=== PATIENT | male | born 1955 | race Caucasian/White ===

== ENCOUNTER 2016-12-26 17:56 | Emergency (ER) | payer OTHER ==
[2016-12-26 18:00] VITALS: BP 172/71; PULSE 61; RESP 18; TEMP 97.8
--- NOTE | 2016-12-26 18:50 | ED ---
General Adult HPI - General Chief complaint: Wound/Laceration Stated complaint: finger pain Time Seen by Provider: 12/26/16 18:36 Source: patient, RN notes reviewed Mode of arrival: ambulatory Limitations: no limitations - History of Present Illness Initial comments: This is a 61-year-old male who presents with a laceration to the left index finger that happened approximately 6 hours ago. Patient states he is on Plavix daily. Patient states he cut his left thumb with a utility knife. Patient states he is up-to-date on his tetanus shot. Patient denies any numbness/ tingling/weakness.Patient denies any recent fever, chills, shortness breath, chest pain, abdominal pain, nausea/vomiting/diarrhea, back pain, hematuria, headache, or visual changes, or any other complaints. - Related Data Home Medications Medication Instructions Recorded Confirmed Metoprolol Succinate (ER) [Toprol 12.5 mg PO BID 05/25/14 10/09/15 XL] hydrALAZINE HCL [Apresoline] 50 mg PO BID 05/25/14 10/09/15 Aspirin 325 mg PO DAILY 08/28/15 10/09/15 Atorvastatin [Lipitor] 80 mg PO DAILY 08/28/15 10/09/15 Glimepiride [Amaryl] 1 mg PO AC-BRKFST 08/28/15 10/09/15 metFORMIN HCL [Glucophage] 500 mg PO DAILY 08/28/15 10/09/15 traZODone HCL [Desyrel] 100 mg PO HS 08/28/15 10/09/15 HYDROcodone/APAP 7.5-325MG [[place] 1 tab PO Q4H PRN 09/04/15 10/09/15 7.5-325] Lisinopril [Zestril] 2.5 mg PO BID 09/04/15 10/09/15 Previous Rx's Medication Instructions Recorded Furosemide [Lasix] 80 mg PO BID #60 tablet 05/26/14 Clopidogrel [Plavix] 75 mg PO DAILY #30 tab 09/07/15 Cephalexin [Keflex] 500 mg PO Q12HR 7 Days 12/26/16 Allergies Allergy/AdvReac Type Severity Reaction Status Date / Time No Known Allergies Allergy Verified 12/26/16 18:00 Review of Systems ROS Statement: Those systems with pertinent positive or pertinent negative responses have been documented in the HPI. ROS Other: All systems not noted in ROS Statement are negative. Past Medical History Past Medical History: Chest Pain / Angina, Heart Failure, Diabetes Mellitus, Hyperlipidemia, Hypertension, Myocardial Infarction (IA), Pneumonia Additional Past Medical History / Comment(s): 10/09/15 Pt admitted s/p redo bilateral fem fem crossover graft. Other HX: pvd,brochitis,kidney stone, arthritis bilateral hands fingers and R ankle ,n/t bilateral feet Last Myocardial Infarction Date:: UNSURE History of Any Multi-Drug Resistant Organisms: None Reported Past Surgical History: Adenoidectomy, AICD, Appendectomy, Heart Catheterization , Orthopedic Surgery, Pacemaker, Tonsillectomy Additional Past Surgical History / Comment(s): 10/09/15 Redo bilateral femfem crossover graft. Other SX: left leg arterial bypass, pacemaker/defibrillator, sx lt hand, rt foot,cataracts,ABD AORTAGRAM,LEFT ARTERIAL ANGIOGRAM, LEFT ILIAC STENTING 09/05/15, R ankle surgery. Past Anesthesia/Blood Transfusion Reactions: Postoperative Nausea & Vomiting ( PONV) Type of Cardiac Device: Permanent Pacemaker, AICD Device Placement Date:: february 2014 Past Psychological History: No Psychological Hx Reported Additional Psychological History / Comment(s): Pt resides with his significant other. He uses no assistive devices. He drives. He is normally independent. Smoking Status: Former smoker Past Alcohol Use History: None Reported Past Drug Use History: None Reported - Past Family History Mother Family Medical History: Cancer Sister(s) Family Medical History: Cancer General Exam - General Exam Comments Initial Comments: General: The patient is awake and alert, in no distress, and does not appear acutely ill. Neck: The neck is supple, there is no tenderness or JVD. Cardiovascular: There is a regular rate and rhythm. No murmur, rub or gallop is appreciated. Respiratory: Lungs are clear to auscultation, respirations are non-labored, breath sounds are equal. No wheezes, stridor, rales, or rhonchi. Musculoskeletal: Full range of motion, strength 5/5 and Sensation intact. Neurological: A&O x 3. CN II-XII intact, There are no obvious motor or sensory deficits. Coordination appears grossly intact. Speech is normal. Skin: There is approximately 3.5 laceration to the palmar aspect of the left index finger just below the DIP joint extending to the tip of the finger. There is current active bleeding. Skin is warm and dry and no rashes are noted. Psychiatric: Normal mood and affect. Limitations: no limitations Course Vital Signs 12/26/16 17:57 Temperature 97.8 F Pulse Rate 61 Respiratory 18 Rate Blood Pressure 172/71 O2 Sat by Pulse 97 Oximetry Procedures - Procedures Initial comment: The skin was anesthetized with 1% lidocaine. The laceration was then cleansed and irrigated with normal saline. The wound was inspected, and there was no evidence of injury to deep structures. No foreign body was noted in the wound. A total of 5 skin sutures were placed utilizing 5-0 Ethilon. Laceration is approx 2.5 cm. Medical Decision Making - Medical Decision Making This is a 61-year-old male who presents with laceration to the left index finger 6 hours. On physical exam There is approximately 3.5 cm laceration to the palmar aspect of the left index finger just below the DIP joint extending to the tip of the finger. There is current active bleeding. An x-ray of the left hand was done and reviewed showing: #1 partial absence of the distal phalanx tuft of the second digit with overlying soft tissue abnormality, likely chronic. #2 otherwise no evidence of acute fracture or dislocation. #3 mild degenerative changes. Report read by Dr. Angulo Because patient is currently on anticoagulants discussed that the patient will need a few sutures right compression and stop the bleeding. I discussed that patient will be put on a course of antibiotics to prevent infection. The skin was anesthetized with 1% lidocaine. The laceration was then cleansed and irrigated with normal saline. The wound was inspected, and there was no evidence of injury to deep structures. No foreign body was noted in the wound. A total of 5 skin sutures were placed utilizing 5-0 Ethilon. Laceration is approx 2.5 cm. Patient tolerated procedure well. There is no active bleeding after sutures were placed. Patient was given a finger splint to protect sutures. I discussed that sutures need to be removed in 8-10 days. I discussed that rinsing and showering are okay but to avoid submerging the wound in water. Discussed [id number] Tylenol and Motrin as needed for any pain. I discussed use of topical Neosporin. I discussed return parameters and signs of infection.Discussed that patient should follow up with PCP in one to 2 days or return to the [facility] for any worsening symptoms or for any further concerns. Patient was receptive to this plan and patient will be discharged home. Disposition Clinical Impression: Laceration Disposition: HOME SELF-CARE Condition: Good Instructions: Laceration (ED), Care For Your Stitches (ED) Additional Instructions: Please have sutures removed in 8-10 days. Please finish the entire course of antibiotics. Please keep the area clean and dry. Rinsing and showering are okay but please avoid submerging the wound in water. May apply topical Neosporin. Please follow-up with family doctor in the next 2 days of symptoms have not improved. Please return to emergency room if the symptoms increase or worsen or for any other concerns. Prescriptions: Cephalexin [Keflex] 500 mg PO Q12HR 7 Days Referrals: Moises Bailey MD [Primary Care Provider] - 1-2 days
--- NOTE | 2016-12-26 19:07 | XR ---
EXAMINATION TYPE: XR hand complete LT DATE OF EXAM: 12/26/2016 6:50 PM COMPARISON: NONE HISTORY: Hand pain TECHNIQUE: 3 views of the left hand were obtained. FINDINGS: There is partial absence of the second digit distal phalanx tuft with overlying soft tissue abnormality. No focal laceration is identified, this is likely a chronic finding. Mild sclerosis is seen at the first carpal metacarpal joint as well as few osseous lucencies at the distal interphalang eal joint of the third digit and near the radial styloid, likely on a degenerative basis. Otherwise t he joint spaces are maintained and no acute fracture is identified. IMPRESSION: 1. Partial absence of the distal phalanx tuft of the second digit with overlying soft tissue abnormal ity, likely chronic. 2. Otherwise no evidence of acute fracture or dislocation 3. Mild degenerative changes.
== END 2016-12-26 19:33 | disposition home or self-care (01) ==
LOC: EC 17:56
DX: E11.9 Type 2 diabetes mellitus without complications (principal); I10 Essential (primary) hypertension; E78.5 Hyperlipidemia, unspecified; Z95.810 Presence of automatic (implantable) cardiac defibrillator; Z98.61 Coronary angioplasty status; Z79.01 Long term (current) use of anticoagulants; I25.2 Old myocardial infarction; Z79.84 Long term (current) use of oral hypoglycemic drugs; Z79.02 Long term (current) use of antithrombotics/antiplatelets; Z87.891 Personal history of nicotine dependence
CPT/HCPCS: 12001; 99283

== ENCOUNTER → 2017-02-19 | Outpatient (CLI) | payer OTHER ==
[2017-02-19 17:31] LABS: Anion Gap 12 mmol/L; Blood Urea Nitrogen 40 mg/dL (9-20); Calcium 8.9 mg/dL (8.4-10.2); Carbon Dioxide 25 mmol/L (22-30); Chloride 103 mmol/L (98-107); Glucose 105 mg/dL (74-99); Non-African American GFR(MDRD) >60 (>60 ml/min/1.73 sqM); Potassium 4.9 mmol/L (3.5-5.1); Sodium 140 mmol/L (137-145)
[2017-02-19 20:45] LABS: Basophils # (A) 0.1 k/uL (0-0.2); Basophils % (A) 1 %; CH 28.9; CHCM 32.5; Eosinophils # (A) 0.4 k/uL (0-0.7); Eosinophils % (A) 5 %; HCT 35.8 % (39.0-53.0); HDW 2.43; HGB 12.1 gm/dL (13.0-17.5); Luc # (Auto) 0.26; Luc % (Auto) 3; Lymphocytes # (A) 2.9 k/uL (1.0-4.8); Lymphocytes % (A) 37 %; MCH 30.2 pg (25.0-35.0); MCHC 33.8 g/dL (31.0-37.0); MCV 89.3 fL (80.0-100.0); Mean Platelet Volume 7.7; Monocytes # (A) 0.4 k/uL (0-1.0); Monocytes % (A) 5 %; Neutrophils # (A) 3.9 k/uL (1.3-7.7); Neutrophils % (A) 49 %; RBC 4.01 m/uL (4.30-5.90); RDW 13.9 % (11.5-15.5); WBC 7.9 k/uL (3.8-10.6); WBC (Perox) 8.48
== END ==
LOC: LABPAT 16:40
PROVIDERS: ATTEND Urology
DX: Z01.812 Encounter for preprocedural laboratory examination (principal); N40.1 Benign prostatic hyperplasia with lower urinary tract symptoms; E78.5 Hyperlipidemia, unspecified; R39.14 Feeling of incomplete bladder emptying
CPT/HCPCS: 80048; 85025

== ENCOUNTER 2017-02-27 09:11 | Day surgery (SDC) | payer MEDICARE, OTHER ==
[2017-02-24 16:21] VITALS: BMI 32.5
[~2017-02-27 09:11] MED LIST: DEXAMETHASONE SOD PHOSPHATE 10 MG/ML 1 ML VIAL IV ONE; HYDROmorphone 1 MG/ML 1 ML SYRINGE IVP PRN; MIDAZOLAM 2 MG/2 ML VIAL IV PRN; ONDANSETRON 4 MG/2 ML VIAL IVP ONE; SCOPOLAMINE 1.5MG/72HR PATCH TRANSDERM ONE
[2017-02-27 09:47] LABS: Glucose,Whole Blood 147 mg/dL (75-99)
[2017-02-27] MEDS ORDERED: LIDOCAINE 1% 20 ML VIAL (10MG/ML) FOR IV START INTRADERMA ONE (09:55)
[2017-02-27] MEDS: LACTATED RINGERS 1,000 ML IV SCH (09:55)
[2017-02-27] MEDS: ceFAZolin 2 GM in SODIUM CHLORIDE 0.9% 100 ML IVPB ONE ×2 (11:50→12:05)
[2017-02-27] MEDS ORDERED: PROPOFOL 10 MG/ML 20 ML VIAL IV ONE (11:50)
[2017-02-27] MEDS ORDERED: LIDOCAINE 1% INJ 10MG/ML (20 ML MDV) ONE (11:50)
[2017-02-27] MEDS ORDERED: MIDAZOLAM 2 MG/2 ML VIAL ONE (11:50)
--- NOTE | 2017-02-27 13:14 | P.OP ---
Date of Procedure: 02/27/17 Preoperative Diagnosis: BPH with Obstruction Postoperative Diagnosis: Same Procedure(s) Performed: Cystoscopy, Bipolar Transurethral Resection of Prostate (TURP) Anesthesia: spinal Surgeon: Gilberto Cordova Estimated Blood Loss (ml): 50 IV fluids (ml): 400 Pathology: other (Prostate chips) Condition: stable Disposition: PACU Indications for Procedure: He is a 61-year-old male with a right spermatocele. He reports a weak, hesitant stream, difficulty emptying his bladder, and nocturia. He has failed treatment with tamsulosin and Ditropan. DAREN revealed the prostate to be mildly enlarged but smooth. Cystoscopy shows evidence of BPH, and he desires a TURP. He has been cleared by Dr. Gandara, who advises spinal anesthesia. Operative Findings: Bilobar BPH with high median bar. Description of Procedure: The patient was taken in the operating room and placed in the dorsolithotomy position after being given a spinal anesthetic, The external genitalia was prepped and draped sterilely. The 25-Greenlandic ACMI resectoscope sheath was introduced into the bladder. The bladder was inspected. Both ureteral orifices were of normal anatomic location and configuration, and clear urine effluxed from both. No tumors or foreign bodies were seen. Examination of the prostate revealed complete obstruction with a bilobar configuration and a high median bar. Using the bipolar cutting loop, the posterior vesical neck was incised in the midline, extending up to the verumontanum. Next, the lateral lobes were resected down to the surgical capsule. The floor of the prostate was then resected, proximal to the verumontanum. Lastly, any remaining anterior tissue was resected. The prostatic fossa was then carefully examined. The remaining apical tissue was carefully resected. The resection was carried down to the surgical capsule in all 4 quadrants. The prostatic fossa was then carefully examined, and any areas of bleeding were controlled with electrocautery. Excellent hemostasis was attained. The resectoscope was withdrawn into the bulbous urethra. The external urinary sphincter remained intact. The prostatic fossa was open. The Stream5 evacuator was used to remove all prostate chips from the bladder. These were saved and sent for pathologic examination. The resectoscope was removed, and a 20 Greenlandic Crandall catheter was placed. The return was essentially clear. The patient tolerated the procedure well was taken to the recovery room in stable condition.
[2017-02-27] MEDS ORDERED: MAG HYDROX/AL HYDROX/SIMETH 30 ML CUP PO PRN (13:15)
[2017-02-27] MEDS ORDERED: ACETAMINOPHEN TAB 325 MG TAB PO PRN (13:15)
[2017-02-27] MEDS ORDERED: BELLADONNA-OPIUM 16.2-60 MG 1 EACH SUPP RECTAL PRN (13:15)
[2017-02-27 13:36] LABS: Glucose,Whole Blood 128 mg/dL (75-99)
[2017-02-27] MEDS: DEXTROSE 5%-0.45% NACL 1,000 ML IV SCH (14:44)
[2017-02-27] MEDS: HYDROcodone/APAP 7.5-325MG 1 EACH TAB PO SCH ×2 (15:57→21:53)
[2017-02-27] MEDS: CARVEDILOL 3.125 MG TAB PO SCH (18:23)
[2017-02-27] MEDS ORDERED: traZODone HCL 100 MG TAB PO SCH (21:00)
[2017-02-27] MEDS: FUROSEMIDE 40 MG TAB PO SCH (21:52)
[2017-02-27] MEDS: DOCUSATE 100 MG CAP PO SCH (21:52)
[2017-02-28 01:23] VITALS: TEMP 98.1
[2017-02-28] MEDS: DEXTROSE 5%-0.45% NACL 1,000 ML IV SCH (03:02)
[2017-02-28] MEDS: DOCUSATE 100 MG CAP PO SCH (07:12)
[2017-02-28] MEDS: CARVEDILOL 3.125 MG TAB PO SCH (07:13)
[2017-02-28] MEDS: HYDROcodone/APAP 7.5-325MG 1 EACH TAB PO SCH (07:13)
[2017-02-28] MEDS: FUROSEMIDE 40 MG TAB PO SCH (07:13)
[2017-02-28] MEDS: LACTATED RINGERS 1,000 ML IV SCH (07:18)
[2017-02-28] MEDS ORDERED: PANTOPRAZOLE 40 MG TABLET PO SCH (07:30)
[2017-02-28] MEDS ORDERED: GLIMEPIRIDE 1 MG TAB PO SCH (07:30)
[2017-02-28] MEDS ORDERED: LISINOPRIL 10 MG TAB PO SCH (09:00)
[2017-02-28] MEDS ORDERED: METOPROLOL SUCCINATE (ER) 50 MG TAB.ER.24H PO SCH (09:00)
[2017-02-28] MEDS ORDERED: ATORVASTATIN 80 MG TAB PO SCH (09:00)
[2017-02-28] MEDS ORDERED: SPIRONOLACTONE 25 MG TAB PO SCH (09:00)
[2017-02-28 09:12] VITALS: BP 135/65; PULSE 64; RESP 15
--- NOTE | 2017-03-02 12:20 | P.DS ---
Providers Expected date of discharge: 02/28/17 Attending physician: Gilberto Cordova Primary care physician: Moises Gorehven Hospital Course: On the day of admission, the patient underwent an uncomplicated bipolar transurethral resection of prostate under spinal anesthesia. The postoperative course was unremarkable. He remained afebrile with stable vital signs. The Crandall catheter drained clear urine overnight, without the need for any irrigation. He was comfortable at the time of discharge. Procedures: Cystoscopy, bipolar transurethral resection of prostate (TURP) on 02/27/2017. Patient Condition at Discharge: Good Plan - Discharge Summary New Discharge Prescriptions: HYDROcodone/APAP 7.5-325MG [[place] 7.5-325] 1 tab PO Q6HR PRN #15 tab PRN Reason: Moderate To Severe Pain Discharge Medication List Aspirin 325 mg PO DAILY 08/28/15 [History] Atorvastatin [Lipitor] 80 mg PO DAILY 08/28/15 [History] Glimepiride [Amaryl] 1 mg PO AC-BRKFST 08/28/15 [History] traZODone HCL [Desyrel] 100 mg PO HS 08/28/15 [History] HYDROcodone/APAP 7.5-325MG [[place] 7.5-325] 1 tab PO TID 09/04/15 [History] Clopidogrel [Plavix] 75 mg PO DAILY #30 tab 09/07/15 [Rx] Furosemide [Lasix] 40 mg PO BID 02/24/17 [History] Lisinopril [Zestril] 10 mg PO DAILY 02/24/17 [History] Metoprolol Succinate (ER) [Toprol Xl] 50 mg PO DAILY 02/24/17 [History] Omeprazole 20 mg PO DAILY 02/24/17 [History] Spironolactone [Aldactone] 25 mg PO DAILY 02/24/17 [History] Carvedilol [Coreg] 3.125 mg PO BID 02/27/17 [History] HYDROcodone/APAP 7.5-325MG [[place] 7.5-325] 1 tab PO Q6HR PRN #15 tab 02/28/17 [ Rx] Follow up Appointment(s)/Referral(s): Amy Felix, PAC [PHYSICIAN ORE CHARGER] - 03/03/17 10:50 am Activity/Diet/Wound Care/Special Instructions: Discharge home with Crandall catheter. Drink plenty of fluids. Diet as tolerated. Avoid strenuous activity. Avoid constipation; takes stool softener if necessary. Hold Plavix and aspirin. No driving for 3 days. Okay to shower. F/U with Amy Felix 4/10 am. Discharge Disposition: HOME SELF-CARE
--- NOTE | 2017-03-07 15:20 | CONS ---
DATE OF CONSULTATION: 02/28/2017 CHIEF COMPLAINT: Obstructive uropathy. HISTORY OF PRESENT ILLNESS: This 61-year-old otherwise healthy white male has come in for an elective transurethral prostatectomy. He has a history of mild central hypertension and type 2 NIDDM. He also has a history of coronary artery disease and peripheral vascular occlusive disease as well as congestive heart failure, but all of these have been under control and have not been a problem for him of late. REVIEW OF SYSTEMS: He has had no change in vision or hearing, chest pain, cough, hemoptysis, shortness of breath, sputum production, orthopnea, PND, recent angina, palpitations, syncope, abdominal pain, nausea, vomiting, food intolerance, melena, hematochezia, jaundice, hepatitis, cirrhosis, hematuria, prostatitis, carcinoma of the prostate. Past medical history, family history, and personal and social histories ( ). He is NOT ALLERGIC TO ANY MEDICATION. DAILY MEDICATION: 1. Metoprolol 50 mg 1/2 tablet twice a day. 2. Omeprazole 20 mg once a day. 3. Ditropan XL 10 mg once a day. 4. Amaryl 1 mg once a day. 5. Vicodin 7.5 b.i.d. p.r.n. 6. Lasix 40 mg twice a day. 7. Lipitor 80 mg at bedtime. 8. Clopidogrel 75 mg once a day. 9. Lisinopril 10 mg once a day. 10. Aldactone 25 mg once a day. 11. Full-strength aspirin once a day. Past medical history reveals that he has had a T&A, ( ) of the right ankle, pacemaker and arterial grafts for PVOD. Apparently he also has had an aortofemoral bypass and a transfemoral bypass. He also has a pacemaker/defibrillator. He used to smoke but does not smoke any longer. PHYSICAL EXAMINATION: Blood pressure 132/62, pulse 58 and regular, respiration 18. He is afebrile. In general he appeared to well developed, well nourished, in no acute distress. Skin color is normal. Skin is warm and dry. Lymph nodes are not enlarged. Head, ears, eyes, nose, mouth and throat were normal. Neck veins were not distended. Carotids were normal. Chest was clear. Cardiac exam demonstrated normal sinus rhythm with no murmurs or extra sounds. The abdomen was soft and nontender without visceromegaly or masses. Extremities were normal. Neurologically he was intact. Crandall catheter was in place. IMPRESSION: 1. Benign prostatic hypertrophy. 2. Hypertension. 3. Coronary artery disease. 4. Peripheral vascular occlusive disease. 5. Atherosclerotic ( ). 6. Type 2 hhr-zcjvrmi-hidgmdwoh diabetes mellitus. 7. History of cardiac arrhythmia. RECOMMENDATION: None. He is stable at the present time. Blood sugars are adequate and he does not have any chest pain or arrhythmias. No further recommendations. Thank you.
== END 2017-02-28 12:05 | disposition home or self-care (01) ==
LOC: OR 09:11 → 3SUR 13:12 → OR 02-28 12:05
PROVIDERS: ATTEND Urology
DX: N40.1 Benign prostatic hyperplasia with lower urinary tract symptoms (principal); R39.14 Feeling of incomplete bladder emptying; N43.40 Spermatocele of epididymis, unspecified; E78.5 Hyperlipidemia, unspecified; E11.9 Type 2 diabetes mellitus without complications; Z79.84 Long term (current) use of oral hypoglycemic drugs; I25.119 Atherosclerotic heart disease of native coronary artery with unspecified angina pectoris; I11.0 Hypertensive heart disease with heart failure; I50.9 Heart failure, unspecified; Z87.891 Personal history of nicotine dependence; Z95.810 Presence of automatic (implantable) cardiac defibrillator; I25.2 Old myocardial infarction; K21.9 Gastro-esophageal reflux disease without esophagitis; I42.8 Other cardiomyopathies; I73.9 Peripheral vascular disease, unspecified; Z79.82 Long term (current) use of aspirin; Z79.02 Long term (current) use of antithrombotics/antiplatelets; Z79.891 Long term (current) use of opiate analgesic; Z79.899 Other long term (current) drug therapy
CPT/HCPCS: 88305; 52630; J2250; J1100; J0690; J2405; J2001; J2704

== ENCOUNTER → 2018-02-18 | Outpatient (CLI) | payer MEDICARE, OTHER ==
[2018-02-18 11:01] LABS: HCT 39.6 % (39.0-53.0); HGB 13.3 gm/dL (13.0-17.5); MCH 28.2 pg (25.0-35.0); MCHC 33.6 g/dL (31.0-37.0); MCV 83.8 fL (80.0-100.0); Platelet Count 224 k/uL (150-450); RBC 4.72 m/uL (4.30-5.90); RDW 13.8 % (11.5-15.5); WBC 8.2 k/uL (3.8-10.6)
[2018-02-18 11:13] LABS: Anion Gap 12 mmol/L; Blood Urea Nitrogen 25 mg/dL (9-20); Calcium 9.5 mg/dL (8.4-10.2); Carbon Dioxide 28 mmol/L (22-30); Chloride 101 mmol/L (98-107); Glucose 108 mg/dL (74-99); Potassium 5.5 mmol/L (3.5-5.1); Sodium 141 mmol/L (137-145)
== END | disposition home or self-care (01) ==
LOC: LABWHC1 10:35
PROVIDERS: ATTEND Internal Medicine Interventional Cardiology
DX: I11.0 Hypertensive heart disease with heart failure (principal); I47.2 Ventricular tachycardia; I50.31 Acute diastolic (congestive) heart failure
CPT/HCPCS: 36415; 80048; 85027

== ENCOUNTER → 2018-08-06 | Outpatient (CLI) | payer MEDICARE, OTHER ==
[2018-08-06 08:52] LABS: Calcium 10.1 mg/dL (8.4-10.2)
[2018-08-06 09:10] LABS: Potassium 6.1 mmol/L (3.5-5.1)
== END | disposition home or self-care (01) ==
LOC: LABWHC1 08:00
PROVIDERS: ATTEND Internal Medicine Clinical Cardiac Electrophysiology
DX: I42.8 Other cardiomyopathies (principal)
CPT/HCPCS: 36415; 80048

== ENCOUNTER → 2019-06-29 | Outpatient (CLI) | payer MEDICARE, OTHER ==
[2019-06-29 16:44] LABS: HCT 39.5 % (39.0-53.0); HGB 13.2 gm/dL (13.0-17.5); MCH 29.4 pg (25.0-35.0); MCHC 33.4 g/dL (31.0-37.0); MCV 87.9 fL (80.0-100.0); Mean Platelet Volume 7.8; Platelet Count 194 k/uL (150-450); RBC 4.49 m/uL (4.30-5.90); WBC 9.8 k/uL (3.8-10.6)
[2019-06-29 16:51] LABS: Potassium 5.3 mmol/L (3.5-5.1)
== END | disposition home or self-care (01) ==
LOC: LABPAT 16:12
PROVIDERS: ATTEND Internal Medicine Interventional Cardiology
DX: Z01.812 Encounter for preprocedural laboratory examination (principal); I70.213 Atherosclerosis of native arteries of extremities with intermittent claudication, bilateral legs
CPT/HCPCS: 36415; 80051; 82565; 84520; 85027

== ENCOUNTER 2019-07-16 10:34 | Day surgery (SDC) | payer MEDICARE, OTHER ==
[2019-07-15 08:58] VITALS: BMI 34.0
[~2019-07-16 10:34] MED LIST changes: -DEXAMETHASONE SOD PHOSPHATE 10 MG/ML 1 ML VIAL IV ONE; -HYDROmorphone 1 MG/ML 1 ML SYRINGE IVP PRN; -MIDAZOLAM 2 MG/2 ML VIAL IV PRN; -ONDANSETRON 4 MG/2 ML VIAL IVP ONE; -SCOPOLAMINE 1.5MG/72HR PATCH TRANSDERM ONE; +SODIUM CHLORIDE 0.9% 1,000 ML in EMPTY BAG 1 BAG IV ONE
[2019-07-16 11:46] VITALS: TEMP 98.5
[2019-07-16 12:01] LABS: Glucose,Whole Blood 132 mg/dL (75-99)
[2019-07-16] MEDS ORDERED: SODIUM CHLORIDE 0.9% 1,000 ML IV ONE (13:45)
[2019-07-16] MEDS ORDERED: LIDOCAINE 1% INJ 10MG/ML (20 ML MDV) SQ ONE (13:47)
[2019-07-16] MEDS ORDERED: MIDAZOLAM (PF) 2 MG/2 ML VIAL IV ONE (13:47)
[2019-07-16] MEDS: VERAPAMIL SYRINGE (5 MG/10 ML) INTRAARTER ONE ×2 (13:49→14:00)
[2019-07-16] MEDS ORDERED: IOPAMIDOL-250 100ML BTL INTRAARTER ONE ×2 (14:02)
[2019-07-16] MEDS ORDERED: HEPARIN SODIUM 1,000 UN/ML (10ML VL) IV ONE (14:11)
[2019-07-16] MEDS ORDERED: SODIUM CHLORIDE 0.9% 1,000 ML IV SCH (14:15)
[2019-07-16 14:40] LABS: Glucose,Whole Blood 105 mg/dL (75-99)
[2019-07-16 15:55] VITALS: RESP 18
[2019-07-16 15:56] VITALS: BP 128/64; PULSE 70
--- NOTE | 2019-07-16 21:51 | AN ---
ANGIOGRAPHY REPORT DATE OF SERVICE: July 16, 2019 PERFORMING PHYSICIAN: Valeriy Gandara M.D. PROCEDURE PERFORMED: 1. Abdominal aortogram. 2. Bilateral lower extremities runoff. INDICATIONS: This is a pleasant 63-year-old gentleman with history of peripheral arterial disease where he underwent in the past left iliac stenting and subsequently left to right fem- fem bypass, was experiencing symptoms of bilateral lower extremities intermittent claudication. He was brought today to undergo an aortogram with runoff. APPROACH: Right radial artery. COMPLICATION: None. LEVEL OF SEDATION: Moderate with sedation length of 30 minutes. PROCEDURE DESCRIPTION: After obtaining an informed consent, the patient was brought to the cardiac slab grinder. The right radial artery was cannulated using micropuncture technique, the micropuncture wire passed easily then I placed a 5-Malaysian sheath. I did give the patient 10,000 units of heparin IV. I did an abdominal aortogram and bilateral lower extremities runoff using 5-Malaysian pigtail catheter which was initially placed at the level of the renal arteries. Then it was pulled into above the bifurcation of the aorta. The procedure was completed without any complication. SELECTIVE PERIPHERAL ANGIOGRAM: 1. The aorta is angiographically normal. 2. Iliac arteries: The right common and right external iliac arteries are occluded. The left external iliac artery is stented with intermediate disease at the distal edge of the stent appeared to be in the range of 40% to 50%. 3. Common femoral arteries: The right and left common femoral arteries appeared to be angiographically normal with a patent fem-fem bypass. 4. Profunda: Both profunda are angiographically normal. 5. SFA: Both SFA are normal. 6. Popliteal: Both popliteals are normal. 7. The arteries below the knee: The arteries below the knee were not well visualized but probably there are 3 vessels runoff below the knee bilaterally. CONCLUSION: 1. Intermediate disease involving the stent in the left iliac artery. 2. Patent tfyd-mb-adzac fem-fem bypass. MMODL / IJN: [id number] /
--- NOTE | 2019-07-19 08:52 | IR ---
EXAMINATION TYPE: IR angio abdominal w runoff DATE OF EXAM: 07/16/2019 COMPARISON: NONE HISTORY: Fluoroscopy time. Fluoroscopy was provided to the referring clinician. 2.1 minutes of fluoroscopy provided.
== END 2019-07-16 18:10 | disposition home or self-care (01) ==
LOC: CATHCVL 10:34
PROVIDERS: ATTEND Internal Medicine Interventional Cardiology
DX: E11.51 Type 2 diabetes mellitus with diabetic peripheral angiopathy without gangrene (principal); I70.213 Atherosclerosis of native arteries of extremities with intermittent claudication, bilateral legs; I43 Cardiomyopathy in diseases classified elsewhere; Z95.810 Presence of automatic (implantable) cardiac defibrillator; E78.5 Hyperlipidemia, unspecified; Z79.82 Long term (current) use of aspirin; Z79.899 Other long term (current) drug therapy; I11.0 Hypertensive heart disease with heart failure; I50.32 Chronic diastolic (congestive) heart failure; Z79.4 Long term (current) use of insulin
CPT/HCPCS: 36200; 75625; 75716; C1769 ×2; C1894; J2001; J1644; Q9966; J2250

== ENCOUNTER → 2021-01-05 | Outpatient (CLI) | payer MEDICARE, OTHER ==
--- NOTE | 2021-01-10 14:07 | P.ARTDOP ---
Arterial Doppler LOWER EXTREMITY ARTERIAL DOPPLER: DATE OF SERVICE: 01/05/2020 Reason for study: Bilateral calf claudication. Doppler waveforms: Atypical right femoral and popliteal and monophasic below. Atypical throughout on the left.. Pulse volume recording: . Pressure gradients: Above the thigh bilaterally and across the knee bilaterally. Ankle-brachial indices: 0.44 on the right and 0.51 on the left.. Toe brachial indices: 0.17 on the right, 0.26 on the left Impression: Moderate right iliofemoral disease and at least moderate right fem-pop disease. Combination suggests severe compromise on the right. Moderate left fem-pop disease with probable iliac component. Vascular specially consult recommended..
== END | disposition home or self-care (01) ==
LOC: RADUSWWP 14:01
PROVIDERS: ATTEND Internal Medicine
DX: I73.89 Other specified peripheral vascular diseases (principal)
CPT/HCPCS: 93923

== ENCOUNTER → 2021-01-09 | Outpatient (CLI) | payer MEDICARE, OTHER ==
[2021-01-09 15:21] LABS: HCT 37.8 % (39.6-50.0); HGB 11.9 g/dL (13.0-17.0); MCH 28.7 pg (27.0-32.0); MCHC 31.5 g/dL (32.0-37.0); MCV 91.3 fL (80.0-97.0); Mean Platelet Volume 11.5 fL (9.5-12.2); Platelet Count 274 X 10*3/uL (140-440); RBC 4.14 X 10*6/uL (4.40-5.60); RDW 13.4 % (11.5-14.5); WBC 7.33 X 10*3/uL (4.50-10.00)
[2021-01-09 17:18] LABS: Hemoglobin A1C 9.6 % (4.0-6.0)
[2021-01-09 17:25] LABS: African American GFR (CKD) 51.3 (60.0-200.0); Albumin 4.7 g/dL (3.80-4.90); Albumin/Globulin Ratio 2.35 (1.60-3.17); Anion Gap 8.9 mmol/L (4.00-12.00); Calcium 9.4 mg/dL (8.7-10.3); Carbon Dioxide 25.1 mmol/L (21.6-31.8); Chol/HDL Ratio 7.32; Magnesium 1.2 mg/dL (1.5-2.4); Non-African American GFR(CKD) 44.2 (60.0-200.0); Potassium 5.6 mmol/L (3.5-5.5); Total Bilirubin 0.2 mg/dL (0.2-1.2); Total Protein 6.7 g/dL (6.2-8.2)
== END | disposition home or self-care (01) ==
LOC: LABWHC1 09:34
PROVIDERS: ATTEND Nurse Practitioner Adult Health
DX: E11.51 Type 2 diabetes mellitus with diabetic peripheral angiopathy without gangrene (principal); I10 Essential (primary) hypertension; E78.5 Hyperlipidemia, unspecified; I47.1 Supraventricular tachycardia
CPT/HCPCS: 36415; 80053; 80061; 83036; 83721; 83735; 84443; 84481; 85027

== ENCOUNTER 2021-01-22 05:53 | Day surgery (SDC) | payer MEDICARE, OTHER ==
[2021-01-16 14:51] VITALS: BMI 33.6
[2021-01-22] MEDS ORDERED: SODIUM CHLORIDE 0.9% 1,000 ML in EMPTY BAG 1 BAG IV ONE (06:00)
[2021-01-22] MEDS ORDERED: ASPIRIN 325 MG TAB ONE (06:20)
[2021-01-22] MEDS ORDERED: CLOPIDOGREL 75 MG TAB ONE (06:20)
[2021-01-22] MEDS ORDERED: SODIUM CHLORIDE 0.9% 1,000 ML IV ONE (06:25)
[2021-01-22 06:27] LABS: Glucose,Whole Blood 133 mg/dL (75-99)
[2021-01-22 06:39] LABS: Basophils # (A) 0.1 k/uL (0-0.2); Basophils % (A) 1 %; Eosinophils # (A) 0.6 k/uL (0-0.7); Eosinophils % (A) 5 %; HCT 41.9 % (39.0-53.0); HGB 13.9 gm/dL (13.0-17.5); Lymphocytes # (A) 3.2 k/uL (1.0-4.8); Lymphocytes % (A) 29 %; MCH 28.8 pg (25.0-35.0); MCHC 33.2 g/dL (31.0-37.0); MCV 86.5 fL (80.0-100.0); Mean Platelet Volume 7.8; Monocytes # (A) 0.6 k/uL (0-1.0); Monocytes % (A) 6 %; Neutrophils # (A) 6.3 k/uL (1.3-7.7); Neutrophils % (A) 58 %; Platelet Count 295 k/uL (150-450); RBC 4.84 m/uL (4.30-5.90); RDW 13.3 % (11.5-15.5); WBC 10.9 k/uL (3.8-10.6)
[2021-01-22 06:40] VITALS: RESP 18
[2021-01-22 06:43] VITALS: TEMP 98.6
[2021-01-22] MEDS ORDERED: MIDAZOLAM 2 MG/2 ML VIAL IV ONE (07:48)
[2021-01-22] MEDS ORDERED: LIDOCAINE 1% INJ 10MG/ML (20 ML MDV) SQ ONE (07:49)
[2021-01-22] MEDS ORDERED: VERAPAMIL SYRINGE (5 MG/10 ML) INTRAARTER ONE (07:50)
[2021-01-22] MEDS ORDERED: IOPAMIDOL-370 125ML BTL INJ ONE (08:07)
[2021-01-22] MEDS ORDERED: RX INFO: IV CONTRAST WAS GIVEN 1 EACH MISC MISCELLANE PRN (08:10)
[2021-01-22] MEDS ORDERED: SODIUM CHLORIDE 0.9% 1,000 ML IV SCH (08:15)
--- NOTE | 2021-01-22 09:38 | AN ---
ANGIOGRAPHY REPORT DATE OF SERVICE: January 22, 2021 PERFORMING PHYSICIAN: Valeriy Gandara MD. PROCEDURE PERFORMED: 1. An abdominal aortogram. 2. Bilateral lower extremities runoff. INDICATION: This is a 65-year-old gentleman who is known to have peripheral arterial disease where in the past he underwent left to right fem-fem bypass for occluded right common and right external iliac artery. Subsequently, he underwent stenting of the left external iliac artery as well as known to have stented aorta was seen in the office recently for symptoms of bilateral lower extremities discomfort, worse on the right side than the left side. He is almost at the stage of critical limb ischemia with resting pain without tissue loss as of yet. He underwent an ELI and that came into be critical on the right side and because of that, we decided to pursue with aortogram with runoff. APPROACH: Right radial artery. COMPLICATION: None. LEVEL OF SEDATION: Moderate with sedation length of 16 minutes. PROCEDURE DESCRIPTION: After obtaining an informed consent, the patient was brought to the cardiac laborer dairy farm. The right radial artery was cannulated using micropuncture technique, the micropuncture wire passed easily then I placed a 6-Armenian sheath at the right radial artery. I gave the patient 2 mg of verapamil IA. I did an aortogram with runoff using 5-Armenian pigtail catheter which was initially placed at the level of the renal arteries then it was advanced into above the bifurcation of the aorta. The procedure was completed without any complication. SELECTIVE PERIPHERAL ANGIOGRAM: 1. The aorta is stented and the stent is patent. 2. Common Iliac Arteries: The right common iliac artery is occluded, which seems to be in-stent occlusion and the left common iliac artery appeared to be stented and the stent is patent. 3. External Iliac Arteries: The right external iliac artery is occluded and the left external iliac artery is stented and the stent has mild in-stent restenosis. 4. Common Femoral Arteries: The right common femoral artery appeared to be occluded and the left common femoral artery appeared to have mild disease only. 5. The fem-fem bypass is occluded and we can see the stump from the left side. 6. Profunda: The profunda is patent bilaterally. 7. SFA: The SFA is patent bilaterally. 8. Popliteal: The right popliteal and left popliteal are occluded. 9. Below the knee: There are 3 vessels runoff below the knee seen on the left side more than the right side because opacification on the right side was extremely difficult. CONCLUSION: 1. Patent stent in the aorta to left common iliac artery. 2. Mild in-stent restenosis involving the left external iliac artery. 3. Occluded left to right fem-fem bypass. 4. Occluded bilateral popliteal. POSTPROCEDURE MANAGEMENT: 1. Given the above anatomy, I recommended the patient to be evaluated by a surgeon for the evaluation of redo left to right fem-fem bypass. 2. The alternative to that is to do percutaneous intervention on the current left to right fem-fem bypass. 3. The alternative also to perform angioplasty of the right common and right external iliac arteries. MMODL / IJN: [id number] /
[2021-01-22 12:19] VITALS: BP 148/71; PULSE 85
--- NOTE | 2021-01-22 12:38 | IR ---
Fluoroscopy HISTORY: Pain in leg 90 seconds fluoroscopy time supplied to the referring clinician. 155 intraoperative C-arm images doc ument the procedure. See dictated report from cardiology.
--- NOTE | 2021-01-29 11:48 | CDI ---
Outpatient Documentation Clarification Form Date: 01/29/21 CDS/Button Attaching Machine Operator Name: Ela Blank Phone: If any questions call Torri [place] Lead Generation Specialist at Patient Number: [id number] Patient Name: Matias Mejia Sr Admit Date: 01/22/21 Discharge Date: 01/22/21 ATTENTION: The [facility] coding Staff appreciate our assistance in clarifying documentation. Please respond to the clarification below the line at the bottom and electronically sign. The [facility] Coding staff will review the response and follow-up if needed. Please note: Queries are made part of the legal Health Record. If you have any questions, please contact the Lead Generation Specialist. Dear Dr. Gandara, Please provide clarification as to the cause of the occlusive PA. PAD/PVD is considered unspecified. Greatest specificity is required for medical necessity support. Is underlying cause of the Occlusive PAD one of the following? Arteriosclerotic disease of the arteries Arteritis Necrotic Due to embolism/thrombosis Other - please specify below Thank you for your kind consideration. Arteriosclerotic disease of the arteries. MTDD
== END 2021-01-22 12:44 | disposition home or self-care (01) ==
LOC: CATHCVL 05:53
PROVIDERS: ATTEND Internal Medicine Interventional Cardiology
DX: I70.213 Atherosclerosis of native arteries of extremities with intermittent claudication, bilateral legs (principal); I10 Essential (primary) hypertension; I42.8 Other cardiomyopathies; Z95.810 Presence of automatic (implantable) cardiac defibrillator; E78.5 Hyperlipidemia, unspecified; E66.9 Obesity, unspecified; Z68.33 Body mass index [BMI] 33.0-33.9, adult; I47.1 Supraventricular tachycardia; E11.51 Type 2 diabetes mellitus with diabetic peripheral angiopathy without gangrene; F17.200 Nicotine dependence, unspecified, uncomplicated; Z79.4 Long term (current) use of insulin; I47.2 Ventricular tachycardia; Z79.02 Long term (current) use of antithrombotics/antiplatelets; Z79.82 Long term (current) use of aspirin; Z79.899 Other long term (current) drug therapy
CPT/HCPCS: 36200; 75625; 75716; 84132; 85025; C1769 ×4; C1894; J2250; J2001; Q9967

== ENCOUNTER → 2021-02-13 | Outpatient (CLI) | payer MEDICARE, OTHER ==
[2021-02-13 11:22] LABS: Basophils # (A) 0.1 k/uL (0-0.2); Basophils % (A) 1 %; Eosinophils # (A) 0.4 k/uL (0-0.7); Eosinophils % (A) 4 %; HCT 39.9 % (39.0-53.0); HGB 13.6 gm/dL (13.0-17.5); Lymphocytes # (A) 2.4 k/uL (1.0-4.8); Lymphocytes % (A) 23 %; MCH 29.9 pg (25.0-35.0); MCHC 34.1 g/dL (31.0-37.0); MCV 87.6 fL (80.0-100.0); Mean Platelet Volume 7.8; Monocytes # (A) 0.6 k/uL (0-1.0); Monocytes % (A) 5 %; Neutrophils # (A) 6.9 k/uL (1.3-7.7); Neutrophils % (A) 66 %; Platelet Count 253 k/uL (150-450); RBC 4.55 m/uL (4.30-5.90); RDW 13.4 % (11.5-15.5); WBC 10.5 k/uL (3.8-10.6)
[2021-02-13 11:36] LABS: Potassium 4.8 mmol/L (3.5-5.1)
== END | disposition home or self-care (01) ==
LOC: LABPAT 10:52
PROVIDERS: ATTEND Surgery
DX: Z01.812 Encounter for preprocedural laboratory examination (principal); I73.9 Peripheral vascular disease, unspecified
CPT/HCPCS: 80051; 82565; 84520; 85025

== ENCOUNTER 2021-02-23 07:20 | Inpatient (IN) | payer MEDICARE, OTHER ==
[2021-02-20 16:25] VITALS: BMI 33.6
[~2021-02-23 07:20] MED LIST changes: -SODIUM CHLORIDE 0.9% 1,000 ML in EMPTY BAG 1 BAG IV ONE; +fentaNYL (PF) 50 MCG/ML 2 ML AMP IV PRN
[2021-02-23] MEDS: LACTATED RINGERS 1,000 ML IV SCH (08:10)
[2021-02-23] MEDS ORDERED: ONDANSETRON 4 MG/2 ML VIAL ONE (08:13)
[2021-02-23] MEDS ORDERED: DEXAMETHASONE SOD PHOSPHATE 4 MG/ML 1 ML VIAL IVP ONE (08:22)
[2021-02-23] MEDS ORDERED: ONDANSETRON 4 MG/2 ML VIAL IVP ONE (08:22)
[2021-02-23 08:27] LABS: Glucose,Whole Blood 181 mg/dL (75-99)
[2021-02-23] MEDS ORDERED: INSULIN ASPART (NovoLOG) 100 UNIT/ML VIAL SQ ONE ×2 (08:45→12:27)
[2021-02-23] MEDS ORDERED: MIDAZOLAM 2 MG/2 ML VIAL IVP ONE (08:45)
[2021-02-23] MEDS ORDERED: HEPARIN SODIUM,PORCINE 10,000 UNIT in SODIUM CHLORIDE 0.9% 1,000 ML IRRIGATION ONE (09:31)
[2021-02-23] MEDS ORDERED: ceFAZolin 1,000 MG VIAL IRRIGATION ONE (09:32)
[2021-02-23] MEDS ORDERED: IOPAMIDOL-370 50ML BTL MISCELLANE ONE ×3 (09:33)
[2021-02-23] MEDS ORDERED: GELATIN SPONGE,ABSORB (LARGE) 1 EACH SPONGE TOPICAL ONE (09:33)
[2021-02-23] MEDS ORDERED: THROMBIN (BOVINE) 5,000 UNIT VIAL TOPICAL ONE (09:34)
[2021-02-23] MEDS ORDERED: LACTATED RINGERS 1,000 ML IV ONE (10:03)
[2021-02-23] MEDS ORDERED: MORPHINE SULFATE 2 MG/ML SYRINGE IVP PRN (11:50)
[2021-02-23] MEDS ORDERED: HYDROcodone/APAP 5-325MG 1 EACH TAB PO PRN (11:50)
[2021-02-23] MEDS ORDERED: IBUPROFEN 800 MG TAB PO PRN (11:56)
--- NOTE | 2021-02-23 12:11 | P.OP ---
Description of Procedure: Date of Procedure: 02/23/2021 Preoperative Diagnosis: Occluded femoral to femoral artery bypass, claudication [place] classification 4 Postoperative Diagnosis: Same Procedure(s) Performed: #1 open thrombectomy of femoral to femoral artery bypass graft. #2 selective left femoral angiogram. #3 transluminal balloon angioplasty of the left common femoral artery anastomosis with a 7 x 20 mm balloon. #4 selective right femoral-popliteal, tibial angiogram Anesthesia: GETA Surgeon: Diaz Tolliver Estimated Blood Loss (ml): 400 mL IV Fluids/Urine Output: See anesthesia record Condition: stable Disposition: PACU Indications for Procedure: 65-year-old gentleman who originally presented to the office secondary to bilateral lower extremity claudication. He has a previous history of aorta unibody graft on the left with fem-fem bypass proximally 10 years ago which had to be revised 6 years ago. He recently underwent an angiogram that demonstrated patency of the aorta unibody graft with occlusion of the fem-fem bypass. There was very little reconstitution of the right lower extremity. He was having severe pain in his right lower extremity after walking approximately 15-20 feet. He was also having some issues with sleeping consistent with rest pain. He states he needed this redone again and presents today for surgical intervention possible revision bypass. Description of Procedure: After written informed consent was obtained the patient all risks benefits and competitions were described the patient is brought to the operative suite and laid in a supine position. The area of the abdomen and groins were prepped and draped in usual sterile fashion after appropriate anesthetic was performed per the anesthesiologist. A timeout was performed in normal fashion antibiotics were administered prior to incision. Attention was placed to the right leg and an oblique incision was created overlying the common femoral artery with a 10 blade scalpel and dissection was carried down with electrocautery to the common femoral artery and bypass graft. The bypass graft was dissected free in a circumferential manner and controlled with a vessel loop. The profundus femoris and superficial femoral artery were also dissected free in a circumferential manner and controlled with vessel loops. Once controlled patient was administered heparin and followed with serial ACTs and redosed to keep the ACT above 200. Graftotomy was then created in a transverse manner and utilizing a 5 Hilaria catheter thrombectomy was perf ormed throughout the entirety of the graft. Large amount of thrombus was removed. Once multiple passes with out any evidence of thrombus was performed there was pulsatile blood flow but it was diminished. Angiogram was obtained in the femoral-femoral bypass demonstrating stenosis at the inflow. Attention was then placed to the right femoral artery and thrombectomy was performed revealing good brisk backbleeding from the profundus as well as the superficial femoral artery. The graftotomy was then closed with 5-0 Prolene suture in an interrupted fashion. The graft was then accessed once again with a multipurpose needle and a 5-Khmer sheath was placed to give better visualization and work through for the any stenosis. 035 Glidewire was then placed and the lesion was crossed and a 7 x 20 mm balloon was utilized for balloon angioplasty across the anastomosis. Once completed angiogram was obtained demonstrating significant improvement in the stenosis with good brisk blood flow. Pulsatile blood flow was noted in the sheath. Femoral angiogram was obtained of the left lower extremity demonstrating brisk flow down to the popliteal with good filling of the profundus femoris without any evidence of thrombus. The sheath was then withdrawn and right lower extremity angiogram was obtained demonstrating brisk flow through to the profundus femoris and superficial femoral artery which was patent distally down to the distal popliteal right behind the knee where there was flush occlusion noted and multiple collaterals with slow filling of the anterior and posterior tibial arteries at the mid aspect of the lower leg. There was filling down to the ankle via the posterior tibial and anterior tibial arteries. Once completed Doppler signal was noted in it to be multiphasic in the profundus femoris and biphasic in the SFA. The area was then flushed with heparinized saline and the sheath was removed and the access site was closed with 5-0 Prolene suture. Once completed good pulsatile blood flow was noted within the patch on the right as well as the groin on the left. The area was then copiously irrigated and hemostasis was assured with Gelfoam and thrombin. The incision was then closed in a multilayer fashion. Skin was cleansed and dressed with a Prevena VAC. Patient tolerated procedure well had multiphasic signal at the PT on the left and monophasic signal at the PT on the right. Patient will be started on oral anticoagulation's a relative 2.5 mg twice a day to help keep the graft open. If patient still has significant pain after revascularization of his inflow then he will likely need a femoral to distal tibial bypass on the right in the future.
[2021-02-23 12:24] LABS: Glucose,Whole Blood 228 mg/dL (75-99)
[2021-02-23] MEDS ORDERED: diphenhydrAMINE 50 MG/ML 1 ML VIAL IVP ONE (14:11)
[2021-02-23] MEDS: HYDROmorphone 0.5 MG/0.5 ML SYRINGE IVP PRN ×2 (14:11→17:45)
[2021-02-23] MEDS: INSULIN ASPART (NovoLOG) 100 UNIT/ML VIAL SQ SCH ×3 (15:53→21:36)
--- NOTE | 2021-02-23 15:53 | FL ---
Fluoroscopy HISTORY: Peripheral vascular occlusive disease 8 minutes 11 seconds fluoroscopy time supplied to the referring clinician. 6 intraoperative C-arm im ages document the procedure. See dictated report from vascular surgery.
[2021-02-23 16:40] LABS: Glucose,Whole Blood 257 mg/dL (75-99)
[2021-02-23 20:35] LABS: Glucose,Whole Blood 261 mg/dL (75-99)
[2021-02-23] MEDS ORDERED: INSULIN DETEMIR (LEVEMIR) 100 UNIT/ML SYR SQ SCH (21:00)
[2021-02-23] MEDS: FUROSEMIDE 40 MG TAB PO SCH (21:33)
[2021-02-23] MEDS: RIVAROXABAN 2.5 MG TABLET PO SCH (21:33)
--- NOTE | 2021-02-23 23:17 | CONS ---
CONSULTATION REASON FOR CONSULTATION: Advice regarding CHF and other multiple medical issues as requested by Dr. Tolliver. HISTORY OF PRESENT ILLNESS: This 65-year-old gentleman with a past medical history of CHF, diabetes mellitus, hypertension, hyperlipidemia, being followed by Dr. Batlazar in the outpatient setting, underwent open thrombectomy with [id number] artery bypass graft and selective left femoral angiogram and transluminal balloon angioplasty of the left common femoral artery and selective left femoral-femoral tibial angiogram by Dr. Tolliver for occluded [id number] bypass. The patient tolerated the procedure well and the patient is being closely monitored. Patient is still complaining of some pain. Blood pressure is slightly elevated. There is no history of any fever, rigor or chills. No history of chest pain, palpitation, shortness of breath at this time. PAST MEDICAL HISTORY: History of CHF, diabetes mellitus, type 2, hypertension, hyperlipidemia, history of myocardial infarction. MEDICATIONS: Medications include Tylenol p.r.n., Lipitor, Zestril, omeprazole, Toprol, Lantus, NovoLog, Motrin, Amaryl, Lasix, fenofibrate, aspirin, metformin. ALLERGIES: NONE. FAMILY HISTORY: History of cancer in the family. SOCIAL HISTORY: Previous history of smoking. No current smoking or alcohol intake. REVIEW OF SYSTEMS: ENT: No diminished hearing. No diminished vision. CARDIOVASCULAR SYSTEM: No angina, palpitations. RESPIRATORY SYSTEM: No cough, hemoptysis. GI: No nausea, vomiting. : No dysuria or retention. NERVOUS SYSTEM: No numbness, weakness. ALLERGY/IMMUNOLOGY: No asthma, hayfever. MUSCULOSKELETAL: As mentioned earlier. HEMATOLOGY/ONCOLOGY: No history of anemia. ENDOCRINE: Diabetes mellitus. CONSTITUTIONAL: As mentioned earlier. DERMATOLOGY: Negative. RHEUMATOLOGY: Negative. PSYCHIATRY: As mentioned earlier. PHYSICAL EXAMINATION: Alert and oriented x3. Pulse is 75, blood pressure 146/83, respiration 16, temperature 97.9, pulse ox 97% on 2 L. HEENT: Conjunctivae normal. Oral mucosa moist. NECK: No jugular venous distention. No carotid bruit. No lymph node enlargement. CARDIOVASCULAR SYSTEM: S1, S2 muffled. No S3. No S4. RESPIRATORY SYSTEM: Breath sounds diminished at the bases. A few scattered rhonchi. No crackles. ABDOMEN: Soft, non-tender. No mass palpable. LEGS: Status post surgery. NERVOUS SYSTEM: Higher functions as mentioned earlier. Moves all 4 limbs. No focal motor or sensory deficit. LYMPHATICS: No lymph node palpable in neck, axillae or groin. SKIN: No ulcer, rash, bleeding. JOINTS: No active deforming arthropathy. LABS: Accu-Cheks 181, 228, 257. The previous labs: hematology normal. Chemistries: Creatinine 1.72. Magnesium was 1.2. ASSESSMENT: 1. Status post open thrombectomy, femoral-femoral artery bypass graft for occluded femoral-femoral artery bypass graft. 2. Hyponatremia history. 3. Hypertension. 4. History of renal failure with chronic kidney disease, stage 3. 5. History of congestive heart failure. 6. Diabetes mellitus, type 2. 7. Hyperlipidemia. 8. History of myocardial infarction. 9. History of degenerative joint disease. 10.History of peripheral vascular disease. 11.History of AICD. 12.History of cardiac catheterization. 13.History of abdominal aortogram. 14.History of permanent pacemaker. 15.AICD. 16.Remote history of nicotine dependence. 17.Family history of peripheral vascular disease. 18.Obesity with body mass index of 33.7. RECOMMENDATIONS AND DISCUSSION: In this 65-year-old gentleman who presented with multiple medical issues, at this time I recommend to continue current medications, continue with symptomatic treatment. Resume the home medications. Continue with insulins. Monitor blood sugars closely. Accu- Cheks before meals and at bedtime, scale. The patient was started on Xarelto. I would also recommend repeat labs in the morning. The patient may be asked to follow up with Dr. Baltazar closely after discharge. Monitor fluid/electrolyte balance closely. Thank you, Dr. Tolliver, for letting us participate in the care of this patient. MMODL / IJN: [id number] /
[2021-02-24 06:25] LABS: Glucose,Whole Blood 168 mg/dL (75-99)
[2021-02-24 06:35] VITALS: RESP 20
[2021-02-24] MEDS: LACTATED RINGERS 1,000 ML IV SCH (06:44)
[2021-02-24] MEDS: INSULIN ASPART (NovoLOG) 100 UNIT/ML VIAL SQ SCH ×4 (07:01→13:02)
[2021-02-24] MEDS ORDERED: PANTOPRAZOLE 40 MG TABLET PO SCH (07:30)
[2021-02-24] MEDS ORDERED: GLIMEPIRIDE 1 MG TAB PO SCH (07:30)
[2021-02-24] MEDS: RIVAROXABAN 2.5 MG TABLET PO SCH (08:31)
[2021-02-24] MEDS: FUROSEMIDE 40 MG TAB PO SCH (08:31)
[2021-02-24 08:47] VITALS: BP 133/63; PULSE 94; TEMP 98
[2021-02-24] MEDS ORDERED: SUCCINYLCHOLINE CHLORIDE 100 MG/5 ML SYR IV ONE (08:50)
[2021-02-24] MEDS ORDERED: HEPARIN SODIUM,PORCINE 10,000 UNIT/ML 1 ML VIAL ONE (08:50)
[2021-02-24] MEDS ORDERED: ePHEDrine SULFATE/0.9% NACL/PF 50 MG/5 ML SYRINGE IV ONE (08:50)
[2021-02-24] MEDS ORDERED: WATER FOR INJECTION, STERILE 10 ML VIAL IV ONE (08:50)
[2021-02-24] MEDS ORDERED: LIDOCAINE 1% INJ 10MG/ML (20 ML MDV) ONE (08:50)
[2021-02-24] MEDS ORDERED: GLYCOPYRROLATE 0.2 MG/ML 2 ML VIAL ONE (08:50)
[2021-02-24] MEDS ORDERED: NEOSTIGMINE 1 MG/ML 10 ML VIAL ONE (08:50)
[2021-02-24] MEDS ORDERED: fentaNYL (PF) 50 MCG/ML 2 ML AMP ONE (08:50)
[2021-02-24] MEDS ORDERED: PHENYLEPHRINE-0.9% NACL SYG 1,000 MCG/10 ML SYRINGE ONE (08:50)
[2021-02-24] MEDS ORDERED: ROCURONIUM 10 MG/ML (5 ML VIAL) IV ONE (08:50)
[2021-02-24] MEDS ORDERED: PROPOFOL 10 MG/ML 20 ML VIAL IV ONE (08:50)
[2021-02-24] MEDS ORDERED: FENOFIBRATE 160 MG TAB PO SCH (09:00)
[2021-02-24] MEDS ORDERED: CLOPIDOGREL 75 MG TAB PO SCH (09:00)
[2021-02-24] MEDS ORDERED: lisinopriL 20 MG TAB PO SCH (09:00)
[2021-02-24] MEDS ORDERED: METOPROLOL SUCCINATE (ER) 100 MG TAB.ER.24H PO SCH (09:00)
[2021-02-24] MEDS ORDERED: ATORVASTATIN 20 MG TAB PO SCH (09:00)
[2021-02-24 12:08] LABS: Glucose,Whole Blood 223 mg/dL (75-99)
--- NOTE | 2021-02-24 13:48 | P.PN ---
Subjective Progress Note Date: 02/24/21 Principal diagnosis: Postop day #1: Status post thrombectomy/balloon dilation. Patient is evaluated today in postoperative day #1. Indicates that he feels well and is anxious to be dismissed to home. His only need is that of a prescription for Eliquis 2.5 mg Objective - Vital Signs Vital signs: Vital Signs Temp 98.0 F 02/24/21 08:30 Pulse 94 02/24/21 08:30 Resp 20 02/24/21 08:30 BP 133/63 02/24/21 08:30 Pulse Ox 95 02/24/21 08:30 Intake & Output 02/23/21 02/24/21 02/24/21 18:59 06:59 18:59 Intake Total 1441 Output Total 1750 800 300 Balance -309 -800 -300 Weight 103.5 kg 94 kg Intake: IV 1201 Oral 240 Output: Urine 1350 800 300 Stool 0 Estimated Blood Loss 400 Other: Voiding Method Urinal Urinal Urinal # Voids 0 2 # Bowel Movements 0 - Constitutional General appearance: Present: cooperative, no acute distress (Legs are free of edema and are nontender to palpation. Toes are freely movable bilaterally.) - Labs Labs: Abnormal Lab Results - Last 24 Hours (Table) 02/23/21 02/23/21 02/24/21 Range/Units 16:38 20:34 06:23 POC Glucose (mg/dL) 257 H 261 H 168 H (75-99) mg/dL 02/24/21 Range/Units 12:05 POC Glucose (mg/dL) 223 H (75-99) mg/dL Assessment and Plan Assessment: Postop day #1, satisfactory progress Plan: #1: Surgically stable for discharge. Instructions were reviewed with the patient. #2: Patient was given a prescription for ELIQUIS 2.5 mg to be taken on a twice a day basis. #3: Patient is to follow-up with Dr. Tolliver in 1 week in the office. He is to call February 26 for appointment. #4: Ambulate ad however while not able vanna please keep legs elevated. #5: Continue all home meds.
--- NOTE | 2021-02-24 14:25 | PN ---
PROGRESS NOTE DATE OF SERVICE: 02/24/2021 This 65-year-old gentleman who was admitted after open thrombectomy of peripheral vascular disease, is improving significantly. No chest pain. No palpitations. No fever. PHYSICAL EXAMINATION: Alert and oriented x3. The pulse is 94, blood pressure 130/60 respiration 18, temperature 98 degrees, pulse ox 94% on 2 L. HEENT: Conjunctivae normal. Oral mucosa moist. NECK: No jugular venous distention. No lymph node enlargement. CARDIOVASCULAR: S1, S2, muffled. No S3, no S4, RESPIRATORY: Diminished breath sounds at the bases. No rhonchi, no crackles. ABDOMEN: Soft, nontender. LEGS: No edema, no swelling. NERVOUS SYSTEM: No focal motor or sensory deficits. LABS: Accu-Cheks 168, 223. ASSESSMENT: 1. Status post open thrombectomy, femoral-femoral artery bypass graft for occluded femoral-femoral artery bypass graft. 2. Hyponatremia history. 3. Hypertension. 4. History of renal failure with chronic kidney disease stage 3. 5. History of congestive heart failure, ejection fraction unknown. 6. Diabetes mellitus type 2. 7. Hyperlipidemia. 8. History of myocardial infarction. 9. History of degenerative joint disease. 10.History of peripheral vascular disease. 11.History of AICD. 12.History of cardiac catheterization. 13.History abdominal aortogram. 14.History of permanent pacemaker. 15.Remote history of nicotine dependence. 16.Family history of peripheral vascular disease. 17.Obesity with body mass index of 33.7. RECOMMENDATIONS AND DISCUSSION: I recommend to continue current management, continue symptomatic treatment. The patient will be started on home medications on discharge and recommend close follow up with Dr. Baltazar in the outpatient setting. Otherwise, monitor Accu-Cheks a.c. and h.s. closely and follow with Dr. Baltazar. The rest of the recommendations per Vascular Surgery. Thank you Dr. Tolliver. MMODL / IJN: [id number] /
== END 2021-02-24 14:05 | disposition home or self-care (01) | DRG 253 ==
LOC: 2ORMAIN 07:20 → 3SCARD 14:51
PROVIDERS: ADMIT Surgery; ATTEND Surgery
PROC: 047L3ZZ Dilation of Left Femoral Artery, Percutaneous Approach (ICD-10-PCS; 2021-02-23)
PROC: B41G1ZZ Fluoroscopy of Left Lower Extremity Arteries using Low Osmolar Contrast (ICD-10-PCS; 2021-02-23)
PROC: 04CK0ZZ Extirpation of Matter from Right Femoral Artery, Open Approach (ICD-10-PCS; principal; 2021-02-23 09:00)
DX: T82.898A Other specified complication of vascular prosthetic devices, implants and grafts, initial encounter (principal); E87.1 Hypo-osmolality and hyponatremia; I13.0 Hypertensive heart and chronic kidney disease with heart failure and stage 1 through stage 4 chronic kidney disease, or unspecified chronic kidney disease; E11.51 Type 2 diabetes mellitus with diabetic peripheral angiopathy without gangrene; Y83.2 Surgical operation with anastomosis, bypass or graft as the cause of abnormal reaction of the patient, or of later complication, without mention of misadventure at the time of the procedure; Z79.01 Long term (current) use of anticoagulants; E11.22 Type 2 diabetes mellitus with diabetic chronic kidney disease; N18.30 Chronic kidney disease, stage 3 unspecified; I25.2 Old myocardial infarction; I50.9 Heart failure, unspecified; E78.5 Hyperlipidemia, unspecified; Z95.810 Presence of automatic (implantable) cardiac defibrillator; Z87.891 Personal history of nicotine dependence; Z82.49 Family history of ischemic heart disease and other diseases of the circulatory system; Z68.33 Body mass index [BMI] 33.0-33.9, adult; E66.9 Obesity, unspecified; Z80.9 Family history of malignant neoplasm, unspecified
CPT/HCPCS: 86850; 86900; 86901; 93005

== ENCOUNTER 2021-05-17 08:07 | Inpatient (IN) | payer MEDICARE, OTHER ==
[2021-05-17] MEDS ORDERED: ACETAMINOPHEN TAB 500 MG TAB PO STA (08:15)
[2021-05-17] MEDS ORDERED: HYDROmorphone 1 MG/ML 1 ML SYRINGE IVP STA (08:15)
[2021-05-17] MEDS ORDERED: IBUPROFEN 600 MG TAB PO STA (08:15)
[2021-05-17] MEDS ORDERED: SODIUM CHLORIDE 0.9% 500 ML 500 ML IV SCH (08:15)
[2021-05-17] MEDS ORDERED: SODIUM CHLORIDE 0.9% 1,000 ML IV STA (08:27)
--- NOTE | 2021-05-17 08:33 | ED ---
General Adult HPI - General Chief complaint: Extremity Problem,Nontraumatic Stated complaint: bilateral extremity pain Time Seen by Provider: 05/17/21 08:07 Source: patient, EMS, RN notes reviewed, old records reviewed Mode of arrival: EMS - History of Present Illness Initial comments: This is a 65-year-old male who presents emergency Department complaining of bilateral leg pain. Patient states he has been told is popliteal arteries blocked and he needs to have surgery. Patient states the pain is been ongoing for 5 days. Patient states he cannot stand the pain anymore and he has no pain medicines at home. Patient does have a fever the emergency department he does not know why. Patient denies any fever chills or cough that he knows of. Patient denies headache patient denies any neck pain. Patient denies any chest pain difficulty breathing shortness of breath. Patient denies any cough. Patient denies any abdominal pain patient denies nausea vomiting diarrhea. Patient denies any areas of redness rash or lesions. - Related Data Home Medications Medication Instructions Recorded Confirmed Aspirin 325 mg PO DAILY 08/28/15 02/20/21 Furosemide [Lasix] 40 mg PO BID 02/24/17 02/20/21 Omeprazole 20 mg PO QAM 02/24/17 02/20/21 lisinopriL [Zestril] 20 mg PO QAM 02/24/17 02/20/21 Insulin Aspart [NovoLOG] 6 units SQ AC-TID 07/16/19 02/20/21 Insulin Glargine [Lantus] 50 unit SQ HS 07/16/19 02/20/21 Fenofibrate Nanocrystallized 145 mg PO DAILY 01/16/21 02/20/21 [Fenofibrate] Glimepiride [Amaryl] 1 mg PO AC-BRKFST 01/16/21 02/20/21 Ibuprofen [Motrin] 800 mg PO DAILY PRN 01/16/21 02/20/21 Metoprolol Succinate (ER) [Toprol 100 mg PO QAM 01/16/21 02/20/21 XL] Acetaminophen/Diphenhydramine 2 tab PO HS 02/20/21 02/20/21 [Tylenol PM 500-25mg] Atorvastatin Calcium [Lipitor] 20 mg PO DAILY 02/20/21 02/20/21 metFORMIN HCL 1,000 mg PO BID 02/20/21 02/20/21 Previous Rx's Medication Instructions Recorded Clopidogrel [Plavix] 75 mg PO DAILY #30 tab 09/07/15 Apixaban [Eliquis] 2.5 mg PO BID #0 tab 02/24/21 Allergies Allergy/AdvReac Type Severity Reaction Status Date / Time No Known Allergies Allergy Verified 02/23/21 07:55 Review of Systems ROS Statement: Those systems with pertinent positive or pertinent negative responses have been documented in the HPI. ROS Other: All systems not noted in ROS Statement are negative. Past Medical History Past Medical History: Chest Pain / Angina, Heart Failure, Diabetes Mellitus, Hyperlipidemia, Hypertension, Myocardial Infarction ([place]), Osteoarthritis (OA), Vascular Disorder Additional Past Medical History / Comment(s): pvd,brochitis,kidney stone,arthritis bilateral hands fingers and R ankle ,n/t bilateral feet Last Myocardial Infarction Date:: 02/2014 History of Any Multi-Drug Resistant Organisms: None Reported Past Surgical History: Adenoidectomy, AICD, Appendectomy, Heart Catheterization, Orthopedic Surgery, Pacemaker, Tonsillectomy Additional Past Surgical History / Comment(s): Abdominal aortogram with runoff 01-22-21,10/09/15 Redo bilateral femfem crossover graft. Other SX: left leg arterial bypass, pacemaker/defibrillator, sx lt hand, rt foot,cataracts,ABD AORTAGRAM,LEFT ARTERIAL ANGIOGRAM, LEFT ILIAC STENTING 09/05/15, R ankle surgery. Past Anesthesia/Blood Transfusion Reactions: Postoperative Nausea & Vomiting (PONV) Type of Cardiac Device: Permanent Pacemaker, AICD Device Placement Date:: february 2014 Past Psychological History: No Psychological Hx Reported Smoking Status: Former smoker Past Alcohol Use History: None Reported Past Drug Use History: None Reported - Past Family History Mother Family Medical History: Cancer Sister(s) Family Medical History: Cancer General Exam - General Exam Comments Initial Comments: GENERAL: Patient is well-developed and well-nourished. Patient is nontoxic and well- hydrated and is in moderate distress. ENT: Neck is soft and supple. No significant lymphadenopathy is noted. Oropharynx is clear. Moist mucous membranes. Neck has full range of motion without eliciting any pain. EYES: The sclera were anicteric and conjunctiva were pink and moist. Extraocular movements were intact and pupils were equal round and reactive to light. Eyeli ds were unremarkable. PULMONARY: Unlabored respirations. Good breath sounds bilaterally. No audible rales rhonchi or wheezing was noted. CARDIOVASCULAR: There is a regular rate and rhythm without any murmurs gallops or rubs. ABDOMEN: Soft and nontender with normal bowel sounds. SKIN: Skin is clear with no lesions or rashes and otherwise unremarkable. NEUROLOGIC: Patient is alert and oriented x3. Cranial nerves II through XII are grossly intact. Motor and sensory are also intact. Normal speech, volume and content. Symmetrical smile. MUSCULOSKELETAL: Normal extremities with adequate strength and full range of motion. Patient's legs are very painful to touch below the knee. Patient has DP pulses by ultrasound bilaterally patient's cap refill bilaterally is extremely slow about 4 seconds LYMPHATICS: No significant lymphadenopathy is noted PSYCHIATRIC: Normal psychiatric evaluation. Course Vital Signs 05/17/21 05/17/21 08:08 09:49 Temperature 102.7 F H 100.1 F H Pulse Rate 106 H 89 Respiratory 20 22 Rate Blood Pressure 178/86 133/100 O2 Sat by Pulse 96 93 L Oximetry Medical Decision Making - Medical Decision Making EKG shows normal sinus rhythm at 99 bpm DE interval 258 QRS is 96 QT interval 346 QTC is 444. EKG shows no ST segment elevation or depression. I spoke with Dr. baldwin when the patient arrived and he wanted the patient to be admitted and they wouldn't see him in the hospital. No source of infection has been noted however since the patient recently had a graft placed I started the patient on antibiotics at this time. - Lab Data Result diagrams: 05/17/21 08:22 05/17/21 08:22 Lab Results 05/17/21 05/17/21 05/17/21 Range/Units 08:22 08:22 08:22 WBC 10.7 H (3.8-10.6) k/uL RBC 3.69 L (4.30-5.90) m/uL Hgb 10.6 L (13.0-17.5) gm/dL Hct 30.6 L (39.0-53.0) % MCV 82.8 (80.0-100.0) fL MCH 28.8 (25.0-35.0) pg MCHC 34.7 (31.0-37.0) g/dL RDW 13.3 (11.5-15.5) % Plt Count 291 (150-450) k/uL MPV 7.8 Neutrophils % 74 % Lymphocytes % 14 % Monocytes % 6 % Eosinophils % 4 % Basophils % 1 % Neutrophils # 7.9 H (1.3-7.7) k/uL Lymphocytes # 1.5 (1.0-4.8) k/uL Monocytes # 0.7 (0-1.0) k/uL Eosinophils # 0.4 (0-0.7) k/uL Basophils # 0.1 (0-0.2) k/uL PT 10.8 (9.0-12.0) sec INR 1.0 (<1.2) APTT 24.5 (22.0-30.0) sec Sodium (137-145) mmol/L Potassium (3.5-5.1) mmol/L Chloride (98-107) mmol/L Carbon Dioxide (22-30) mmol/L Anion Gap mmol/L BUN (9-20) mg/dL Creatinine (0.66-1.25) mg/dL Est GFR (CKD-EPI)AfAm (>60 ml/min/1.73 sqM) Est GFR (CKD-EPI)NonAf (>60 ml/min/1.73 sqM) Glucose (74-99) mg/dL Plasma Lactic Acid Jc (0.7-2.0) mmol/L Calcium (8.4-10.2) mg/dL Total Bilirubin (0.2-1.3) mg/dL AST (17-59) U/L ALT (4-49) U/L Alkaline Phosphatase (38-126) U/L Creatine Kinase (55-170) U/L Total Protein (6.3-8.2) g/dL Albumin (3.5-5.0) g/dL Urine Color Yellow Urine Appearance Clear (Clear) Urine pH 6.0 (5.0-8.0) Ur Specific [place] 1.017 (1.001-1.035) Urine Protein Trace H (Negative) Urine Glucose (UA) Negative (Negative) Urine Ketones Negative (Negative) Urine Blood Negative (Negative) Urine Nitrite Negative (Negative) Urine Bilirubin Negative (Negative) Urine Urobilinogen <2.0 (<2.0) mg/dL Ur Leukocyte Esterase Negative (Negative) Coronavirus (PCR) (Not Detectd) 05/17/21 05/17/21 05/17/21 Range/Units 08:22 08:22 08:51 WBC (3.8-10.6) k/uL RBC (4.30-5.90) m/uL Hgb (13.0-17.5) gm/dL Hct (39.0-53.0) % MCV (80.0-100.0) fL MCH (25.0-35.0) pg MCHC (31.0-37.0) g/dL RDW (11.5-15.5) % Plt Count (150-450) k/uL MPV Neutrophils % % Lymphocytes % % Monocytes % % Eosinophils % % Basophils % % Neutrophils # (1.3-7.7) k/uL Lymphocytes # (1.0-4.8) k/uL Monocytes # (0-1.0) k/uL Eosinophils # (0-0.7) k/uL Basophils # (0-0.2) k/uL PT (9.0-12.0) sec INR (<1.2) APTT (22.0-30.0) sec Sodium 137 (137-145) mmol/L Potassium 5.2 H (3.5-5.1) mmol/L Chloride 104 (98-107) mmol/L Carbon Dioxide 25 (22-30) mmol/L Anion Gap 8 mmol/L BUN 31 H (9-20) mg/dL Creatinine 1.19 (0.66-1.25) mg/dL Est GFR (CKD-EPI)AfAm 73 (>60 ml/min/1.73 sqM) Est GFR (CKD-EPI)NonAf 63 (>60 ml/min/1.73 sqM) Glucose 144 H (74-99) mg/dL Plasma Lactic Acid Jc 1.2 (0.7-2.0) mmol/L Calcium 6.9 L (8.4-10.2) mg/dL Total Bilirubin 0.6 (0.2-1.3) mg/dL AST 26 (17-59) U/L ALT 12 (4-49) U/L Alkaline Phosphatase 39 (38-126) U/L Creatine Kinase 405 H (55-170) U/L Total Protein 6.4 (6.3-8.2) g/dL Albumin 3.6 (3.5-5.0) g/dL Urine Color Urine Appearance (Clear) Urine pH (5.0-8.0) Ur Specific [place] (1.001-1.035) Urine Protein (Negative) Urine Glucose (UA) (Negative) Urine Ketones (Negative) Urine Blood (Negative) Urine Nitrite (Negative) Urine Bilirubin (Negative) Urine Urobilinogen (<2.0) mg/dL Ur Leukocyte Esterase (Negative) Coronavirus (PCR) Not Detected (Not Detectd) Disposition Clinical Impression: Bilateral leg pain, Febrile illness, Peripheral artery disease Disposition: ADMITTED IP TO THIS HOSP Referrals: Elizabeth Baltazar MD [Primary Care Provider] - 1-2 days Time of Disposition: 10:38
[2021-05-17] MEDS: ONDANSETRON 4 MG/2 ML VIAL IVP STA ×2 (08:47→11:42)
[2021-05-17 08:50] LABS: Albumin 3.6 g/dL (3.5-5.0); Basophils # (A) 0.1 k/uL (0-0.2); Basophils % (A) 1 %; Calcium 6.9 mg/dL (8.4-10.2); Eosinophils # (A) 0.4 k/uL (0-0.7); Eosinophils % (A) 4 %; HCT 30.6 % (39.0-53.0); HGB 10.6 gm/dL (13.0-17.5); Lymphocytes # (A) 1.5 k/uL (1.0-4.8); Lymphocytes % (A) 14 %; MCH 28.8 pg (25.0-35.0); MCHC 34.7 g/dL (31.0-37.0); MCV 82.8 fL (80.0-100.0); Mean Platelet Volume 7.8; Monocytes # (A) 0.7 k/uL (0-1.0); Monocytes % (A) 6 %; Neutrophils # (A) 7.9 k/uL (1.3-7.7); Neutrophils % (A) 74 %; Platelet Count 291 k/uL (150-450); RBC 3.69 m/uL (4.30-5.90); RDW 13.3 % (11.5-15.5); Total Bilirubin 0.6 mg/dL (0.2-1.3); Total Protein 6.4 g/dL (6.3-8.2); WBC 10.7 k/uL (3.8-10.6)
[2021-05-17 08:54] LABS: Potassium 5.2 mmol/L (3.5-5.1)
--- NOTE | 2021-05-17 09:02 | XR ---
EXAMINATION TYPE: XR chest 2V DATE OF EXAM: 05/17/2021 COMPARISON: Chest x-ray 10/05/2015 HISTORY: Fever, lower extremity pain and swelling TECHNIQUE: Frontal and lateral views of the chest are obtained. FINDINGS: Technique is apical lordotic and rotated. There is a generator in left pectoral region, le ad is present in the right ventricle. There is no evident pneumothorax or pleural effusion. Heart siz e likely accentuated by technique. No evident airspace disease. Thoracic spondylosis is present. IMPRESSION: No acute cardiopulmonary process.
[2021-05-17 09:39] LABS: Partial Thromboplastin Time 24.5 sec (22.0-30.0); Prothrombin Time 10.8 sec (9.0-12.0)
[2021-05-17 10:31] LABS: Appearance,Urine Clear (Clear); Bilirubin,Urine Negative (Negative); Blood,Urine Negative (Negative); Color,Urine Yellow; Glucose,Urine (UA) Negative (Negative); Ketones,Urine Negative (Negative); Leukocyte Esterase,Urine Negative (Negative); Nitrite,Urine Negative (Negative); Protein,Urine Trace (Negative); Specific Gravity,Urine 1.017 (1.001-1.035); Urobilinogen,Urine <2.0 mg/dL (<2.0)
[2021-05-17] MEDS ORDERED: PIPERACILLIN-TAZOBACTAM 3.375 GM in SODIUM CHLORIDE 0.9% 100 ML IVPB STA (10:36)
[2021-05-17] MEDS ORDERED: SODIUM CHLORIDE 0.9% 1,000 ML IV ONE (10:45)
[2021-05-17] MEDS ORDERED: HYDROmorphone 0.5 MG/0.5 ML SYRINGE IVP STA (10:51)
--- NOTE | 2021-05-17 13:33 | P.GSCN ---
History of Present Illness Consult date: 05/17/21 Reason for Consult: Bilateral foot pain recent lower extremity fem-fem bypass Requesting physician: Kirsten Rock History of present illness: This is a 65-year-old male with a past medical history of heart failure, myocardial infarction with pacemaker and defibrillator, diabetes mellitus, hyperlipidemia, hypertension, peripheral vascular disease recent into the emergency department today with complaints of increased pain to bilateral feet. Patient states the pain has gotten worse over the last 5 days, who is worse in the right foot but now in the left foot. States he has not been able to get up and walk to the bathroom or to any household activity. He denies any fevers. On presentation he had a temperature of 102.7, last time 98.9. He has significant history of peripheral vascular disease and underwent abdominal aortogram with bilateral lower extremity runoff in January [address] Gandara which showed patent stent in aorta to the left common iliac artery, mild in-stent restenosis involving left external iliac artery, occluded left to right fem-fem bypass, occluded bilateral popliteal. He follows with Dr. Tolliver, 02/23/2021 he underwent open thrombectomy of stem femoral artery bypass graft, selective left femoral angiogram and transluminal balloon angioplasty of left common femoral artery and selective right femoral popliteal, tibial angiogram. April 04 and T[facility] Moreno he underwent bilateral femoral endarterectomy with revision of bypass time replacement bypass graft. He states he is supposed to have either stent or graft to the lower extremities, this has not been scheduled at this point that he knows of. States he went to cardiology office on Friday however saw the nurse practitioner and not Dr. Gandara. He is denying any known fevers at home, shortness of breath, cough, chest pain, abdominal pain, nausea, or vomiting. He denies any pain with urination however states that he did have a previous Crandall catheter after his procedure and since then he has some loss of sensation and is unsure when he has finished voiding. Review of Systems A 14 point review of systems was completed, all pertinent positives and negatives as stated in the HPI. Past Medical History Past Medical History: Chest Pain / Angina, Heart Failure, Diabetes Mellitus, Hyperlipidemia, Hypertension, Myocardial Infarction ([place]), Osteoarthritis (OA), Vascular Disorder Additional Past Medical History / Comment(s): pvd,brochitis,kidney stone,arthritis bilateral hands fingers and R ankle ,n/t bilateral feet Last Myocardial Infarction Date:: 02/2014 History of Any Multi-Drug Resistant Organisms: None Reported Past Surgical History: Adenoidectomy, AICD, Appendectomy, Heart Catheterization, Orthopedic Surgery, Pacemaker, Tonsillectomy Additional Past Surgical History / Comment(s): Abdominal aortogram with runoff 01-22-21,10/09/15 Redo bilateral femfem crossover graft. Other SX: left leg arterial bypass, pacemaker/defibrillator, sx lt hand, rt foot,cataracts,ABD AORTAGRAM,LEFT ARTERIAL ANGIOGRAM, LEFT ILIAC STENTING 09/05/15, R ankle surgery. Past Anesthesia/Blood Transfusion Reactions: Postoperative Nausea & Vomiting (PONV) Type of Cardiac Device: Permanent Pacemaker, AICD Device Placement Date:: february 2014 Past Psychological History: No Psychological Hx Reported Smoking Status: Former smoker Past Alcohol Use History: None Reported Past Drug Use History: None Reported - Past Family History Mother Family Medical History: Cancer Sister(s) Family Medical History: Cancer Medications and Allergies Home Medications Medication Instructions Recorded Confirmed Type Clopidogrel [Plavix] 75 mg PO DAILY #30 tab 09/07/15 05/17/21 Rx Omeprazole 20 mg PO DAILY 02/24/17 05/17/21 History Insulin Aspart [NovoLOG] 6 units SQ AC-TID 07/16/19 05/17/21 History Insulin Glargine [Lantus] 50 unit SQ HS 07/16/19 05/17/21 History Fenofibrate Nanocrystallized 145 mg PO DAILY 01/16/21 05/17/21 History [Fenofibrate] Glimepiride [Amaryl] 1 mg PO AC-BRKFST 01/16/21 05/17/21 History Metoprolol Succinate (ER) [Toprol 100 mg PO QAM 01/16/21 05/17/21 History XL] metFORMIN HCL 1,000 mg PO BID 02/20/21 05/17/21 History Apixaban [Eliquis] 2.5 mg PO BID #0 tab 02/24/21 05/17/21 Rx Atorvastatin Calcium [Lipitor] 80 mg PO DAILY 05/17/21 05/17/21 History Gabapentin [Neurontin] 300 mg PO TID 05/17/21 05/17/21 History Rosuvastatin [Crestor] 20 mg PO DAILY 05/17/21 05/17/21 History Spironolactone [Aldactone] 25 mg PO DAILY 05/17/21 05/17/21 History Tamsulosin HCl [Flomax] 0.4 mg PO DAILY 05/17/21 05/17/21 History lisinopriL [Zestril] 20 mg PO DAILY 05/17/21 05/17/21 History Allergies Allergy/AdvReac Type Severity Reaction Status Date / Time No Known Allergies Allergy Verified 05/17/21 11:05 Surgical - Exam Vital Signs Temp Pulse Resp BP Pulse Ox 102.7 F H 106 H 20 178/86 96 05/17/21 08:08 05/17/21 08:08 05/17/21 08:08 05/17/21 08:08 05/17/21 08:08 General appearance: The patient is alert, oriented, appears in no acute distress. Obese. HET: Head is normocephalic and atraumatic. Neck: Supple without lymphadenopathy. Trachea midline. Heart: S1 S2. Regularly irregular rate and rhythm. Lungs: Clear to auscultation.. Abdomen: Soft, obese, nontender, nondistended with bowel sounds. Extremities: Normal skin color and turgor. Bilateral groins with incisions that are well-healed with no erythema or drainage. Bilateral lower extremity edema, warm to the touch, good capillary refill. Doppler signal with audible patent graft, positive bilateral popliteal, posterior tibialis, and dorsalis pedis Doppler signal. Mild erythema proximal aspect of great toe. Bilateral feet tender to palpation. Neurological: No focal deficits. Alert and oriented 3. Results - Labs 05/17/21 08:22 05/17/21 08:22 Abnormal Lab Results - Last 24 Hours (Table) 05/17/21 05/17/21 05/17/21 Range/Units 08:22 08:22 08:22 WBC 10.7 H (3.8-10.6) k/uL RBC 3.69 L (4.30-5.90) m/uL Hgb 10.6 L (13.0-17.5) gm/dL Hct 30.6 L (39.0-53.0) % Neutrophils # 7.9 H (1.3-7.7) k/uL Potassium 5.2 H (3.5-5.1) mmol/L BUN 31 H (9-20) mg/dL Glucose 144 H (74-99) mg/dL Calcium 6.9 L (8.4-10.2) mg/dL Creatine Kinase 405 H (55-170) U/L Urine Protein Trace H (Negative) Diabetes panel 05/17/21 Range/Units 08:22 Sodium 137 (137-145) mmol/L Potassium 5.2 H (3.5-5.1) mmol/L Chloride 104 (98-107) mmol/L Carbon Dioxide 25 (22-30) mmol/L BUN 31 H (9-20) mg/dL Creatinine 1.19 (0.66-1.25) mg/dL Glucose 144 H (74-99) mg/dL Calcium 6.9 L (8.4-10.2) mg/dL AST 26 (17-59) U/L ALT 12 (4-49) U/L Alkaline Phosphatase 39 (38-126) U/L Total Protein 6.4 (6.3-8.2) g/dL Albumin 3.6 (3.5-5.0) g/dL Calcium panel 05/17/21 Range/Units 08:22 Calcium 6.9 L (8.4-10.2) mg/dL Albumin 3.6 (3.5-5.0) g/dL Pituitary panel 05/17/21 Range/Units 08:22 Sodium 137 (137-145) mmol/L Potassium 5.2 H (3.5-5.1) mmol/L Chloride 104 (98-107) mmol/L Carbon Dioxide 25 (22-30) mmol/L BUN 31 H (9-20) mg/dL Creatinine 1.19 (0.66-1.25) mg/dL Glucose 144 H (74-99) mg/dL Calcium 6.9 L (8.4-10.2) mg/dL Adrenal panel 05/17/21 Range/Units 08:22 Sodium 137 (137-145) mmol/L Potassium 5.2 H (3.5-5.1) mmol/L Chloride 104 (98-107) mmol/L Carbon Dioxide 25 (22-30) mmol/L BUN 31 H (9-20) mg/dL Creatinine 1.19 (0.66-1.25) mg/dL Glucose 144 H (74-99) mg/dL Calcium 6.9 L (8.4-10.2) mg/dL Total Bilirubin 0.6 (0.2-1.3) mg/dL AST 26 (17-59) U/L ALT 12 (4-49) U/L Alkaline Phosphatase 39 (38-126) U/L Total Protein 6.4 (6.3-8.2) g/dL Albumin 3.6 (3.5-5.0) g/dL Assessment and Plan Assessment: 1. Bilateral foot pain 2. Bilateral Popliteal occlusion, chronic 3. Bilateral peripheral arterial disease status post femoral endarterectomy with revision of bypass bypass graft 4. Fever 5. History of CHF, with pacemaker and defibrillator 6. Diabetes mellitus 7. Hypertension 8. Hyperlipidemia Plan: 1. Continue medical management 2. Continue current medications 3. There is no indication for any acute vascular surgical intervention, patient is to follow-up with Dr. Tolliver for planned surgical intervention for chronic popliteal occlusive disease. Fever unlikely related to graft. 4. Increase gabpentin to 600mg 3 times a day Thank you for this consultation allowing us take part in the plan of care of the patient during his hospital stay The impression and plan of care has been dictated as directed. Dr. Crandall I performed a history and examination of this patient, discussed the same with the dictator. I agree with the dictator's note ,documented as a scribe. Any additional findings or plans will be noted.
--- NOTE | 2021-05-17 14:13 | P.CRDCN ---
History of Present Illness History of present illness: HISTORY OF PRESENTING ILLNESS This is a pleasant 65-year-old male past medical history significant for with nonischemic cardiomyopathy status post AICD, hypertension, dyslipidemia, peripheral vascular disease, type 2 diabetes, former nicotine dependence. He follows in the office with Dr. Gandara. We have been asked to see in consultation for peripheral artery disease. Patient is seen and examined at bedside, no acute distress. Patient presents emergency department with increased pain to bilateral feet. He states that his left leg is worse than his right. He states pain getting worse over the past 5 days. He states he has not been able to get up and walk at home. Arrival to the floor from the emergency department patient is unable to walk to the bed. 01/2021 Patient underwent abdominal aortogram with bilateral lower extremity runoff by Dr. Gandara which showed patent stent in aorta to the left common iliac artery, mild in-stent restenosis involving left external iliac artery, occluded left to right fem-fem bypass, occluded bilateral popliteal. He also follows with Dr. Tolliver. On 02/23/2021 he underwent open thrombectomy of stem femoral artery bypass graft, selective left femoral angiogram and transluminal balloon angioplasty of left common femoral artery and selective right femoral popliteal, tibial angiogram. In addition on April 0410/2021 at [facility] patient underwent redo bilateral femoral endarterectomy with revision bypass. Patient recently saw Dr. Gandara in the office at 05/15/2021. The plan was for the patient's films to be reviewed for possible intervention on the right lower extremity. Patient's current home cardiac medications include aspirin 325 mg daily, Lasix 40 mg twice a day, lisinopril 20 mg daily, Plavix 75 mg daily, rosuvastatin 20 mg daily, Toprol-XL 100 mg daily, Xarelto 2.5 mg BID. These medications are different then the patient's home list in the computer. DIAGNOSTICS EKG reveals sinus rhythm, heart rate 99, no acute STT wave abnormalities Chest xray no active cardiopulmonary process. Laboratory reviewed, WBC 10.7, hemoglobin 10.6, platelets 291, sodium 137, potassium 5.2, BUN 31, serum creatinine 1.1, creatine kinase 45, COVID-19 negative. Most recent echocardiogram 07/2018 with an EF 50%, mild pulmonary hypertension, mild mitral regurgitation, moderate LVH, mild tricuspid regurgitation Cardiac catheterization 02/2014- normal coronary arteries REVIEW OF SYSTEMS At the time of my exam: CONSTITUTIONAL: Denies fever or chills. CARDIOVASCULAR: Denies chest pain, shortness of breath, orthopnea, PND or palpitations. RESPIRATORY: Denies cough. GASTROINTESTINAL: Denies abdominal pain, diarrhea, constipation, nausea or vomiting. MUSCULOSKELETAL: Bilateral leg pain. NEUROLOGIC: Denies numbness, tingling, headacbe or weakness. ENDOCRINE: Denies fatigue, weight change, polydipsia or polyurina. GENITOURINARY: Denies burning, hematuria or urgency with micturation. HEMATOLOGIC: Denies history of anemia or bleeding. PHYSICAL EXAMINATION Blood pressure 143/82 heart rate 90 afebrile and maintaining oxygen saturation 97% on room air CONSTITUTIONAL: No apparent distress. HEENT: Head is normocephalic. Pupils are equal, round. Sclerae anicteric. Mucous membranes of the mouth are moist. No JVD. No carotid bruit. CHEST EXAMINATION: Lungs are clear to auscultation. No chest wall tenderness is noted on palpation or with deep breathing. HEART EXAMINATION: Regular rate and rhythm. S1, S2 heard. No murmurs, gallops or rub. ABDOMEN: Soft, nontender. Positive bowel sounds. EXTREMITIES: no lower extremity edema and Bilateral leg pain, Left is greater than right NEUROLOGIC EXAMINATION: Patient is awake, alert and oriented x3. ASSESSMENT Bilateral lower extremity pain Bilateral peripheral artery disease s/p femoral endarterectomy with revision of bypass graft Type 2 diabetes Hypertension Hyperlipidemia History of non-ischemic cardiomyopathy PLAN Recommend continuing home cardiac medications Vascular has been consulted No further cardiac workup at this time. Further recommendations based on clinical course Nurse Practitioner note has been reviewed, I agree with a documented findings and plan of care. Patient was seen and examined. Past Medical History Past Medical History: Chest Pain / Angina, Heart Failure, Diabetes Mellitus, Hyperlipidemia, Hypertension, Myocardial Infarction ([place]), Osteoarthritis (OA), Vascular Disorder Additional Past Medical History / Comment(s): pvd,brochitis,kidney stone,arthritis bilateral hands fingers and R ankle ,n/t bilateral feet Last Myocardial Infarction Date:: 02/2014 History of Any Multi-Drug Resistant Organisms: None Reported Past Surgical History: Adenoidectomy, AICD, Appendectomy, Heart Catheterization, Orthopedic Surgery, Pacemaker, Tonsillectomy Additional Past Surgical History / Comment(s): Abdominal aortogram with runoff 3-1-21,10/09/15 Redo bilateral femfem crossover graft. Other SX: left leg arterial bypass, pacemaker/defibrillator, sx lt hand, rt foot,cataracts,ABD AORTAGRAM,LEFT ARTERIAL ANGIOGRAM, LEFT ILIAC STENTING 09/05/15, R ankle surgery. Past Anesthesia/Blood Transfusion Reactions: Postoperative Nausea & Vomiting (PONV) Type of Cardiac Device: Permanent Pacemaker, AICD Device Placement Date:: february 2014 Past Psychological History: No Psychological Hx Reported Smoking Status: Former smoker Past Alcohol Use History: None Reported Past Drug Use History: None Reported - Past Family History Mother Family Medical History: Cancer Sister(s) Family Medical History: Cancer Medications and Allergies Home Medications Medication Instructions Recorded Confirmed Type Clopidogrel [Plavix] 75 mg PO DAILY #30 tab 09/07/15 05/17/21 Rx Omeprazole 20 mg PO DAILY 02/24/17 05/17/21 History Insulin Aspart [NovoLOG] 6 units SQ AC-TID 07/16/19 05/17/21 History Insulin Glargine [Lantus] 50 unit SQ HS 07/16/19 05/17/21 History Fenofibrate Nanocrystallized 145 mg PO DAILY 01/16/21 05/17/21 History [Fenofibrate] Glimepiride [Amaryl] 1 mg PO AC-BRKFST 01/16/21 05/17/21 History Metoprolol Succinate (ER) [Toprol 100 mg PO QAM 01/16/21 05/17/21 History XL] metFORMIN HCL 1,000 mg PO BID 02/20/21 05/17/21 History Apixaban [Eliquis] 2.5 mg PO BID #0 tab 02/24/21 05/17/21 Rx Atorvastatin Calcium [Lipitor] 80 mg PO DAILY 05/17/21 05/17/21 History Gabapentin [Neurontin] 300 mg PO TID 05/17/21 05/17/21 History Rosuvastatin [Crestor] 20 mg PO DAILY 05/17/21 05/17/21 History Spironolactone [Aldactone] 25 mg PO DAILY 05/17/21 05/17/21 History Tamsulosin HCl [Flomax] 0.4 mg PO DAILY 05/17/21 05/17/21 History lisinopriL [Zestril] 20 mg PO DAILY 05/17/21 05/17/21 History Allergies Allergy/AdvReac Type Severity Reaction Status Date / Time No Known Allergies Allergy Verified 05/17/21 11:05 Physical Exam Vitals: Vital Signs Temp Pulse Resp BP Pulse Ox 05/17/21 11:48 98.8 F 90 16 143/82 96 05/17/21 09:49 100.1 F H 89 22 133/100 93 L 05/17/21 08:08 102.7 F H 106 H 20 178/86 96 Intake and Output 05/16/21 05/17/21 05/17/21 22:59 06:59 14:59 Other: Weight 103.419 kg Results 05/17/21 08:22 05/17/21 08:22 Cardiac Enzymes 05/17/21 Range/Units 08:22 AST 26 (17-59) U/L Coagulation 05/17/21 Range/Units 08:22 PT 10.8 (9.0-12.0) sec APTT 24.5 (22.0-30.0) sec CBC 05/17/21 Range/Units 08:22 WBC 10.7 H (3.8-10.6) k/uL RBC 3.69 L (4.30-5.90) m/uL Hgb 10.6 L (13.0-17.5) gm/dL Hct 30.6 L (39.0-53.0) % Plt Count 291 (150-450) k/uL Comprehensive Metabolic Panel 05/17/21 Range/Units 08:22 Sodium 137 (137-145) mmol/L Potassium 5.2 H (3.5-5.1) mmol/L Chloride 104 (98-107) mmol/L Carbon Dioxide 25 (22-30) mmol/L BUN 31 H (9-20) mg/dL Creatinine 1.19 (0.66-1.25) mg/dL Glucose 144 H (74-99) mg/dL Calcium 6.9 L (8.4-10.2) mg/dL AST 26 (17-59) U/L ALT 12 (4-49) U/L Alkaline Phosphatase 39 (38-126) U/L Total Protein 6.4 (6.3-8.2) g/dL Albumin 3.6 (3.5-5.0) g/dL Current Medications Generic Name Dose Route Start Last Admin Trade Name Freq PRN Reason Stop Dose Admin Piperacillin Sod/Tazobactam 100 mls @ 25 mls/hr 05/17/21 19:00 Sod 3.375 gm/ Sodium Chloride IVPB Q8H REDD Sodium Chloride 1,000 mls @ 75 mls/hr 05/17/21 10:45 05/17/21 11:38 Saline 0.9% IV 05/18/21 00:04 75 mls/hr .[id number] ONE Administration Intake and Output 05/16/21 05/17/21 05/17/21 22:59 06:59 14:59 Other: Weight 103.419 kg Patient Weight 05/18/21 06:59 Weight 103.419 kg 05/17/21 08:22 05/17/21 08:22
--- NOTE | 2021-05-17 14:44 | P.HPIM ---
History of Present Illness Patient is a 65-year-old male came in with compensative for severe pain in bilateral lower expertise patient does have extensive history of metastatic disease and the patient underwent a recent intervention since then patient was having pain in bilateral lower extremity his patient presently has completely occluded bilateral popliteal arteries patient has worse pain in the right foot than the left foot. Patient is unable to bear. Patient has severe tenderness upon touching in the. Pain has been progressively was because of which patient came to ER. In ER patient is found to have fever of 103 source of infection is not clear because of which patient was admitted for further workup patient had a chest x-ray which was negative urine analysis did not show any significant abnormality Covid 19 testing was negative. There was a concern that the his recent surgical graft is infected. Patient has multiple procedures in the past including stent prior to the left common iliac artery with mid in-stent restenosis involving the left external iliac artery occluded left to right fem- fem bypass for which patient underwent open thrombectomy in month of February and transluminal balloon angioplasty of the left common femoral artery. Patient at that time was found to have completely occluded pop [place] vessels which were not addressed. Surgical site showed complete healing without any evidence of infection. Patient denied any cough dysuria denied any nausea vomiting diarrhea. Patient denied any body aches. was started on empiric Zosyn was subsequently admitted. REVIEW OF SYSTEMS: CONSTITUTIONAL:no malaise, no fatigue. HEENT: No recent visual problems or hearing problems. Denied any sore throat. CARDIOVASCULAR: No chest pain, orthopnea, PND, no palpitations, no syncope. PULMONARY: No shortness of breath, no cough, no hemoptysis. GASTROINTESTINAL: No diarrhea, no nausea, no vomiting, no abdominal pain. NEUROLOGICAL: No headaches, no weakness, no numbness. HEMATOLOGICAL: Denies any bleeding or petechiae. GENITOURINARY: Denies any burning micturition, frequency, or urgency. MUSCULOSKELETAL/RHEUMATOLOGICAL: Denies any joint pain, swelling, or any muscle pain. ENDOCRINE: Denies any polyuria or polydipsia. The rest of the 14-point review of systems is negative. PHYSICAL EXAMINATION: GENERAL: The patient is alert and oriented x3, not in any acute distress. Well developed, well nourished. HEENT: Pupils are round and equally reacting to light. EOMI. No scleral icterus. No conjunctival pallor. Normocephalic, atraumatic. No pharyngeal erythema. No thyromegaly. CARDIOVASCULAR: S1 and S2 present. No murmurs, rubs, or gallops. PULMONARY: Chest is clear to auscultation, no wheezing or crackles. ABDOMEN: Soft, nontender, nondistended, normoactive bowel sounds. No palpable organomegaly. MUSCULOSKELETAL: No joint swelling or deformity. EXTREMITIES: Show and had mild cyanosis of bilateral lower extremities does have tenderness severe pain with any slightest movement of both extremities, patient does have mildly palpable pulses of bilateral popliteal posterior tibial dorsa lis pedis. Both extremities are tender to touch NEUROLOGICAL: Gross neurological examination did not reveal any focal deficits. SKIN: As mentioned above Assessment and plan -Fever: Etiology is not clear patient is on empiric Zosyn which will be continued infectious disease will be consulted concern is the recent crafter for progressive disease may be infected but the possibility of which is low I'll consult infectious disease continue the antibiotics for now. -Mildly elevated potassium of hypokalemia secondary to hemolysis will continue with SARA inhibitor, patient will be a low potassium diet and if her potassium remains high tomorrow consider discontinuation of SARA inhibitor at that time. -Bilateral lower extremity pain: Probably secondary to peripheral vascular/arterial disease asked her surgery and interventional radiologists were consulted. Patient is on Eliquis for now will hold off on Eliquis for any possible intervention patient will be started on Lovenox for DVT prophylaxis -History of congestive heart failure patient has problem now normal ejection fraction patient appeared to have had ischemic cardiomyopathy and subsequent recovery of myocardium with normal ejection fraction now. -Type 2 diabetes mellitus -Hypertension -Hyperlipidemia Past Medical History Past Medical History: Chest Pain / Angina, Heart Failure, Diabetes Mellitus, Hyperlipidemia, Hypertension, Myocardial Infarction (ME), Osteoarthritis (OA), Vascular Disorder Additional Past Medical History / Comment(s): pvd,brochitis,kidney sto ne,arthritis bilateral hands fingers and R ankle ,n/t bilateral feet Last Myocardial Infarction Date:: 02/2014 History of Any Multi-Drug Resistant Organisms: None Reported Past Surgical History: Adenoidectomy, AICD, Appendectomy, Heart Catheterization, Orthopedic Surgery, Pacemaker, Tonsillectomy Additional Past Surgical History / Comment(s): Abdominal aortogram with runoff 01-22-21,10/09/15 Redo bilateral femfem crossover graft. Other SX: left leg arterial bypass, pacemaker/defibrillator, sx lt hand, rt foot,cataracts,ABD AORTAGRAM,LEFT ARTERIAL ANGIOGRAM, LEFT ILIAC STENTING 09/05/15, R ankle surgery. Past Anesthesia/Blood Transfusion Reactions: Postoperative Nausea & Vomiting (PONV) Type of Cardiac Device: Permanent Pacemaker, AICD Device Placement Date:: february 2014 Smoking Status: Former smoker - Past Family History Mother Family Medical History: Cancer Sister(s) Family Medical History: Cancer Medications and Allergies Home Medications Medication Instructions Recorded Confirmed Type Clopidogrel [Plavix] 75 mg PO DAILY #30 tab 09/07/15 05/17/21 Rx Omeprazole 20 mg PO DAILY 02/24/17 05/17/21 History Insulin Aspart [NovoLOG] 6 units SQ AC-TID 07/16/19 05/17/21 History Insulin Glargine [Lantus] 50 unit SQ HS 07/16/19 05/17/21 History Fenofibrate Nanocrystallized 145 mg PO DAILY 01/16/21 05/17/21 History [Fenofibrate] Glimepiride [Amaryl] 1 mg PO AC-BRKFST 01/16/21 05/17/21 History Metoprolol Succinate (ER) [Toprol 100 mg PO QAM 01/16/21 05/17/21 History XL] metFORMIN HCL 1,000 mg PO BID 02/20/21 05/17/21 History Apixaban [Eliquis] 2.5 mg PO BID #0 tab 02/24/21 05/17/21 Rx Atorvastatin Calcium [Lipitor] 80 mg PO DAILY 05/17/21 05/17/21 History Gabapentin [Neurontin] 300 mg PO TID 05/17/21 05/17/21 History Rosuvastatin [Crestor] 20 mg PO DAILY 05/17/21 05/17/21 History Spironolactone [Aldactone] 25 mg PO DAILY 05/17/21 05/17/21 History Tamsulosin HCl [Flomax] 0.4 mg PO DAILY 05/17/21 05/17/21 History lisinopriL [Zestril] 20 mg PO DAILY 05/17/21 05/17/21 History Allergies Allergy/AdvReac Type Severity Reaction Status Date / Time No Known Allergies Allergy Verified 05/17/21 11:05 Physical Exam Vitals: Vital Signs Temp Pulse Pulse Resp BP BP Pulse Ox 05/17/21 13:24 74 16 158/74 97 05/17/21 11:48 98.8 F 90 16 143/82 96 05/17/21 09:49 100.1 F H 89 22 133/100 93 L 05/17/21 08:08 102.7 F H 106 H 20 178/86 96 Intake and Output 05/16/21 05/17/21 05/17/21 22:59 06:59 14:59 Other: Weight 103.419 kg Results CBC & Chem 7: 05/17/21 08:22 05/17/21 08:22 Labs: Abnormal Lab Results - Last 24 Hours (Table) 05/17/21 05/17/21 05/17/21 Range/Units 08:22 08:22 08:22 WBC 10.7 H (3.8-10.6) k/uL RBC 3.69 L (4.30-5.90) m/uL Hgb 10.6 L (13.0-17.5) gm/dL Hct 30.6 L (39.0-53.0) % Neutrophils # 7.9 H (1.3-7.7) k/uL Potassium 5.2 H (3.5-5.1) mmol/L BUN 31 H (9-20) mg/dL Glucose 144 H (74-99) mg/dL Calcium 6.9 L (8.4-10.2) mg/dL Creatine Kinase 405 H (55-170) U/L Urine Protein Trace H (Negative)
[2021-05-17] MEDS ORDERED: GABAPENTIN 300 MG CAP PO SCH (16:00)
[2021-05-17 16:56] LABS: Glucose,Whole Blood 164 mg/dL (75-99)
[2021-05-17] MEDS: GABAPENTIN 300 MG CAP PO SCH ×2 (17:02→21:09)
[2021-05-17] MEDS: INSULIN ASPART (NovoLOG) 100 UNIT/ML VIAL SQ SCH (17:05)
[2021-05-17] MEDS: PIPERACILLIN-TAZOBACTAM 3.375 GM in SODIUM CHLORIDE 0.9% 100 ML IVPB SCH (17:06)
[2021-05-17] MEDS ORDERED: MORPHINE SULFATE 4 MG/ML SYRINGE IVP PRN (18:43)
[2021-05-17] MEDS: INSULIN DETEMIR (LEVEMIR) 100 UNIT/ML SYR SQ SCH (21:09)
[2021-05-17 21:15] LABS: Glucose,Whole Blood 101 mg/dL (75-99)
[2021-05-17] MEDS: HYDROmorphone 0.5 MG/0.5 ML SYRINGE IVP PRN (23:05)
--- NOTE | 2021-05-18 01:05 | CONS ---
CONSULTATION DATE OF SERVICE: 05/17/2021 REASON FOR CONSULTATION: Fever. HISTORY OF PRESENT ILLNESS: The patient is a 65-year-old male with a past medical history significant for PAD in this patient who presented to the hospital this morning for evaluation of bilateral leg pain. The patient's pain has been getting worse for the last 5 days. He denies any history of any trauma. Denies any swelling or redness to the lower extremity. The patient described the pain to be more of a dull ache at times sharp, intensity almost 7 to 8/10 and worse with walking or exertion. The patient on presentation to the hospital was noticed to be febrile with temperature of 102 degrees Fahrenheit. However, the patient was not aware of any fever before presentation to the hospital. Denies having rigors or chills. No headache. No URI symptoms. No chest pain. No shortness of breath or cough. No nausea, no vomiting. No abdominal pain. No diarrhea. No burning or frequency of urine. On presentation to the hospital, the patient did have a fever of 102.7 degrees Fahrenheit. The patient was not tachycardic, not hypoxic. The patient did have a white count of 10.7 with left shift. No lymphopenia. His creatinine was 1.19. Liver enzymes are normal. Urine negative. Chest x-ray negative. Irene PCR was negative. The patient did have COVID vaccination 2nd dose was about a month ago. The patient was admitted to the hospital for workup for his lower extremity pain likely due to his PAD. Infectious Disease was consulted because of his fever and no clear focus. REVIEW OF SYSTEMS: Positive points have been mentioned in HPI. Rest of systems are negative. PAST MEDICAL HISTORY: History of angina, heart failure, diabetes mellitus, hyperlipidemia, hypertension, [place], bronchitis, kidney stone. PAST SURGICAL HISTORY: Adenoidectomy, AICD placement, appendectomy, heart catheterization, tonsillectomy, abdominal aortogram with runoff. SOCIAL HISTORY: Remote history of smoking. No drinking or drug use. FAMILY HISTORY: Mother and sister with a history of cancer unknown type. ALLERGIES: No known drug allergies. MEDICATIONS: The patient is currently on Lipitor, Plavix, Lovenox, Neurontin, Dilaudid, NovoLog, Levemir, Zestril, Toprol-XL, Protonix, Zosyn, Flomax. PHYSICAL EXAMINATION: Blood pressure 173/71 with a pulse of 84, temperature of 98.6. He is 95% on room air. GENERAL description is an elderly male lying in bed in no distress. No tachypnea or accessory muscles of respiration use. HEENT examination is slight pallor. No scleral icterus. Oral mucous membranes dry. NECK: Trachea central. No thyromegaly. LUNGS unlabored breathing. Clear to auscultation with no wheeze or crackles. HEART S1, S2. Regular rate and rhythm. ABDOMEN: Soft, no tenderness. No guarding. No rigidity. EXTREMITIES: No edema of the feet. SKIN: No rash or mass palpable. NEUROLOGICAL: Patient is awake, alert, oriented x3. Mood and affect normal. LABS: Hemoglobin is 10.3, white count 10.7, BUN of 31, creatinine 1.19 and electrolytes pressure was slightly high. Liver enzymes normal. Urine is negative. Chest x-ray negative. DIAGNOSTIC IMPRESSION AND PLAN: Patient admitted to the hospital with bilateral lower extremity pain in this patient who did have PAD. However, there was no evidence of any cellulitis. The patient now with fever with no obvious focus. As the patient chest x-ray report was negative, urine was negative, no evidence of any cellulitis. Abdomen soft on clinical examination. PLAN: 1. We will check his inflammatory markers. 2. CT of abdomen and pelvis with contrast. 3. Continue with empiric Zosyn at this point. 4. We will follow on his clinical condition and further adjust medication if needed. Thank you for this consultation. We will follow this patient along with you. MMODL / IJN: [id number] /
[2021-05-18] MEDS: HYDROmorphone 0.5 MG/0.5 ML SYRINGE IVP PRN ×7 (02:52→23:39)
[2021-05-18] MEDS: PIPERACILLIN-TAZOBACTAM 3.375 GM in SODIUM CHLORIDE 0.9% 100 ML IVPB SCH ×2 (03:09→12:50)
[2021-05-18 06:37] LABS: Glucose,Whole Blood 101 mg/dL (75-99)
[2021-05-18 07:36] LABS: Basophils % (A) 0 %; Eosinophils # (A) 0.5 k/uL (0-0.7); Eosinophils % (A) 5 %; HCT 29.8 % (39.0-53.0); HGB 10.1 gm/dL (13.0-17.5); Lymphocytes # (A) 1.9 k/uL (1.0-4.8); Lymphocytes % (A) 22 %; MCH 28.4 pg (25.0-35.0); MCHC 33.8 g/dL (31.0-37.0); MCV 83.9 fL (80.0-100.0); Mean Platelet Volume 7.7; Monocytes # (A) 0.6 k/uL (0-1.0); Monocytes % (A) 7 %; Neutrophils # (A) 5.4 k/uL (1.3-7.7); Neutrophils % (A) 64 %; Platelet Count 299 k/uL (150-450); RBC 3.55 m/uL (4.30-5.90); RDW 13.4 % (11.5-15.5); WBC 8.5 k/uL (3.8-10.6)
[2021-05-18 07:56] LABS: Albumin 3.5 g/dL (3.5-5.0); Calcium 7.4 mg/dL (8.4-10.2); Total Bilirubin 0.4 mg/dL (0.2-1.3); Total Protein 6.2 g/dL (6.3-8.2)
[2021-05-18] MEDS: GABAPENTIN 300 MG CAP PO SCH ×3 (08:23→20:08)
[2021-05-18] MEDS: METOPROLOL SUCCINATE (ER) 100 MG TAB.ER.24H PO SCH (08:23)
[2021-05-18] MEDS: TAMSULOSIN 0.4 MG CAP.ER.24H PO SCH (08:23)
[2021-05-18] MEDS: PANTOPRAZOLE 40 MG TABLET PO SCH (08:23)
[2021-05-18] MEDS: FENOFIBRATE 160 MG TAB PO SCH (08:24)
[2021-05-18] MEDS: INSULIN ASPART (NovoLOG) 100 UNIT/ML VIAL SQ SCH ×3 (08:24→16:48)
[2021-05-18] MEDS: ATORVASTATIN 40 MG TAB PO SCH (08:24)
[2021-05-18] MEDS: lisinopriL 20 MG TAB PO SCH (08:24)
[2021-05-18] MEDS: CLOPIDOGREL 75 MG TAB PO SCH (08:24)
[2021-05-18] MEDS: ENOXAPARIN 40 MG/0.4 ML SYRINGE SQ SCH (08:24)
[2021-05-18] MEDS: IOPAMIDOL CONTRAST (ORAL USE) VIAL PO PRN ×2 (08:27→10:13)
[2021-05-18] MEDS ORDERED: SPIRONOLACTONE 25 MG TAB PO SCH (09:00)
[2021-05-18] MEDS ORDERED: ATORVASTATIN 80 MG TAB PO SCH (09:00)
--- NOTE | 2021-05-18 10:24 | P.PN ---
Subjective Progress Note Date: 05/18/21 Principal diagnosis: Bilateral feet pain, peripheral arterial disease Patient seen and examined lying in bed. States he still has pain to bilateral feet. He is taking IV medication every 3-4 hours. No further fevers through the night. He denies any abdominal pain, nausea, or vomiting. Denies any chest pain or shortness of breath. Patient has been taken down to CT for a CAT scan of the abdomen and pelvis. Infectious disease on consult. Objective - Vital Signs Vital signs: Vital Signs Temp 98.8 F 05/18/21 08:02 Pulse 104 H 05/18/21 08:02 Resp 20 05/18/21 08:02 BP 139/79 05/18/21 08:02 Pulse Ox 94 L 05/18/21 08:02 Intake & Output 05/17/21 05/18/21 05/18/21 18:59 06:59 18:59 Intake Total 480 475 420 Output Total 400 275 Balance 80 475 145 Weight 103.419 kg 83 kg Intake: Intake, IV Titration 475 Amount Piperacillin-Tazobactam 3 100 .375 gm In Sodium Chloride 0.9% 100 ml @ 25 mls/hr IVPB Q8H [facility] Rx#: [id number] Sodium Chloride 0.9% 1, 375 000 ml @ 75 mls/hr IV . [id number] Rx#:[id number] Oral 480 420 Output: Urine 400 275 Other: Voiding Method Urinal Urinal - Exam General appearance: The patient is alert, oriented, appears in no acute distress. Obese. HET: Head is normocephalic and atraumatic. Neck: Supple without lymphadenopathy. Trachea midline. Heart: S1 S2. Regularly irregular rate and rhythm. Lungs: Clear to auscultation.. Abdomen: Soft, obese, nontender, nondistended with bowel sounds. Extremities: Normal skin color and turgor. Bilateral groins with incisions that are well-healed with no erythema or drainage. Bilateral lower extremity edema, warm to the touch, good capillary refill. Doppler signal with audible patent graft, positive bilateral popliteal, posterior tibialis, and dorsalis pedis Doppler signal. Mild erythema proximal aspect of great toe. Bilateral feet tender to palpation. Neurological: No focal deficits. Alert and oriented 3. - Labs CBC & Chem 7: 05/18/21 06:53 05/18/21 06:53 Labs: Abnormal Lab Results - Last 24 Hours (Table) 05/17/21 05/17/21 05/17/21 Range/Units 08:22 16:50 21:01 RBC (4.30-5.90) m/uL Hgb (13.0-17.5) gm/dL Hct (39.0-53.0) % POC Glucose (mg/dL) 164 H 101 H (75-99) mg/dL Calcium (8.4-10.2) mg/dL C-Reactive Protein (<1.0) mg/dL Total Protein (6.3-8.2) g/dL Urine Protein Trace H (Negative) 05/18/21 05/18/21 05/18/21 Range/Units 06:35 06:53 06:53 RBC 3.55 L (4.30-5.90) m/uL Hgb 10.1 L (13.0-17.5) gm/dL Hct 29.8 L (39.0-53.0) % POC Glucose (mg/dL) 101 H (75-99) mg/dL Calcium 7.4 L (8.4-10.2) mg/dL C-Reactive Protein 26.0 H (<1.0) mg/dL Total Protein 6.2 L (6.3-8.2) g/dL Urine Protein (Negative) Assessment and Plan Assessment: 1. Bilateral foot pain 2. Bilateral Popliteal occlusion, chronic 3. Bilateral peripheral arterial disease status post femoral endarterectomy with revision of bypass bypass graft 4. Fever 5. History of CHF, with pacemaker and defibrillator 6. Diabetes mellitus 7. Hypertension 8. Hyperlipidemia Plan: 1. Continue medical management 2. Continue current medications 3. There is no indication for any acute vascular surgical intervention, patient is to follow-up with Dr. Tolliver for planned surgical intervention for chronic popliteal occlusive disease. Fever unlikely related to graft. 4. Increase gabpentin to 600mg 3 times a day 5. Await CT abdomen and pelvis results 6. Infectious diseases on consult Thank you for this consultation allowing us take part in the plan of care of the patient during his hospital stay The impression and plan of care has been dictated as directed. Dr. Crandall I performed a history and examination of this patient, discussed the same with the dictator. I agree with the dictator's note ,documented as a scribe. Any additional findings or plans will be noted.
[2021-05-18 11:55] LABS: Glucose,Whole Blood 109 mg/dL (75-99)
--- NOTE | 2021-05-18 12:07 | CT ---
EXAMINATION TYPE: CT abdomen pelvis w con DATE OF EXAM: 05/18/2021 COMPARISON: 08/16/2016 INDICATION: Fever DLP: 1781.5 mGycm, Automated exposure control for dose reduction was used. CONTRAST: 100 mL of Isovue 300. Study performed with Oral Contrast TECHNIQUE: Axial images were obtained from above the diaphragm to the pubic rami in the axial plane a t 5 mm thick sections. Reconstructed images are reviewed on the computer in the coronal plane. FINDINGS: Limited CT sections are obtained the lung bases. The lung bases are clear. CT ABDOMEN: Small amount reflux into the distal esophagus is evident. Liver: There is mild fatty infiltration to the liver. Spleen: Normal Pancreas: Normal Adrenal glands: Small right angiomyolipoma appears stable. Left adrenal gland is normal. Gallbladder: Normal Kidneys: No masses are evident. No hydronephrosis is present. No cysts are present. Delayed images were obtained through the kidneys, which remain unremarkable. Aorta: Vascular calcification is within the aorta. Aortic stent is present extending into the left i liac artery. Inferior vena cava: Normal. CT PELVIS: Femoral bypass grafts are evident. The anterior femorofemoral bypass appears to have contr ast. A slightly more posterior bypass graft appears occluded. Right stented iliac vessel appears occl uded. Loops of bowel within the abdomen and pelvis are normal. Diverticular changes are noted. There are loops of bowel which are incompletely distended or lack oral contrast limiting their evaluation. Appendix: Not visualized. No dilated tubular structure or inflammatory changes evident. Urinary bladder: Normal. Genitourinary structures: Prostate is prominent Osseous structures: No suspicious lytic or sclerotic lesions. Some degenerative changes are through t he lumbar spine. IMPRESSIONS: 1. Mild fatty infiltration liver. 2. Bypass grafts through the anterior pelvis, more posterior graft appears occluded. Right iliac jacob ry is occluded. Contrast is within the bilateral common femoral arteries. 3. Diverticulosis without acute diverticulitis.
--- NOTE | 2021-05-18 12:52 | ECHOF ---
Referral Reason:lv function MEASUREMENTS -------- HEIGHT: 175.3 cm WEIGHT: 82.6 kg BP: IVSd: 1.4 cm (0.6 - 1.1) LVIDd: 4.7 cm (3.9 - 5.3) LVPWd: 1.5 cm (0.6 - 1.1) IVSs: 1.6 cm LVIDs: 4.2 cm LVPWs: 2.0 cm Ao Diam: 4.1 cm (2.0 - 3.7) AV Cusp: 2.4 cm (1.5 - 2.6) LA Diam: 4.2 cm (2.7 - 3.8) MV EXCURSION: 23.080 mm (> 18.000) MV EF SLOPE: 132 mm/s (70 - 150) EPSS: 0.4 cm MV E Nik: 0.68 m/s MV DecT: 110 ms MV A Nik: 0.56 m/s MV E/A Ratio: 1.23 RAP: 5.00 mmHg RVSP: 27.36 mmHg FINDINGS -------- Pacerwire seen in RV and RA. This was a technically good study. The left ventricular size is normal. There is mild concentric left ventricular hypertrophy. Overa ll left ventricular systolic function is mild-moderately impaired with, an EF between 40 - 45 %. The right ventricle is normal in size. Normal LA size by volume 22+/-6 ml/m2. The right atrial size is normal. The aortic valve is trileaflet, and appears structurally normal. No aortic stenosis or regurgitation. Mild mitral regurgitation is present. Mild tricuspid regurgitation present. Right ventricular systolic pressure is normal at < 35 mmHg. There is no pulmonic regurgitation present. Echo free space represents a pericardial fat pad. CONCLUSIONS -------- 1. Pacerwire seen in RV and RA. 2. The left ventricular size is normal. 3. There is mild concentric left ventricular hypertrophy. 4. Overall left ventricular systolic function is mild-moderately impaired with, an EF between 40 - 45 %. 5. The right ventricle is normal in size. 6. Normal LA size by volume 22+/-6 ml/m2. 7. The right atrial size is normal. 8. The aortic valve is trileaflet, and appears structurally normal. No aortic stenosis or regurgitati on. 9. Mild mitral regurgitation is present. 10. Mild tricuspid regurgitation present. 11. There is no pulmonic regurgitation present. 12. Echo free space represents a pericardial fat pad. PATROL DEPUTY SHERIFF: Joanie Shin RDCS
[2021-05-18 16:42] LABS: Glucose,Whole Blood 169 mg/dL (75-99)
[2021-05-18] MEDS: COLCHICINE 0.6 MG EACH PO SCH ×2 (16:43→20:07)
--- NOTE | 2021-05-18 16:48 | PN ---
PROGRESS NOTE DATE OF SERVICE: 05/18/2021 REASON FOR FOLLOWUP: Fever, concern for possible left big toe gouty arthritis. INTERVAL HISTORY: The patient overall fever pattern has improved. The patient is complaining of pain to the lower extremities especially the feet, more the left foot and more worse with walking. Denies any chest pain, shortness of breath or cough. No abdominal pain or diarrhea. PHYSICAL EXAMINATION: Blood pressure 113/88 with a pulse of 97, temperature 98.8. He is 94% on room air. General description is an elderly male lying in bed in no distress. Respiratory system: Unlabored breathing, clear to auscultation anteriorly. Heart S1, S2. Regular rate and rhythm. Abdomen soft, no tenderness. Left big toe first metatarsophalangeal joint did show some swelling, warmth and tenderness. LABS: Hemoglobin is 10.8, white count 8.5, BUN of 20, creatinine 1.16. A CT of abdomen and pelvis did not show any acute abnormality. DIAGNOSTIC IMPRESSION AND PLAN: Patient admitted to the hospital with fever, significant pain to the lower extremities, which was initially though to be related to his peripheral arterial disease, now suspicion for possible acute gouty arthritis especially involving the left 1st metatarsophalangeal joint. We will add colchicine. Adjust antibiotic to cefazolin, check uric acid level. Family at the bedside. Questions were answered. MMODL / IJN: [id number] /
[2021-05-18 19:39] LABS: Glucose,Whole Blood 224 mg/dL (75-99)
--- NOTE | 2021-05-18 19:50 | PN ---
PROGRESS NOTE This gentleman has nonischemic cardiomyopathy. Significant peripheral vascular disease with previous surgery. He was scheduled to have a percutaneous intervention in the next week or so by Dr. Gandara. However, he came in with continuous pain was seen by Dr. Crandall, who also advised that he can safely wait and we are not dealing with critical limb ischemia. The patient is comfortable, asymptomatic at the time of my evaluation, has no rest symptoms at all. Pulses are Doppler pulses but they are definitely heard easily on the Doppler. Vitals are stable. No JVD. S1-S2 are normal. A distant heart sound short systolic murmur. Clear lungs. Abdomen is soft. Lower extremities reveal diminished pulses. I am recommending that he can be discharged on current medical therapy and come and have a percutaneous intervention by Dr. Gandara next week and follow up with vascular surgeon as well. MMODL / IJN: [id number] /
[2021-05-18] MEDS: INSULIN DETEMIR (LEVEMIR) 100 UNIT/ML SYR SQ SCH (21:28)
[2021-05-19] MEDS: HYDROmorphone 0.5 MG/0.5 ML SYRINGE IVP PRN ×4 (03:13→16:18)
[2021-05-19 06:07] LABS: Glucose,Whole Blood 148 mg/dL (75-99)
[2021-05-19 08:23] LABS: Uric Acid 5.5 mg/dL (3.5-8.5)
[2021-05-19 08:36] LABS: C Reactive Protein 19.1 mg/dL (<1.0)
[2021-05-19] MEDS: ENOXAPARIN 40 MG/0.4 ML SYRINGE SQ SCH (09:25)
[2021-05-19] MEDS: PANTOPRAZOLE 40 MG TABLET PO SCH (09:26)
[2021-05-19] MEDS: FENOFIBRATE 160 MG TAB PO SCH (09:26)
[2021-05-19] MEDS: CLOPIDOGREL 75 MG TAB PO SCH (09:26)
[2021-05-19] MEDS: lisinopriL 20 MG TAB PO SCH (09:26)
[2021-05-19] MEDS: GABAPENTIN 300 MG CAP PO SCH ×2 (09:26→16:18)
[2021-05-19] MEDS: ATORVASTATIN 40 MG TAB PO SCH (09:26)
[2021-05-19] MEDS: TAMSULOSIN 0.4 MG CAP.ER.24H PO SCH (09:26)
[2021-05-19] MEDS: METOPROLOL SUCCINATE (ER) 100 MG TAB.ER.24H PO SCH (09:26)
[2021-05-19] MEDS: COLCHICINE 0.6 MG EACH PO SCH (09:28)
[2021-05-19] MEDS: INSULIN ASPART (NovoLOG) 100 UNIT/ML VIAL SQ SCH ×3 (09:29→17:10)
--- NOTE | 2021-05-19 09:44 | P.PN ---
Subjective Progress Note Date: 05/18/21 Principal diagnosis: Fever; possible acute gouty arthritis left first metatarsal joint Bilateral lower extremity pain/PVOD Hyperkalemia 65-year-old male came in with compensative for severe pain in bilateral lower expertise patient does have extensive history of metastatic disease and the patient underwent a recent intervention since then patient was having pain in bilateral lower extremity his patient presently has completely occluded bilateral popliteal arteries patient has worse pain in the right foot than the left foot. Patient is unable to bear. Patient has severe tenderness upon touching in the. Pain has been progressively was because of which patient came to ER. In ER patient is found to have fever of 103 source of infection is not c lear because of which patient was admitted for further workup patient had a chest x-ray which was negative urine analysis did not show any significant abnormality Covid 19 testing was negative. There was a concern that the his recent surgical graft is infected. Patient has multiple procedures in the past including stent prior to the left common iliac artery with mid in-stent restenosis involving the left external iliac artery occluded left to right fem- fem bypass for which patient underwent open thrombectomy in month of February and transluminal balloon angioplasty of the left common femoral artery. Patient at that time was found to have completely occluded pop [place] vessels which were not addressed. Surgical site showed complete healing without any evidence of infection. Patient denied any cough dysuria denied any nausea vomiting diarrhea. Patient denied any body aches. was started on empiric Zosyn was subsequently admitted. Objective - Vital Signs Vital signs: Vital Signs Temp 98.8 F 05/18/21 08:02 Pulse 104 H 05/18/21 08:02 Resp 20 05/18/21 08:02 BP 139/79 05/18/21 08:02 Pulse Ox 94 L 05/18/21 08:02 Intake & Output 05/17/21 05/18/21 05/18/21 18:59 06:59 18:59 Intake Total 480 475 420 Output Total 400 275 Balance 80 475 145 Weight 103.419 kg 83 kg Intake: Intake, IV Titration 475 Amount Piperacillin-Tazobactam 3 100 .375 gm In Sodium Chloride 0.9% 100 ml @ 25 mls/hr IVPB Q8H [facility] Rx#: [id number] Sodium Chloride 0.9% 1, 375 000 ml @ 75 mls/hr IV . [id number] ONE Rx#:[id number] Oral 480 420 Output: Urine 400 275 Other: Voiding Method Urinal Urinal Urinal - Exam GENERAL: The patient is alert and oriented x3, not in any acute distress. Well developed, well nourished. HEENT: Pupils are round and equally reacting to light. EOMI. No scleral icterus. No conjunctival pallor. Normocephalic, atraumatic. No pharyngeal erythema. No thyromegaly. CARDIOVASCULAR: S1 and S2 present. No murmurs, rubs, or gallops. PULMONARY: Chest is clear to auscultation, no wheezing or crackles. ABDOMEN: Soft, nontender, nondistended, normoactive bowel sounds. No palpable organomegaly. MUSCULOSKELETAL: No joint swelling or deformity. EXTREMITIES: Show and had mild cyanosis of bilateral lower extremities does have tenderness severe pain with any slightest movement of both extremities, patient does have mildly palpable pulses of bilateral popliteal posterior tibial dorsalis pedis. Both extremities are tender to touch NEUROLOGICAL: Gross neurological examination did not reveal any focal deficits. - Labs CBC & Chem 7: 05/18/21 06:53 05/18/21 06:53 Labs: Abnormal Lab Results - Last 24 Hours (Table) 05/17/21 05/17/21 05/18/21 Range/Units 16:50 21:01 06:35 RBC (4.30-5.90) m/uL Hgb (13.0-17.5) gm/dL Hct (39.0-53.0) % POC Glucose (mg/dL) 164 H 101 H 101 H (75-99) mg/dL Calcium (8.4-10.2) mg/dL C-Reactive Protein (<1.0) mg/dL Total Protein (6.3-8.2) g/dL 05/18/21 05/18/21 05/18/21 Range/Units 06:53 06:53 11:51 RBC 3.55 L (4.30-5.90) m/uL Hgb 10.1 L (13.0-17.5) gm/dL Hct 29.8 L (39.0-53.0) % POC Glucose (mg/dL) 109 H (75-99) mg/dL Calcium 7.4 L (8.4-10.2) mg/dL C-Reactive Protein 26.0 H (<1.0) mg/dL Total Protein 6.2 L (6.3-8.2) g/dL Microbiology - Last 24 Hours (Table) 05/17/21 08:22 Blood Culture - Preliminary Blood No Growth after 24 hours 05/17/21 08:22 Blood Culture - Preliminary Blood No Growth after 24 hours Assessment and Plan Assessment: -Fever: Etiology is not clear patient is on empiric Zosyn which will be continued infectious disease will be consulted concern is the recent crafter for progressive disease may be infected but the possibility of which is low I'll consult infectious disease continue the antibiotics for now. -Mildly elevated potassium of hypokalemia secondary to hemolysis will continue with SARA inhibitor, patient will be a low potassium diet and if her potassium remains high tomorrow consider discontinuation of SARA inhibitor at that time. -Bilateral lower extremity pain: Probably secondary to peripheral v ascular/arterial disease asked her surgery and interventional radiologists were consulted. Patient is on Eliquis for now will hold off on Eliquis for any possible intervention patient will be started on Lovenox for DVT prophylaxis -History of congestive heart failure patient has problem now normal ejection fraction patient appeared to have had ischemic cardiomyopathy and subsequent recovery of myocardium with normal ejection fraction now. -Type 2 diabetes mellitus -Hypertension -Hyperlipidemia
[2021-05-19 11:44] LABS: Glucose,Whole Blood 200 mg/dL (75-99)
[2021-05-19 11:52] VITALS: RESP 16; TEMP 96
[2021-05-19 16:27] VITALS: BP 136/74; PULSE 90
[2021-05-19 16:58] LABS: Glucose,Whole Blood 231 mg/dL (75-99)
--- NOTE | 2021-05-19 19:48 | PN ---
PROGRESS NOTE DATE OF SERVICE: 05/19/2021. HISTORY: The patient has nonischemic cardiomyopathy, peripheral artery disease. He has diminished pulses but there are Doppler pulses. He complains of pain. I am recommending that he can be discharged since pain does not appear to be a related to significant ischemia of lower extremities. He is scheduled to have an intervention performed by Dr. Gandara. PHYSICAL EXAM: Vitals are stable no. JVD S1, S2 heard normally. Lungs are clear. Abdomen is soft, nontender. Lower extremities reveal diminished pulses. Central system normal. PLAN: Patient can be discharged today and see Dr. Gandara in the office for scheduled repeat percutaneous intervention procedure of lower extremities. MMODL / IJN: [id number] /
--- NOTE | 2021-05-19 22:08 | P.PN ---
Progress Note - Text Progress Note Date: 05/19/21 REASON FOR FOLLOWUP: Fever, concern for possible left big toe gouty arthritis. INTERVAL HISTORY: The patient is afebrile. The patient pain to the lower extremities especially the feet, more the left foot and more worse with walking. Denies any chest pain, shortness of breath or cough. No abdominal pain or diarrhea. PHYSICAL EXAMINATION: Blood pressure 110/80 with a pulse of 90, temperature 98.8. He is 94% on room air. General description is an elderly male lying in bed in no distress. Respiratory system: Unlabored breathing, clear to auscultation anteriorly. Heart S1, S2. Regular rate and rhythm. Abdomen soft, no tenderness. Left big toe first metatarsophalangeal joint did show some swelling, warmth and tenderness. LABS: reviewed DIAGNOSTIC IMPRESSION AND PLAN: Patient admitted to the hospital with fever, significant pain to the lower extremities, which was initially though to be related to his peripheral arterial disease, now suspicion for possible acute gouty arthritis especially involving the left 1st metatarsophalangeal joint. continue colchicine and short course of keflex on discharge
--- NOTE | 2021-05-26 01:28 | P.DS ---
Providers Date of admission: 05/17/21 10:45 Expected date of discharge: 05/19/21 Attending physician: Kirsten Rock Consults: 05/17/21 10:45 Consult Physician Urgent Consulting Provider: Shreyas Camargo Consult Reason/Comments: Bilateral leg pain Do you want consulting provider notified?: Yes Consult Physician Urgent Consulting Provider: Valeriy Gandara Consult Reason/Comments: Peripheral artery disease, leg pain Do you want consulting provider notified?: Yes 05/17/21 14:35 Consult Physician Routine Consulting Provider: Carol Dahl Consult Reason/Comments: Fever with no clear source of infection Do you want consulting provider notified?: Yes Primary care physician: Grant Belkis [facility] Course: Fever; possible acute gouty arthritis left first metatarsal joint Bilateral lower extremity pain/PVOD Hyperkalemia 65-year-old male came in with compensative for severe pain in bilateral lower expertise patient does have extensive history of metastatic disease and the patient underwent a recent intervention since then patient was having pain in bilateral lower extremity his patient presently has completely occluded bilateral popliteal arteries patient has worse pain in the right foot than the left foot. Patient is unable to bear. Patient has severe tenderness upon touching in the. Pain has been progressively was because of which patient came to ER. In ER patient is found to have fever of 103 source of infection is not clear because of which patient was admitted for further workup patient had a chest x-ray which was negative urine analysis did not show any significant abnormality Covid 19 testing was negative. There was a concern that the his recent surgical graft is infected. Patient has multiple procedures in the past including stent prior to the left common iliac artery with mid in-stent restenosis involving the left external iliac artery occluded left to right fem- fem bypass for which patient underwent open thrombectomy in month of February and transluminal balloon angioplasty of the left common femoral artery. Patient at that time was found to have completely occluded pop [place] vessels which were not addressed. Surgical site showed complete healing without any evidence of infection. Patient denied any cough dysuria denied any nausea vomiting diarrhea. Patient denied any body aches. was started on empiric Zosyn was subsequently admitted. DIAGNOSTIC IMPRESSION AND PLAN: Patient admitted to the hospital with fever, significant pain to the lower extremities, which was initially though to be related to his peripheral arterial disease, now suspicion for possible acute gouty arthritis especially involving the left 1st metatarsophalangeal joint. continue colchicine and short course of keflex on discharge Plan - Discharge Summary New Discharge Prescriptions: New HYDROcodone/APAP 7.5-325MG [Solo 7.5-325] 1 tab PO Q6HR PRN 3 Days #12 tab PRN Reason: Pain Colchicine [Colcrys] 0.6 mg PO BID #30 each Cephalexin [Keflex] 500 mg PO Q8HR 7 Days #20 cap Continue Clopidogrel [Plavix] 75 mg PO DAILY #30 tab Omeprazole 20 mg PO DAILY Insulin Glargine [Lantus] 50 unit SQ HS Insulin Aspart [NovoLOG] 6 units SQ AC-TID Metoprolol Succinate (ER) [Toprol XL] 100 mg PO QAM Glimepiride [Amaryl] 1 mg PO AC-BRKFST Fenofibrate Nanocrystallized [Fenofibrate] 145 mg PO DAILY Apixaban [Eliquis] 2.5 mg PO BID #0 tab Spironolactone [Aldactone] 25 mg PO DAILY Gabapentin [Neurontin] 300 mg PO TID Atorvastatin Calcium [Lipitor] 80 mg PO HS Tamsulosin HCl [Flomax] 0.4 mg PO DAILY Rosuvastatin [Crestor] 20 mg PO DAILY lisinopriL [Zestril] 20 mg PO DAILY No Action Aspirin 325 mg PO DAILY Furosemide [Lasix] 40 mg PO BID Acetaminophen/Diphenhydramine [Tylenol PM 500-25mg] 2 tab PO HS Discharge Medication List Clopidogrel [Plavix] 75 mg PO DAILY #30 tab 09/07/15 [Rx] Omeprazole 20 mg PO DAILY 02/24/17 [History] Insulin Aspart [NovoLOG] 6 units SQ AC-TID 07/16/19 [History] Insulin Glargine [Lantus] 50 unit SQ HS 07/16/19 [History] Fenofibrate Nanocrystallized [Fenofibrate] 145 mg PO DAILY 01/16/21 [History] Glimepiride [Amaryl] 1 mg PO AC-BRKFST 01/16/21 [History] Metoprolol Succinate (ER) [Toprol XL] 100 mg PO QAM 01/16/21 [History] Apixaban [Eliquis] 2.5 mg PO BID #0 tab 02/24/21 [Rx] Atorvastatin Calcium [Lipitor] 80 mg PO HS 05/17/21 [History] Gabapentin [Neurontin] 300 mg PO TID 05/17/21 [History] Rosuvastatin [Crestor] 20 mg PO DAILY 05/17/21 [History] Spironolactone [Aldactone] 25 mg PO DAILY 05/17/21 [History] Tamsulosin HCl [Flomax] 0.4 mg PO DAILY 05/17/21 [History] lisinopriL [Zestril] 20 mg PO DAILY 05/17/21 [History] Cephalexin [Keflex] 500 mg PO Q8HR 7 Days #20 cap 05/19/21 [Rx] Colchicine [Colcrys] 0.6 mg PO BID #30 each 05/19/21 [Rx] HYDROcodone/APAP 7.5-325MG [Solo 7.5-325] 1 tab PO Q6HR PRN 3 Days #12 tab 05/19/21 [Rx] Acetaminophen/Diphenhydramine [Tylenol PM 500-25mg] 2 tab PO HS 05/21/21 [History] Aspirin 325 mg PO DAILY 05/21/21 [History] Furosemide [Lasix] 40 mg PO BID 05/21/21 [History] Follow up Appointment(s)/Referral(s): Elizabeth Baltazar MD [Primary Care Provider] - 1-2 days Patient Instructions/Handouts: Gout (DC) Discharge Disposition: HOME SELF-CARE
== END 2021-05-19 19:59 | disposition home or self-care (01) | DRG 554 ==
LOC: EC 08:07 → 3SCARD 10:45
PROVIDERS: ADMIT Internal Medicine; ATTEND Internal Medicine
DX: M10.072 Idiopathic gout, left ankle and foot (principal); I42.8 Other cardiomyopathies; I70.203 Unspecified atherosclerosis of native arteries of extremities, bilateral legs; Z20.822 Contact with and (suspected) exposure to COVID-19; Z95.810 Presence of automatic (implantable) cardiac defibrillator; Z87.891 Personal history of nicotine dependence; Z87.442 Personal history of urinary calculi; Z80.9 Family history of malignant neoplasm, unspecified; Z79.899 Other long term (current) drug therapy; Z79.82 Long term (current) use of aspirin; Z79.4 Long term (current) use of insulin; Z79.02 Long term (current) use of antithrombotics/antiplatelets; Z79.01 Long term (current) use of anticoagulants; M19.042 Primary osteoarthritis, left hand; M19.041 Primary osteoarthritis, right hand; I25.2 Old myocardial infarction; E78.5 Hyperlipidemia, unspecified; E11.51 Type 2 diabetes mellitus with diabetic peripheral angiopathy without gangrene; E87.5 Hyperkalemia; I11.0 Hypertensive heart disease with heart failure; I27.20 Pulmonary hypertension, unspecified; I50.9 Heart failure, unspecified
CPT/HCPCS: 36415; 71046; 74177; 80053; 81003; 82550; 83605; 84145; 84550; 85025; 85610; 85652; 85730; 86140; 87040; 87635; 93005; 93306; 96361; 96365; 96366; 96374; 96375; 99285

== ENCOUNTER 2021-05-23 10:53 | Day surgery (SDC) | payer MEDICARE, OTHER ==
[2021-05-21 13:07] VITALS: BMI 33.6
[~2021-05-23 10:53] MED LIST changes: +ALPRAZolam 0.25 MG TAB PO PRN; +ASPIRIN 325 MG TAB PO PRN; +SODIUM CHLORIDE 0.9% 1,000 ML in EMPTY BAG 1 BAG IV ONE; -fentaNYL (PF) 50 MCG/ML 2 ML AMP IV PRN
[2021-05-23] MEDS ORDERED: SODIUM CHLORIDE 0.9% 1,000 ML IV ONE (11:30)
[2021-05-23 12:01] LABS: Basophils # (A) 0.1 k/uL (0-0.2); Basophils % (A) 1 %; Eosinophils # (A) 0.6 k/uL (0-0.7); Eosinophils % (A) 8 %; HCT 34.4 % (39.0-53.0); HGB 11.6 gm/dL (13.0-17.5); Lymphocytes # (A) 1.8 k/uL (1.0-4.8); Lymphocytes % (A) 25 %; MCH 27.7 pg (25.0-35.0); MCHC 33.7 g/dL (31.0-37.0); MCV 82.3 fL (80.0-100.0); Mean Platelet Volume 7.2; Monocytes # (A) 0.5 k/uL (0-1.0); Monocytes % (A) 6 %; Neutrophils # (A) 4.3 k/uL (1.3-7.7); Neutrophils % (A) 58 %; Platelet Count 422 k/uL (150-450); RBC 4.19 m/uL (4.30-5.90); RDW 13.3 % (11.5-15.5); WBC 7.3 k/uL (3.8-10.6)
[2021-05-23 12:03] LABS: Glucose,Whole Blood 150 mg/dL (75-99)
[2021-05-23 12:21] LABS: Calcium 9.9 mg/dL (8.4-10.2)
[2021-05-23] MEDS ORDERED: SODIUM CHLORIDE 0.9% 500 ML 500 ML with niCARdipine 6.25 MG, NITROGLYCERIN-D5W PMX 0.05... IV ONE ×4 (14:36)
[2021-05-23] MEDS ORDERED: MIDAZOLAM 2 MG/2 ML VIAL IVP ONE (15:23)
[2021-05-23] MEDS ORDERED: LIDOCAINE 1% INJ 10MG/ML (20 ML MDV) SQ ONE ×2 (15:27→15:30)
[2021-05-23] MEDS ORDERED: HYDROmorphone 0.5 MG/0.5 ML SYRINGE IVP ONE (15:35)
[2021-05-23] MEDS ORDERED: IOPAMIDOL-250 100ML BTL INTRAARTER ONE (16:24)
[2021-05-23] MEDS ORDERED: SODIUM CHLORIDE 0.9% 1,000 ML in EMPTY BAG 1 BAG IV SCH (16:30)
[2021-05-23 18:48] LABS: Glucose,Whole Blood 171 mg/dL (75-99)
[2021-05-23] MEDS: HYDROcodone/APAP 7.5-325MG 1 EACH TAB PO PRN (18:48)
[2021-05-23] MEDS: INSULIN ASPART (NovoLOG) 100 UNIT/ML VIAL SQ SCH ×2 (18:48→21:14)
--- NOTE | 2021-05-23 20:25 | AN ---
ANGIOGRAPHY REPORT DATE OF SERVICE: 05/23/2021 PERFORMING PHYSICIAN: Valeriy Gandara MD. PROCEDURE PERFORMED: 1. An atherectomy of the right popliteal and right tibioperoneal trunk using the HawkOne device with extraction of significant plaque. 2. Intravascular ultrasound (IVUS) of the right popliteal and right tibioperoneal trunk. 3. Successful balloon angioplasty of the right popliteal and right tibioperoneal trunk using initially 5 mm Chocolate balloon and subsequently 5 mm drug-coated balloon with an excellent angiographic result. 4. Selective angiogram of the right popliteal and right tibioperoneal trunk as well as the right posterior tibial artery. 5. Ultrasound-guided access of the right posterior tibial artery. INDICATION: Critical limb ischemia with resting pain for this is a 65-year-old gentleman who is known to have severe occlusive peripheral arterial disease. APPROACH: Right posterior tibial artery. COMPLICATION: None. LEVEL OF SEDATION: Moderate with sedation length of 58 minutes. PROCEDURE DESCRIPTION: After obtaining an informed consent, the patient was brought to the cardiac dental laboratory worker. The right posterior tibial artery was cannulated using micropuncture technique under ultrasound guidance, the micropuncture wire passed easily then I placed a slender sheath 5/6-Slovak at the right posterior tibial artery. Subsequently, I did start cocktail infusion via the sheath side arm using heparin as well as verapamil as well as nitroglycerins. Also, IV anticoagulation was initiated using heparin and the patient was given 6000 units. Please note that continuous ACT monitoring was performed throughout the case. I did selective angiogram using 035 CXI catheter. The CXI catheter watch was placed at the tibioperoneal trunk and I did selective angiogram which revealed the occlusion of the right TPT as well as popliteal. I crossed that using ( ) gold tip Glidewire and I did inject at the right popliteal to prove that I was in the true lumen. Subsequently, I did intravascular ultrasound which revealed that I was in the true lumen. I did atherectomy using the HawkOne device with extraction of significant plaque. Subsequently, balloon angioplasty was initially performed using 4 and then 5 mm Chocolate balloon before drug coated balloon was also done using 5 mm. The following angiogram showed excellent angiographic results and the procedure was completed without any complication. POSTPROCEDURE MANAGEMENT: 1. Dual anti-platelet therapy. 2. Risk factor modifications. 3. Follow up with the patient. MMODL / IJN: [id number] /
[2021-05-23 20:30] LABS: Glucose,Whole Blood 170 mg/dL (75-99)
[2021-05-23] MEDS ORDERED: INSULIN DETEMIR (LEVEMIR) 100 UNIT/ML SYR SQ SCH (21:00)
[2021-05-23] MEDS ORDERED: ACETAMINOPHEN TAB 500 MG TAB PO SCH (21:00)
[2021-05-23] MEDS ORDERED: ATORVASTATIN 80 MG TAB PO SCH (21:00)
[2021-05-23] MEDS ORDERED: diphenhydrAMINE 25 MG CAP PO SCH (21:00)
[2021-05-23] MEDS: COLCHICINE 0.6 MG EACH PO SCH (21:13)
[2021-05-23] MEDS: GABAPENTIN 300 MG CAP PO SCH (21:14)
[2021-05-23] MEDS: CEPHALEXIN 500 MG CAP PO SCH (23:16)
[2021-05-24] MEDS: HYDROcodone/APAP 7.5-325MG 1 EACH TAB PO PRN (06:43)
[2021-05-24 07:12] LABS: Glucose,Whole Blood 153 mg/dL (75-99)
[2021-05-24] MEDS ORDERED: GLIMEPIRIDE 1 MG TAB PO SCH (07:30)
[2021-05-24 07:37] LABS: Basophils % (A) 1 %; Eosinophils # (A) 0.5 k/uL (0-0.7); Eosinophils % (A) 7 %; HCT 31.9 % (39.0-53.0); HGB 10.3 gm/dL (13.0-17.5); Lymphocytes # (A) 2.1 k/uL (1.0-4.8); Lymphocytes % (A) 28 %; MCH 26.7 pg (25.0-35.0); MCHC 32.2 g/dL (31.0-37.0); Mean Platelet Volume 7.2; Monocytes # (A) 0.5 k/uL (0-1.0); Monocytes % (A) 6 %; Neutrophils # (A) 4.1 k/uL (1.3-7.7); Neutrophils % (A) 56 %; Platelet Count 383 k/uL (150-450); RBC 3.84 m/uL (4.30-5.90); RDW 13.5 % (11.5-15.5); WBC 7.4 k/uL (3.8-10.6)
[2021-05-24 07:53] LABS: Calcium 9.6 mg/dL (8.4-10.2)
[2021-05-24] MEDS ORDERED: NON FORMULARY DRUG (Rosuvastatin 20 MG Tablet) PO SCH (09:00)
[2021-05-24] MEDS ORDERED: FENOFIBRATE 160 MG TAB PO SCH (09:00)
[2021-05-24] MEDS ORDERED: SPIRONOLACTONE 25 MG TAB PO SCH (09:00)
[2021-05-24] MEDS ORDERED: CLOPIDOGREL 75 MG TAB PO SCH (09:00)
[2021-05-24] MEDS ORDERED: ASPIRIN 325 MG TAB PO SCH (09:00)
[2021-05-24] MEDS ORDERED: METOPROLOL SUCCINATE (ER) 100 MG TAB.ER.24H PO SCH (09:00)
[2021-05-24] MEDS ORDERED: FUROSEMIDE 40 MG TAB PO SCH (09:00)
[2021-05-24] MEDS ORDERED: PANTOPRAZOLE 40 MG TABLET PO SCH (09:00)
[2021-05-24] MEDS ORDERED: lisinopriL 20 MG TAB PO SCH (09:00)
[2021-05-24] MEDS ORDERED: TAMSULOSIN 0.4 MG CAP.ER.24H PO SCH (09:00)
[2021-05-24 09:03] VITALS: BP 135/81; PULSE 81; RESP 18; TEMP 98.2
[2021-05-24] MEDS: INSULIN ASPART (NovoLOG) 100 UNIT/ML VIAL SQ SCH ×2 (09:03→09:04)
[2021-05-24] MEDS: CEPHALEXIN 500 MG CAP PO SCH (09:05)
[2021-05-24] MEDS: COLCHICINE 0.6 MG EACH PO SCH (09:06)
[2021-05-24] MEDS: GABAPENTIN 300 MG CAP PO SCH (09:09)
--- NOTE | 2021-05-24 09:21 | DS ---
DISCHARGE SUMMARY DATE OF ADMISSION: 05/23/2021 DATE OF DISCHARGE: 05/24/2021 BRIEF HISTORY: This is a very pleasant 65-year-old gentleman who underwent yesterday successful recanalizing of chronically occluded popliteal artery from pedal approach. The patient is going to be discharged home on dual anti-platelet therapy and the patient will be seen in the office. Please note that the patient was seen and examined this morning. MMODL / IJN: [id number] /
--- NOTE | 2021-05-24 09:38 | IR ---
EXAMINATION TYPE: IR stent intravas non coronary DATE OF EXAM: 05/23/2021 COMPARISON: NONE HISTORY: Fluoroscopy time. Fluoroscopy was provided to the referring clinician.
== END 2021-05-24 11:26 | disposition home or self-care (01) ==
LOC: CATHCVL 10:53 → 3SCARD 16:33 → CATHCVL 05-24 11:26
PROVIDERS: ATTEND Internal Medicine Interventional Cardiology
DX: I70.221 Atherosclerosis of native arteries of extremities with rest pain, right leg (principal); I42.8 Other cardiomyopathies; Z95.810 Presence of automatic (implantable) cardiac defibrillator; I10 Essential (primary) hypertension; E78.5 Hyperlipidemia, unspecified; Z20.822 Contact with and (suspected) exposure to COVID-19; E66.9 Obesity, unspecified; Z68.34 Body mass index [BMI] 34.0-34.9, adult; E11.9 Type 2 diabetes mellitus without complications; Z79.02 Long term (current) use of antithrombotics/antiplatelets; Z79.82 Long term (current) use of aspirin; Z79.4 Long term (current) use of insulin; Z79.899 Other long term (current) drug therapy
CPT/HCPCS: 37225; 37252; 80048 ×2; 85025 ×2; 87635; C1894 ×2; C1769 ×4; C1714; C1753; C2623 ×2; C1725; J2250; J2001; J1644 ×2; J1170; Q9966

== ENCOUNTER → 2021-06-12 | Outpatient (CLI) | payer MEDICARE, OTHER ==
[2021-06-12 13:47] LABS: HCT 36.9 % (39.0-53.0); HGB 12.3 gm/dL (13.0-17.5); MCH 28.4 pg (25.0-35.0); MCHC 33.2 g/dL (31.0-37.0); MCV 85.5 fL (80.0-100.0); Mean Platelet Volume 8.6; Platelet Count 238 k/uL (150-450); RBC 4.31 m/uL (4.30-5.90); RDW 14.2 % (11.5-15.5); WBC 10.8 k/uL (3.8-10.6)
[2021-06-12 13:58] LABS: Potassium 5.5 mmol/L (3.5-5.1)
== END | disposition home or self-care (01) ==
LOC: LABPAT 12:25
PROVIDERS: ATTEND Internal Medicine Interventional Cardiology
DX: Z01.812 Encounter for preprocedural laboratory examination (principal); I70.213 Atherosclerosis of native arteries of extremities with intermittent claudication, bilateral legs
CPT/HCPCS: 36415; 80051; 82565; 84520; 85027

== ENCOUNTER 2021-06-27 06:14 | Day surgery (SDC) | payer MEDICARE, OTHER ==
[2021-06-18 15:22] VITALS: BMI 33.6
[2021-06-27] MEDS ORDERED: ALPRAZolam 0.5 MG TAB PO PRN (06:31)
[2021-06-27] MEDS ORDERED: HEPARIN SODIUM,PORCINE 2,500 UNIT in SODIUM CHLORIDE 0.9% 250 ML IRRIGATION PRN (06:31)
[2021-06-27] MEDS ORDERED: HEPARIN SODIUM,PORCINE 10,000 UNIT in SODIUM CHLORIDE 0.9% 1,000 ML IRRIGATION PRN (06:31)
[2021-06-27] MEDS ORDERED: SODIUM CHLORIDE 0.9% 1,000 ML in EMPTY BAG 1 BAG IV ONE (06:31)
[2021-06-27] MEDS ORDERED: ZOLPIDEM 5 MG TAB PO PRN (06:31)
[2021-06-27] MEDS ORDERED: ASPIRIN 325 MG TAB PO PRN (06:31)
[2021-06-27] MEDS ORDERED: ALPRAZolam 0.25 MG TAB PO PRN (06:31)
[2021-06-27 07:02] LABS: Glucose,Whole Blood 118 mg/dL (75-99)
[2021-06-27 07:37] LABS: Calcium 8.4 mg/dL (8.4-10.2); Potassium 4.2 mmol/L (3.5-5.1)
[2021-06-27] MEDS ORDERED: SODIUM CHLORIDE 0.9% 500 ML 500 ML with niCARdipine 6.25 MG, NITROGLYCERIN-D5W PMX 0.05... IV ONE ×4 (09:18)
[2021-06-27] MEDS ORDERED: MIDAZOLAM 2 MG/2 ML VIAL IV ONE (09:50)
[2021-06-27] MEDS ORDERED: HYDROmorphone 0.5 MG/0.5 ML SYRINGE IVP ONE ×2 (09:50→11:25)
[2021-06-27] MEDS ORDERED: ONDANSETRON 4 MG/2 ML VIAL IVP ONE (09:50)
[2021-06-27] MEDS ORDERED: LIDOCAINE 1% INJ 10MG/ML (20 ML MDV) SQ ONE (09:54)
[2021-06-27] MEDS ORDERED: SODIUM CHLORIDE 0.9% 1,000 ML IV ONE (11:21)
[2021-06-27] MEDS: NITROGLYCERIN 1000MCG/10ML SYRINGE INTRAARTER ONE ×2 (11:56→12:16)
[2021-06-27] MEDS: niCARdipine Syringe (1,000 mcg/10 mL) INTRAARTER ONE ×2 (11:56→12:16)
[2021-06-27] MEDS ORDERED: CLOPIDOGREL 75 MG TAB PO ONE (12:32)
[2021-06-27] MEDS ORDERED: IOPAMIDOL-250 100ML BTL INTRAARTER ONE (12:33)
[2021-06-27] MEDS ORDERED: SODIUM CHLORIDE 0.9% 1,000 ML IV SCH (12:45)
--- NOTE | 2021-06-27 15:00 | LTR ---
DATE OF SERVICE: 06/27/2021 RE: Heath Mejia Dear Dr. Baltazar: Mr. Heath Mejia underwent today successful balloon angioplasty and opening of the totally occluded left popliteal and left posterior tibial artery. The procedure was performed without any complication and with an excellent angiographic results. Thank you for allowing us to participate in his care and please do not hesitate to call if you have any questions or concerns. Sincerely, MD GLADYS Isbell / MELITA: [id number] /
[2021-06-27] MEDS ORDERED: ONDANSETRON 4 MG/2 ML VIAL ONE ×2 (15:17→17:11)
[2021-06-27] MEDS ORDERED: ONDANSETRON 4 MG/2 ML VIAL IVP PRN (15:20)
[2021-06-27] MEDS ORDERED: HYDROcodone/APAP 7.5-325MG 1 EACH TAB ONE (15:37)
[2021-06-27] MEDS ORDERED: HYDROcodone/APAP 7.5-325MG 1 EACH TAB PO PRN (15:40)
--- NOTE | 2021-06-27 15:43 | AN ---
ANGIOGRAPHY REPORT DATE OF SERVICE: June 27, 2021. PERFORMING PHYSICIAN: Valeriy Gandara MD. PROCEDURE PERFORMED: 1. Atherectomy of the left posterior tibial artery and left popliteal artery using the Hawk 1 device with extraction of significant amount of plaque. 2. Intravascular ultrasound (IVUS) of the left posterior tibial artery and left popliteal. 3. Selective angiogram of the left posterior tibial artery and left popliteal. 4. Ultrasound-guided access of the left posterior tibial artery and left popliteal. INDICATION: This is a 65-year-old gentleman who was experiencing severe left lower extremity intermittent claudication and he is known to have occluded left popliteal. He was brought today to undergo an intervention. APPROACH: Left posterior tibial artery. INDICATION: This is a pleasant 65-year-old gentleman who is known to have peripheral arterial disease who underwent recently bilateral femoral endarterectomy with left to right fem- fem bypass. He is known to have severe femoral-popliteal disease and he underwent right popliteal intervention recently and he was brought today to undergo left popliteal intervention for severe left lower extremity intermittent claudication. APPROACH: Left posterior tibial artery and left common femoral artery. COMPLICATION: None. LEVEL OF SEDATION: Moderate with sedation length of 147 minutes. PROCEDURE DESCRIPTION: After obtaining an informed consent, the patient was brought to the cardiac lab aide. The left posterior tibial artery was cannulated using micropuncture technique under ultrasound guidance, the micropuncture wire passed easily. Then I placed a slender 5/6 sheath in the left posterior tibial artery. At that point, I did start the continuous infusion of heparin as well as verapamil as well as nitroglycerin continuously through the side-arm of the sheath in the left posterior tibial artery. Attempting crossing the chronic total occlusion from below was unsuccessful. At that point, I decided to cross from above. I did access the left common femoral artery using micropuncture technique under ultrasound guidance, the micropuncture wire passed easily. Then I placed a 6-[place]inian 55 cm sheath at the left common femoral artery. I was after that able to cross the chronic total occlusion of the left popliteal and left posterior tibial artery using 018 wire. Intravascular ultrasound was performed and showed that I was in the true lumen. Because of that, I did atherectomy using the Hawk device with extraction of significant amount of plaque. After that, I did balloon angioplasty initially using chocolate balloon and subsequently using a drug-coated balloon with the final angiogram showing excellent angiographic results and the procedure was completed without any complication and without the need for stenting. There was great flow. After that, I did pull the sheath out with holding pressure to achieve hemostasis. Subsequently I did exchange my 55 cm sheath into 11 cm sheath. The procedure was completed without any complication. POSTPROCEDURE MANAGEMENT: 1. Dual anti-platelet therapy. 2. Aggressive cholesterol control. 3. Risk factor modifications. 4. Follow up with the patient. GLADYS / MAKN: [id number] /
[2021-06-27] MEDS ORDERED: ACETAMINOPHEN TAB 500 MG TAB PO PRN (16:47)
[2021-06-27] MEDS: GABAPENTIN 300 MG CAP PO SCH ×3 (17:09→21:08)
[2021-06-27] MEDS ORDERED: ONDANSETRON 4 MG/2 ML VIAL IVP STA (17:15)
[2021-06-27 17:29] LABS: Glucose,Whole Blood 123 mg/dL (75-99)
[2021-06-27] MEDS: INSULIN ASPART (NovoLOG) 100 UNIT/ML VIAL SQ SCH (18:18)
[2021-06-27 20:24] LABS: Glucose,Whole Blood 148 mg/dL (75-99)
[2021-06-27] MEDS ORDERED: INSULIN DETEMIR (LEVEMIR) 100 UNIT/ML SYR SQ SCH (21:00)
[2021-06-27] MEDS ORDERED: ATORVASTATIN 80 MG TAB PO SCH (21:00)
[2021-06-27] MEDS: COLCHICINE 0.6 MG EACH PO SCH (21:08)
[2021-06-27] MEDS: FUROSEMIDE 20 MG TAB PO SCH (21:08)
[2021-06-28 07:27] LABS: Glucose,Whole Blood 228 mg/dL (75-99)
[2021-06-28] MEDS ORDERED: PANTOPRAZOLE 40 MG TABLET PO SCH (07:30)
[2021-06-28] MEDS: COLCHICINE 0.6 MG EACH PO SCH (07:59)
[2021-06-28] MEDS: FUROSEMIDE 20 MG TAB PO SCH (07:59)
[2021-06-28] MEDS: INSULIN ASPART (NovoLOG) 100 UNIT/ML VIAL SQ SCH (08:00)
[2021-06-28] MEDS: GABAPENTIN 300 MG CAP PO SCH (08:00)
[2021-06-28 08:07] VITALS: BP 125/69; PULSE 73; RESP 16; TEMP 98.6
[2021-06-28] MEDS ORDERED: CLOPIDOGREL 75 MG TAB PO SCH ×2 (09:00→10:00)
[2021-06-28] MEDS ORDERED: TAMSULOSIN 0.4 MG CAP.ER.24H PO SCH (09:00)
[2021-06-28] MEDS ORDERED: lisinopriL 20 MG TAB PO SCH (09:00)
[2021-06-28] MEDS ORDERED: FENOFIBRATE 160 MG TAB PO SCH (09:00)
[2021-06-28] MEDS ORDERED: SPIRONOLACTONE 25 MG TAB PO SCH (09:00)
[2021-06-28] MEDS ORDERED: METOPROLOL SUCCINATE (ER) 100 MG TAB.ER.24H PO SCH (09:00)
[2021-06-28] MEDS ORDERED: ASPIRIN 325 MG TAB PO SCH (09:00)
[2021-06-28] MEDS ORDERED: APIXABAN 2.5 MG TABLET PO SCH (09:00)
[2021-06-28 09:33] LABS: Basophils % (A) 0 %; Eosinophils # (A) 0.2 k/uL (0-0.7); Eosinophils % (A) 4 %; HCT 32.6 % (39.0-53.0); HGB 10.7 gm/dL (13.0-17.5); Lymphocytes # (A) 1.6 k/uL (1.0-4.8); Lymphocytes % (A) 25 %; MCH 28.2 pg (25.0-35.0); MCHC 32.8 g/dL (31.0-37.0); MCV 85.8 fL (80.0-100.0); Mean Platelet Volume 8.2; Monocytes # (A) 0.4 k/uL (0-1.0); Monocytes % (A) 6 %; Neutrophils # (A) 3.8 k/uL (1.3-7.7); Neutrophils % (A) 62 %; Platelet Count 257 k/uL (150-450); RDW 15.1 % (11.5-15.5); WBC 6.1 k/uL (3.8-10.6)
[2021-06-28 09:53] LABS: African American GFR (CKD) 49 (>60 ml/min/1.73 sqM); Anion Gap 7 mmol/L; Blood Urea Nitrogen 33 mg/dL (9-20); Calcium 7.8 mg/dL (8.4-10.2); Carbon Dioxide 25 mmol/L (22-30); Chloride 106 mmol/L (98-107); Glucose 201 mg/dL (74-99); Non-African American GFR(CKD) 42 (>60 ml/min/1.73 sqM); Potassium 5.2 mmol/L (3.5-5.1); Sodium 138 mmol/L (137-145)
--- NOTE | 2021-06-28 10:06 | DS ---
DISCHARGE SUMMARY ADMISSION DATE: 06/27/2021. DISCHARGE DATE: 06/28/2021 BRIEF HISTORY: This is a 65-year-old gentleman who was admitted to the hospital yesterday and underwent successful percutaneous intervention on the left popliteal and left SFA with good angiographic results and without any complication. The patient is going to be discharged home. There was no blood work performed this morning. Blood work was ordered stat. The sites are looking good. The patient will be seen and followed in a week. MMPETROSL / MAKN: [id number] /
--- NOTE | 2021-06-28 13:03 | IR ---
EXAMINATION TYPE: IR oil tanker captain femoral popliteal DATE OF EXAM: 06/27/2021 COMPARISON: NONE HISTORY: Fluoroscopy time. Fluoroscopy was provided to the referring clinician.
== END 2021-06-28 09:52 | disposition home or self-care (01) ==
LOC: CATHCVL 06:14 → 6NMEDSUR 12:20 → CATHCVL 06-28 09:52
PROVIDERS: ATTEND Internal Medicine Interventional Cardiology
DX: I73.9 Peripheral vascular disease, unspecified (principal); I10 Essential (primary) hypertension; E78.5 Hyperlipidemia, unspecified; E11.9 Type 2 diabetes mellitus without complications
CPT/HCPCS: 37225; 37252; 80048 ×2; 85025; C1894 ×3; C1769 ×8; C1725 ×2; C1714; C1753; C2623; J2250; J2405; J2001; J1644 ×2; J1170; Q9966

== ENCOUNTER → 2021-07-10 | Outpatient (CLI) | payer MEDICARE, OTHER ==
[2021-07-10 19:09] LABS: Basophils # (A) 0.06 X 10*3/uL (0.00-0.10); Basophils % (A) 0.6 %; Eosinophils # (A) 0.55 X 10*3/uL (0.04-0.35); Eosinophils % (A) 5.3 %; HCT 36.6 % (39.6-50.0); HGB 11.4 g/dL (13.0-17.0); Lymphocytes # (A) 2.92 X 10*3/uL (0.90-5.00); Lymphocytes % (A) 27.9 %; MCH 26.9 pg (27.0-32.0); MCHC 31.1 g/dL (32.0-37.0); MCV 86.3 fL (80.0-97.0); Mean Platelet Volume 11.7 fL (9.5-12.2); Monocytes % (A) 7.6 %; Neutrophils # (A) 5.95 X 10*3/uL (1.80-7.70); Neutrophils % (A) 56.9 %; Platelet Count 312 X 10*3/uL (140-440); RBC 4.24 X 10*6/uL (4.40-5.60); RDW 15.3 % (11.5-14.5); WBC 10.46 X 10*3/uL (4.50-10.00)
[2021-07-10 20:16] LABS: Hemoglobin A1C 7.6 % (4.0-6.0)
[2021-07-10 21:14] LABS: African American GFR (CKD) 34.9 (60.0-200.0); Albumin 4.5 g/dL (3.80-4.90); Albumin/Globulin Ratio 1.88 (1.60-3.17); Anion Gap 9.5 mmol/L (4.00-12.00); BUN/Creat Ratio 26.82 Ratio (12.00-20.00); Calcium 8.6 mg/dL (8.7-10.3); Carbon Dioxide 27.5 mmol/L (21.6-31.8); Globulin 2.4 g/dL (1.6-3.3); Non-African American GFR(CKD) 30.1 (60.0-200.0); Potassium 5.2 mmol/L (3.5-5.5); Total Bilirubin 0.2 mg/dL (0.2-1.2); Total Protein 6.9 g/dL (6.2-8.2); Uric Acid 10.1 mg/dL (3.7-8.7)
[2021-07-12 02:30] LABS: % Iron Saturation 8.44 (15.00-50.00)
== END | disposition home or self-care (01) ==
LOC: LABWHC1 14:06
PROVIDERS: ATTEND Internal Medicine
DX: I73.9 Peripheral vascular disease, unspecified (principal); M10.9 Gout, unspecified; E11.9 Type 2 diabetes mellitus without complications; N28.9 Disorder of kidney and ureter, unspecified
CPT/HCPCS: 36415; 80053; 83036; 83540; 83550; 84550; 85025

== ENCOUNTER → 2021-07-10 | Outpatient (CLI) | payer MEDICARE, OTHER ==
--- NOTE | 2021-07-12 23:26 | CT ---
EXAMINATION TYPE: CT lumbar spine wo con DATE OF EXAM: 07/11/2021 COMPARISON: None HISTORY: 65-year-old male Low back, bilateral hip and leg pain x 1 year. TECHNIQUE: Contiguous axial scanning of the lumbar spine without IV contrast. Coronal and sagittal re constructions performed. CT DLP: 824 mGycm Automated exposure control for dose reduction was used. FINDINGS: Abdominal aortic endovascular stent graft extending to the left common iliac artery. Bilateral common iliac artery vascular stents are also present. Vertebral body heights are preserved and alignment is maintained. Bridging anterior plate spondylosis T11-T12. Facet arthropathy mid to lower lumbar spine. Mild multilevel degenerative disc disease. Mild disc space narrowing upper lumbar spine and mild disc bulging throughout. By CT, no large focal disc herniation or evident canal compromise is seen. There is some prominent epidural fat at the L5 level moderately narrowing the thecal sac. On the right, changes result in moderate neural foraminal stenosis at L5-S1 and mild at L2 through L5 levels. On the left, changes resulting in moderate neuroforaminal stenosis at L5-S1, mild to moderate L2-L3 a nd L3-L4, and mild at L4-L5. IMPRESSION: 1. NO VERTEBRAL COMPRESSION COLLAPSE OR MALALIGNMENT. 2. MILD MULTILEVEL DEGENERATIVE DISC DISEASE. HYPERTROPHIC FACET ARTHROPATHY MID TO LOWER LUMBAR SPIN E. 3. EPIDURAL LIPOMATOSIS L5 AND BELOW CAUSING MODERATE THECAL SAC COMPRESSION. OTHERWISE, BY CT, NO LA RGE FOCAL DISC HERNIATION OR SIGNIFICANT SPINAL CANAL STENOSIS SEEN. 4. CHANGES RESULT IN MODERATE BILATERAL NEUROFORAMINAL STENOSIS AT L5-S1, MILD TO MODERATE ON THE LEF T AT L2-L3 AND L3-L4, AND MILD AT ADDITIONAL LEVELS IN THE LUMBAR SPINE.
== END | disposition home or self-care (01) ==
LOC: RADCTMAIN 13:28
PROVIDERS: ATTEND Psychiatry & Neurology Neurology
DX: M47.816 Spondylosis without myelopathy or radiculopathy, lumbar region (principal); M51.26 Other intervertebral disc displacement, lumbar region; M46.96 Unspecified inflammatory spondylopathy, lumbar region; M51.36 Other intervertebral disc degeneration, lumbar region; G95.20 Unspecified cord compression
CPT/HCPCS: 72131

== ENCOUNTER → 2021-09-17 | Outpatient (CLI) | payer MEDICARE, OTHER ==
[2021-09-17 15:48] LABS: Appearance,Urine Clear (Clear); Bilirubin,Urine Negative (Negative); Blood,Urine Negative (Negative); Color,Urine Yellow; Glucose,Urine (UA) Negative (Negative); Ketones,Urine Negative (Negative); Leukocyte Esterase,Urine Negative (Negative); Nitrite,Urine Negative (Negative); PH, Urine 5.5 (5.0-8.0); Protein,Urine Negative (Negative); Specific Gravity,Urine 1.017 (1.001-1.035); Urobilinogen,Urine <2.0 mg/dL (<2.0)
[2021-09-17 15:58] LABS: Creatinine,Urine Random 119.1 mg/dL
[2021-09-17 22:39] LABS: Basophils # (A) 0.08 X 10*3/uL (0.00-0.10); Basophils % (A) 0.8 %; Eosinophils # (A) 0.19 X 10*3/uL (0.04-0.35); Eosinophils % (A) 1.8 %; HCT 35.8 % (39.6-50.0); HGB 11.5 g/dL (13.0-17.0); Lymphocytes % (A) 20.9 %; MCH 27.8 pg (27.0-32.0); MCHC 32.1 g/dL (32.0-37.0); MCV 86.7 fL (80.0-97.0); Mean Platelet Volume 10.9 fL (9.5-12.2); Monocytes % (A) 5.7 %; Neutrophils # (A) 7.27 X 10*3/uL (1.80-7.70); Platelet Count 367 X 10*3/uL (140-440); RBC 4.13 X 10*6/uL (4.40-5.60); RDW 15.1 % (11.5-14.5); WBC 10.53 X 10*3/uL (4.50-10.00)
[2021-09-18 05:58] LABS: Protein, Total 6.9 g/dL (6.2-8.2)
[2021-09-18 06:25] LABS: % Iron Saturation 15.89 (15.00-50.00); Ferritin 45.8 ng/mL (22.0-322.0); Phosphorus 2.5 mg/dL (2.4-5.1); Uric Acid 8.2 mg/dL (3.7-8.7)
[2021-09-18 06:39] LABS: African American GFR (CKD) 55.4 (60.0-200.0); Albumin 4.5 g/dL (3.8-4.9); Anion Gap 13.6 mmol/L (4.00-12.00); BUN/Creat Ratio 26.07 Ratio (12.00-20.00); Blood Urea Nitrogen 39.1 mg/dL (9.0-27.0); Calcium 8.9 mg/dL (8.7-10.3); Carbon Dioxide 21.4 mmol/L (21.6-31.8); Magnesium 0.9 mg/dL (1.5-2.4); Non-African American GFR(CKD) 47.8 (60.0-200.0)
[2021-09-18 15:21] LABS: Albumin 3.95 g/dL (3.80-4.90); Gamma Globulin 0.84 g/dL (0.70-1.50)
== END | disposition home or self-care (01) ==
LOC: LABWHC1 14:23
PROVIDERS: ATTEND Internal Medicine Nephrology
DX: N18.32 Chronic kidney disease, stage 3b (principal); E55.9 Vitamin D deficiency, unspecified; N25.81 Secondary hyperparathyroidism of renal origin; M10.9 Gout, unspecified; N39.0 Urinary tract infection, site not specified; D64.9 Anemia, unspecified; R80.9 Proteinuria, unspecified
CPT/HCPCS: 36415; 80048; 81003; 82040; 82306; 82570; 82728; 83540; 83550; 83735; 83970; 84100; 84156; 84165; 84550; 85025; 86334; 86335

== ENCOUNTER → 2021-09-24 | Outpatient (CLI) | payer MEDICARE, OTHER ==
--- NOTE | 2021-09-25 10:07 | US ---
EXAMINATION TYPE: US kidneys/renal and bladder DATE OF EXAM: 09/24/2021 COMPARISON: CT CLINICAL HISTORY: N18.32 chronic kidney disease stage 3. EXAM MEASUREMENTS: Right Kidney: 10.7 x 4.8 x 4.9 cm Left Kidney: 10.1 x 5.6 x 4.6 cm Right Kidney: No hydronephrosis or masses seen Left Kidney: No hydronephrosis or masses seen Bladder: not fully distended, limited in evaluation. IMPRESSION: 1. Renal ultrasound as visualized is normal.
== END | disposition home or self-care (01) ==
LOC: RADUSWWP 15:42
PROVIDERS: ATTEND Internal Medicine Nephrology
DX: N18.32 Chronic kidney disease, stage 3b (principal)
CPT/HCPCS: 76770

== ENCOUNTER → 2021-12-04 | Outpatient (CLI) | payer MEDICARE, OTHER ==
--- NOTE | 2021-12-04 11:15 | XR ---
EXAMINATION TYPE: XR foot limited RT DATE OF EXAM: 12/04/2021 COMPARISON: NONE HISTORY: Pain TECHNIQUE: Two views are submitted. FINDINGS: The osseous structures are intact. There is no acute fracture or dislocation. There is severe narr owing of the first MTP joint with hypertrophic spur formation. Large plantar calcaneal spur. IMPRESSION: 1. Arthropathy with no definite acute fracture.
== END | disposition home or self-care (01) ==
LOC: RADXRMAIN 10:44
PROVIDERS: ATTEND Internal Medicine
DX: M12.871 Other specific arthropathies, not elsewhere classified, right ankle and foot (principal)

== ENCOUNTER 2022-06-26 20:14 | Emergency (ER) | payer MEDICARE, OTHER ==
[2022-06-26 20:43] VITALS: BP 153/80; PULSE 99; RESP 18; TEMP 98.1
[2022-06-26] MEDS ORDERED: diphenhydrAMINE 50 MG/ML 1 ML VIAL IM STA (21:52)
[2022-06-26] MEDS ORDERED: CEPHALEXIN 500 MG CAP PO STA (21:53)
--- NOTE | 2022-06-26 21:55 | ED ---
General Adult HPI - General Chief complaint: Skin/Abscess/Foreign Body Stated complaint: left arm swelling Time Seen by Provider: 06/26/22 21:13 Source: patient, RN notes reviewed Mode of arrival: ambulatory Limitations: no limitations - History of Present Illness Initial comments: 66-year-old male presents to the emergency department for evaluation of left forearm erythema and swelling. Patient states he was bit by an insect or spider yesterday and has had progressive pain and swelling since. States he did take Benadryl early in the day with no improvement. States arm is hot to touch and is accompanied by burning discomfort. Denies fever, chills, headache, difficulty swallowing, difficulty breathing, chest pain, abdominal pain, nausea, vomiting, diarrhea, or dysuria. - Related Data Home Medications Medication Instructions Recorded Confirmed Omeprazole 20 mg PO DAILY 02/24/17 06/27/21 Insulin Aspart [NovoLOG] 6 units SQ AC-TID 07/16/19 06/27/21 Insulin Glargine [Lantus Vial] 50 unit SQ 07/16/19 06/27/21 Fenofibrate Nanocrystallized 145 mg PO DAILY 01/16/21 06/27/21 [Fenofibrate] Glimepiride [Amaryl] 1 mg PO [id number] 01/16/21 06/27/21 Metoprolol Succinate (ER) [Toprol 100 mg PO QAM 01/16/21 06/27/21 XL] Atorvastatin Calcium [Lipitor] 80 mg PO HS 05/17/21 06/27/21 Gabapentin [Neurontin] 300 mg PO TID 05/17/21 06/27/21 Spironolactone [Aldactone] 25 mg PO DAILY 05/17/21 06/27/21 Tamsulosin HCl [Flomax] 0.4 mg PO DAILY 05/17/21 06/27/21 lisinopriL [Zestril] 20 mg PO DAILY 05/17/21 06/27/21 Acetaminophen/Diphenhydramine 2 tab PO HS 05/21/21 06/27/21 [Tylenol PM 500-25mg] Aspirin 325 mg PO DAILY 05/21/21 06/27/21 Furosemide [Lasix] 40 mg PO BID 05/21/21 06/27/21 metFORMIN HCL [Glucophage] 1,000 mg PO BID 06/18/21 06/27/21 HYDROcodone/APAP 7.5-325MG [[place] 1 tab PO Q4H PRN 06/27/21 06/27/21 7.5-325] Previous Rx's Medication Instructions Recorded Clopidogrel [Plavix] 75 mg PO DAILY #30 tab 09/07/15 Apixaban [Eliquis] 2.5 mg PO BID #0 tab 02/24/21 Colchicine [Colcrys] 0.6 mg PO BID #30 each 05/19/21 Cephalexin [Keflex] 500 mg PO Q6HR 5 Days #20 cap 06/26/22 Allergies Allergy/AdvReac Type Severity Reaction Status Date / Time No Known Allergies Allergy Verified 06/26/22 20:43 Review of Systems ROS Statement: Those systems with pertinent positive or pertinent negative responses have been documented in the HPI. ROS Other: All systems not noted in ROS Statement are negative. Past Medical History Past Medical History: Chest Pain / Angina, Heart Failure, Diabetes Mellitus, Hyperlipidemia, Hypertension, Myocardial Infarction ([place]), Osteoarthritis (OA), Vascular Disorder Additional Past Medical History / Comment(s): pvd,bronchitis,kidney stone,arthritis bilateral hands fingers and R ankle, n/t bilateral feet, PAD, recent admission for severe pain jeanmarie lower extremities & fever, unable to weight bear due to pain Last Myocardial Infarction Date:: 02/2014 History of Any Multi-Drug Resistant Organisms: None Reported Past Surgical History: Adenoidectomy, AICD, Appendectomy, Heart Catheterization, Orthopedic Surgery, Pacemaker, Tonsillectomy Additional Past Surgical History / Comment(s): Abdominal aortogram with runoff, Redo bilateral femfem crossover graft in March in [facility]. Other SX: left leg arterial bypass, pacemaker/defibrillator, sx lt hand, rt foot,cataracts,ABD AORTAGRAM,LEFT ARTERIAL ANGIOGRAM, LEFT ILIAC STENTING 09/05/15, R ankle surgery. Past Anesthesia/Blood Transfusion Reactions: Postoperative Nausea & Vomiting (PONV) Type of Cardiac Device: Permanent Pacemaker, AICD Device Placement Date:: february 2014 Past Psychological History: No Psychological Hx Reported Smoking Status: Former smoker Past Alcohol Use History: None Reported Past Drug Use History: None Reported - Past Family History Mother Family Medical History: Cancer Sister(s) Family Medical History: Cancer General Exam Limitations: no limitations (Well-developed, well-nourished male in no acute distress. Initial temperature 98.1, pulse 99, respirations 18, blood pressure 153/80, pulse ox 97% on room air) General appearance: alert, in no apparent distress ENT exam: Present: normal exam, normal oropharynx, mucous membranes moist Expanded Mouth exam: Present: tongue normal Respiratory exam: Present: normal lung sounds bilaterally. Absent: respiratory distress, wheezes, rales, rhonchi, stridor, chest wall tenderness Cardiovascular Exam: Present: regular rate, normal rhythm, normal heart sounds. Absent: systolic murmur, diastolic murmur, rubs, gallop, clicks GI/Abdominal exam: Present: soft, normal bowel sounds. Absent: distended, tenderness, guarding, rebound, rigid Left Shoulder Exam: Present: normal inspection, full ROM Upper Arm exam: Present: normal inspection, full ROM Elbow exam: Present: normal inspection, full ROM Forearm Wrist exam: Present: tenderness, swelling, erythema (Erythema on the dorsal surface of the right forearm extending the length of the forearm. There is a punctate center scab which patient states is the location of the bite. There is no localized fluctuant area.). Absent: pain with axial thumb loading Hand Wrist exam: Present: swelling (Mild swelling of the dorsal surface of the hand.). Absent: erythema Neuro motor exam: Present: wrist extension intact, thumb opposition intact, fingers 2-5 abduction intact Vascular: Present: normal capillary refill, radial pulse, brachial pulse. Absent: vascular compromise, Pallo Neurological exam: Present: alert, oriented X3, CN II-XII intact Psychiatric exam: Present: normal affect, normal mood Skin exam: Present: warm, dry, intact, normal color. Absent: rash Course Vital Signs 06/26/22 20:40 Temperature 98.1 F Pulse Rate 99 Respiratory 18 Rate Blood Pressure 153/80 O2 Sat by Pulse 97 Oximetry - Reevaluation(s) Reevaluation #1: 06/26/22 21:50 Prior 10 discharge, patient requests an injection of Benadryl due to mild itching discomfort. Though he had taken a dose at home this is felt to be a reasonable request. Medical Decision Making - Medical Decision Making This is a 66-year-old male with a past medical history of hypertension, previous NE, and type 2 diabetes who presents to the emergency department for evaluation of left forearm redness he attributes to an insect or spider bite. Upon exam, patient is well-appearing and in no acute distress. Vital signs are stable. He is afebrile. He does have an erythematous left forearm consistent with a cellulitis extending from the punctate center. Patient is given a dose of Keflex and this will be prescribed to him. Additionally, given the patient endorses pruritus, IM Benadryl was given as requested. He is not having any systemic symptoms such as shortness of breath, angioedema, wheezing, or nausea and vomiting. He'll be discharged home to follow up with his PCP for recheck in 48 hours. Return parameters were discussed in detail. Patient verbalizes understanding and agrees with this plan. Attending: Brennon. Disposition Clinical Impression: Cellulitis of left forearm Disposition: HOME SELF-CARE Condition: Stable Instructions (If sedation given, give patient instructions): Cellulitis (ED) Additional Instructions: Take full course of antibiotic as prescribed. May take Tylenol if needed for discomfort. Keep arm elevated while at rest. Follow-up with your PCP for a recheck in 48-72 hours. Return to the emergency department with any new, worsening, or concerning symptoms. Prescriptions: Cephalexin [Keflex] 500 mg PO Q6HR 5 Days #20 cap Is patient prescribed a controlled substance at d/c from ED?: No Referrals: lEizabeth Baltazar MD [Primary Care Provider] - 1-2 days Time of Disposition: 21:55
== END 2022-06-26 22:17 | disposition home or self-care (01) ==
LOC: EC 20:14
DX: L03.114 Cellulitis of left upper limb (principal); E78.5 Hyperlipidemia, unspecified; E11.9 Type 2 diabetes mellitus without complications; I10 Essential (primary) hypertension; Z87.891 Personal history of nicotine dependence
CPT/HCPCS: 99282; 96372; J1200

== ENCOUNTER → 2022-07-02 | Outpatient (CLI) | payer MEDICARE, OTHER ==
--- NOTE | 2022-07-02 11:42 | US ---
EXAMINATION TYPE: US venous doppler duplex UE LT DATE OF EXAM: 07/02/2022 COMPARISON: NONE CLINICAL HISTORY: [id number] SWELLING OF LEFT UPPER LIMB. bite with draining at the posterior aspect of th e mid forearm x 2 wks SIDE PERFORMED: left Left Arm: negative for LUE dvt; scanned over the pt's area of draining; SQ edema with small superfici al fluid collection IMPRESSION: No evidence for DVT.
== END | disposition home or self-care (01) ==
LOC: RADUSWWP 10:14
PROVIDERS: ATTEND Internal Medicine
DX: R22.32 Localized swelling, mass and lump, left upper limb (principal)

== ENCOUNTER → 2023-05-29 | Outpatient (CLI) | payer MEDICARE, OTHER ==
[2023-05-29 16:31] LABS: BUN/Creat Ratio 22.46 Ratio (12.00-20.00); Blood Urea Nitrogen 29.2 mg/dL (9.0-27.0); Calcium 10.5 mg/dL (8.7-10.3); Carbon Dioxide 27.2 mmol/L (21.6-31.8); Chloride 101 mmol/L (96-109); Glucose 159 mg/dL (70-110); Potassium 5.1 mmol/L (3.5-5.5); Sodium 139 mmol/L (135-145)
[2023-05-29 16:32] LABS: Basophils # (A) 0.12 X 10*3/uL (0.00-0.10); Basophils % (A) 1.2 %; Eosinophils # (A) 0.66 X 10*3/uL (0.04-0.35); Eosinophils % (A) 6.8 %; HCT 44.2 % (39.6-50.0); HGB 13.8 d/dL (12.0-15.0); Lymphocytes # (A) 2.77 X 10*3/uL (0.90-5.00); Lymphocytes % (A) 28.4 %; MCH 27.3 pg (27.0-32.0); MCHC 31.2 d/dL (32.0-37.0); MCV 87.4 FL (80.0-97.0); Mean Platelet Volume 10.9 FL (9.5-12.2); Monocytes # (A) 0.64 X 10*3/uL (0.20-1.00); Monocytes % (A) 6.6 %; NRBC Per 100 WBC 0 X 10*3/uL (0.00-0.01); Neutrophils # (A) 5.43 X 10*3/uL (1.80-7.70); Neutrophils % (A) 55.6 %; Platelet Count 282 X 10*3/uL (140-440); RBC 5.06 X 10*6/uL (4.40-5.60); RDW 13.5 % (11.5-14.5); WBC 9.76 X 10*3/uL (4.50-10.00)
== END | disposition home or self-care (01) ==
LOC: LABPAT 09:30
PROVIDERS: ATTEND Urology
DX: Z01.812 Encounter for preprocedural laboratory examination (principal); N35.912 Unspecified bulbous urethral stricture, male
CPT/HCPCS: 80048; 85025

== ENCOUNTER 2023-06-05 06:50 | Day surgery (SDC) | payer MEDICARE, OTHER ==
[2023-05-30 09:12] VITALS: BMI 33.2
[~2023-06-05 06:50] MED LIST changes: -ALPRAZolam 0.25 MG TAB PO PRN; -ASPIRIN 325 MG TAB PO PRN; +DEXAMETHASONE SOD PHOSPHATE 4 MG/ML 1 ML VIAL IV ONE; +LACTATED RINGERS 1,000 ML IV SCH; -SODIUM CHLORIDE 0.9% 1,000 ML in EMPTY BAG 1 BAG IV ONE; +fentaNYL (PF) 50 MCG/ML 2 ML AMP IV PRN
--- NOTE | 2023-06-05 07:10 | P.GSHP ---
History of Present Illness H&P Date: 06/05/23 Chief Complaint: Weak urinary stream The patient is a 67-year-old white male who underwent a TURP in 2017. He now presents with a weak urinary stream but empties his bladder adequately. Cystoscopy has shown a bulbous urethral stricture measuring approximately 12- [place] in diameter. - Cardiovascular Cardiovascular: Reports high blood pressure - Genitourinary (Male) Genitourinary: Reports urinary hesitancy, Denies dysuria, Denies hematuria Past Medical History Past Medical History: Chest Pain / Angina, Heart Failure, Diabetes Mellitus, Hyperlipidemia, Hypertension, Myocardial Infarction ([place]), Osteoarthritis (OA), Vascular Disorder Additional Past Medical History / Comment(s): PAD, PVD, urinary stricture Last Myocardial Infarction Date:: 02/2014 History of Any Multi-Drug Resistant Organisms: MRSA Date of last positivie culture/infection: 07/02/22 MDRO Source:: Left Arm Past Surgical History: Adenoidectomy, AICD, Appendectomy, Heart Catheterization, Orthopedic Surgery, Pacemaker, Tonsillectomy Additional Past Surgical History / Comment(s): Abdominal aortogram with runoff, Redo bilateral femerol crossover graft in March in [facility]. Other SX: left leg arterial bypass, permanent pacemaker/defibrillator, sx lt hand, rt foot, cataracts, ABD AORTAGRAM, LEFT ARTERIAL ANGIOGRAM, LEFT ILIAC STENTING 09/05/15, R ankle surgery. Past Anesthesia/Blood Transfusion Reactions: Postoperative Nausea & Vomiting (PONV) Type of Cardiac Device: Permanent Pacemaker, AICD Device Placement Date:: February 2014 Smoking Status: Former smoker - Past Family History Mother Family Medical History: Cancer Sister(s) Family Medical History: Cancer Medications and Allergies Home Medications Medication Instructions Recorded Confirmed Type Clopidogrel [Plavix] 75 mg PO DAILY #30 tab 09/07/15 05/30/23 Rx Fenofibrate Nanocrystallized 145 mg PO DAILY 01/16/21 05/30/23 History [Fenofibrate] Glimepiride [Amaryl] 1 mg PO BID 01/16/21 05/30/23 History Metoprolol Succinate (ER) [Toprol 100 mg PO DAILY 01/16/21 05/30/23 History XL] Apixaban [Eliquis] 2.5 mg PO BID #0 tab 02/24/21 05/30/23 Rx Atorvastatin Calcium [Lipitor] 80 mg PO HS 05/17/21 05/30/23 History Spironolactone [Aldactone] 25 mg PO DAILY 05/17/21 05/30/23 History Tamsulosin HCl [Flomax] 0.4 mg PO DAILY 05/17/21 05/30/23 History Acetaminophen/Diphenhydramine 2 tab PO HS 05/21/21 05/30/23 History [Tylenol PM 500-25mg] metFORMIN HCL [Glucophage] 1,000 mg PO BID 06/18/21 05/30/23 History Furosemide [Lasix] 40 mg PO BID 07/10/22 05/30/23 History Magnesium Oxide 400 mg PO BID 07/10/22 05/30/23 History Omeprazole 40 mg PO DAILY 07/10/22 05/30/23 History HYDROcodone/APAP 10-325MG [[place] 1 tab PO TID 05/30/23 05/30/23 History 10-325] Insulin Aspart [NovoLOG Flexpen] 6 units SQ TID 05/30/23 05/30/23 History Insulin Glargine [Lantus Vial] 45 units SQ HS 05/30/23 05/30/23 History Allergies Allergy/AdvReac Type Severity Reaction Status Date / Time No Known Allergies Allergy Verified 05/30/23 08:41 Surgical - Exam - General well developed, well nourished, no distress - Respiratory normal respiratory effort - Abdomen Abdomen: soft, non tender, no guarding, no rigid, no rebound - Genitourinary normal penis with no external lesions, testicles non-tender - Psychiatric oriented to time, oriented to person, oriented to place, speech is normal, memory intact Assessment and Plan Assessment: The patient has a bulbous urethral stricture. He was offered the options of observation, urethral dilation, and direct visual internal urethrotomy (DVIU). (1) Unspecified bulbous urethral stricture, male Current Visit: Yes Status: Acute Code(s): N35.912 - UNSPECIFIED BULBOUS URETHRAL STRICTURE, MALE SNOMED Code(s): 3597535220 Plan: Cystoscopy, DVIU. The procedures been reviewed in detail with the patient. He has been made aware of potential risks, which include anesthesia, bleeding, and infection. He is also aware that his urethral stricture may recur.
[2023-06-05] MEDS: ONDANSETRON 4 MG/2 ML VIAL IVP ONE ×2 (07:56→08:22)
[2023-06-05 07:59] LABS: Glucose,Whole Blood 237 mg/dL (70-110)
[2023-06-05] MEDS ORDERED: INSULIN ASPART (NovoLOG) 100 UNIT/ML VIAL SQ ONE (08:22)
[2023-06-05] MEDS ORDERED: FAMOTIDINE 20 MG/2 ML VIAL IVP ONE (08:26)
[2023-06-05] MEDS ORDERED: ARTIFICIAL TEARS-HYPROMELLOSE DROPS 15 ML BTL BOTH EYES STA (08:29)
[2023-06-05] MEDS ORDERED: fentaNYL (PF) 50 MCG/ML 2 ML AMP ONE (09:31)
[2023-06-05] MEDS ORDERED: SUCCINYLCHOLINE CHLORIDE 200 MG/10 ML VIAL IV ONE (09:31)
[2023-06-05] MEDS ORDERED: LIDOCAINE 2% INJ 20 MG/ML (2 ML VIAL) ONE (09:31)
[2023-06-05] MEDS ORDERED: MIDAZOLAM 2 MG/2 ML VIAL ONE (09:31)
[2023-06-05] MEDS ORDERED: KETOROLAC 15 MG/ML 1 ML VIAL ONE (09:31)
[2023-06-05] MEDS ORDERED: PROPOFOL 10 MG/ML 20 ML VIAL IV ONE (09:31)
--- NOTE | 2023-06-05 10:08 | P.OP ---
Date of Procedure: 06/05/23 Preoperative Diagnosis: Urethral stricture Postoperative Diagnosis: Urethral stricture, vesical neck contracture Procedure(s) Performed: Cystoscopy, direct visual internal urethrotomy (DVIU), transurethral incision of vesical neck contracture, fulguration of bleeders Anesthesia: [place] Surgeon: Gilberto Cordova Estimated Blood Loss (ml): 5 IV fluids (ml): 200 Pathology: none sent Condition: stable Disposition: PACU Indications for Procedure: The patient is a 67-year-old white male who underwent a TURP in 2017. He now presents with a weak urinary stream but empties his bladder adequately. Cystoscopy has shown a bulbous urethral stricture measuring approximately 12- [place] in diameter. Operative Findings: Proximal bulbous urethral stricture. Vesical neck contracture. Description of Procedure: The patient was taken to the operating room and placed in the dorsolithotomy position, with his legs supported in Ge stirrups. The external genitalia was prepped and draped sterilely. The 0 lens was used to advance the visual urethrotome into the urethra. A stricture was encountered within the bulbous urethra, measuring approximately 12 [place] in caliber. The length of the stricture was approximately 1 cm. Using the half-sage blade, the stricture was incised at the 12 o'clock position. The incision was carried through the full- thickness of the stricture. A second stricture was noted just proximal to this, just distal to the external urinary sphincter. This was also incised at the 12 o'clock position, and the visual urethrotome was then advanced into the prostatic urethra, which showed evidence of a previous TURP. A vesical neck contracture was noted, through which the visual urethrotome could not be advanced. The majority of the scarring was posterior, and therefore the visual urethrotome was used to incise the vesical neck at the 6 o'clock position. It was then possible to advance the visual urethrotome into the bladder. Cystoscopy was performed. The 30 lens was used to introduce the 19-Scottish start cystoscopic sheath through the urethra and into the bladder under direct vision. The bladder was examined in its entirety. Both ureteral orifices were of normal anatomic location and configuration, and clear urine effluxed from both. No tumors or foreign bodies were seen. Trabeculation of the bladder was noted. It was noted that the incision of the vesical neck contracture extended somewhat subtrigonal, and several small bleeders were noted. These were controlled with electrocautery using the Bug[place] electrode, attaining excellent hemostasis. The cystoscope was removed, and an 18-Scottish coud-tip [place] catheter was advanced into the bladder without difficulty. The return was clear. The patient tolerated the procedure well was taken to the recovery room in stable condition.
[2023-06-05 10:10] LABS: Glucose,Whole Blood 210 mg/dL (70-110)
[2023-06-05 10:12] VITALS: TEMP 96.8
[2023-06-05 11:31] VITALS: RESP 20
[2023-06-05 12:13] VITALS: BP 178/74; PULSE 64
== END 2023-06-05 12:30 | disposition home or self-care (01) ==
LOC: OR 06:50
PROVIDERS: ATTEND Urology
DX: N35.912 Unspecified bulbous urethral stricture, male (principal); N32.0 Bladder-neck obstruction; I11.9 Hypertensive heart disease without heart failure; I50.9 Heart failure, unspecified; E78.5 Hyperlipidemia, unspecified; E11.36 Type 2 diabetes mellitus with diabetic cataract; M19.90 Unspecified osteoarthritis, unspecified site; Z90.89 Acquired absence of other organs; Z90.49 Acquired absence of other specified parts of digestive tract; Z87.891 Personal history of nicotine dependence; Z79.899 Other long term (current) drug therapy
CPT/HCPCS: 52214; J2250; J0330; J0690; J2405; J3010; J1885; J2704; J2001

== ENCOUNTER 2024-02-13 12:54 | Emergency (ER) | payer MEDICARE, OTHER ==
[2024-02-13 13:01] LABS: Glucose,Whole Blood 511 mg/dL (70-110)
[2024-02-13] MEDS: INSULIN ASPART (NovoLOG) 100 UNIT/ML VIAL SQ STA (13:42)
[2024-02-13] MEDS: SODIUM CHLORIDE 0.9% 500 ML 500 ML IV STA (13:42)
[2024-02-13 13:53] LABS: Basophils # (A) 0.1 k/uL (0-0.2); Basophils % (A) 1 %; Eosinophils # (A) 0.4 k/uL (0-0.7); Eosinophils % (A) 5 %; HCT 41.4 % (39.0-53.0); HGB 13.2 gm/dL (13.0-17.5); Hypochromasia Slight; Lymphocytes # (A) 1.8 k/uL (1.0-4.8); Lymphocytes % (A) 26 %; MCH 27.3 pg (25.0-35.0); MCHC 31.8 g/dL (31.0-37.0); MCV 85.9 fL (80.0-100.0); Mean Platelet Volume 8.3; Monocytes # (A) 0.3 k/uL (0-1.0); Monocytes % (A) 4 %; Neutrophils # (A) 4.5 k/uL (1.3-7.7); Neutrophils % (A) 62 %; Platelet Count 225 k/uL (150-450); RBC 4.82 m/uL (4.30-5.90); RDW 14.2 % (11.5-15.5); WBC 7.2 k/uL (3.8-10.6)
--- NOTE | 2024-02-13 14:02 | ED ---
General Adult HPI - General Chief complaint: Recheck/Abnormal Lab/Rx Stated complaint: Medication refill Time Seen by Provider: 02/13/24 13:21 Source: patient, RN notes reviewed, old records reviewed Mode of arrival: ambulatory - History of Present Illness Initial comments: Is a 68-year-old male who presents emergency department complaining of high blood sugars. Patient has been without his Lantus and NovoLog at home for the last 2 weeks as he ran out of his prescription. Does see his new PCP on Friday. Has noticed that his sugars have been elevated in the 4-5 100s over that period of time. Weber that he might be able to get a prescription for his insulin wh ich is why presents for further evaluation at this time. Has no other acute complaints at this time. Denies any diarrhea, nausea, vomiting. Sugar was over 500 in triage. Presents for further evaluation. - Related Data Home Medications Medication Instructions Recorded Confirmed Fenofibrate Nanocrystallized 145 mg PO DAILY 01/16/21 06/05/23 [Fenofibrate] Glimepiride [Amaryl] 1 mg PO BID 01/16/21 06/05/23 Metoprolol Succinate (ER) [Toprol 100 mg PO DAILY 01/16/21 05/30/23 XL] Atorvastatin Calcium [Lipitor] 80 mg PO HS 05/17/21 06/05/23 Spironolactone [Aldactone] 25 mg PO DAILY 05/17/21 06/05/23 Tamsulosin HCl [Flomax] 0.4 mg PO DAILY 05/17/21 06/05/23 Acetaminophen/Diphenhydramine 2 tab PO HS 05/21/21 06/05/23 [Tylenol PM 500-25mg] metFORMIN HCL [Glucophage] 1,000 mg PO BID 06/18/21 06/05/23 Furosemide [Lasix] 40 mg PO BID 07/10/22 06/05/23 Magnesium Oxide 400 mg PO BID 07/10/22 05/30/23 Omeprazole 40 mg PO DAILY 07/10/22 05/30/23 HYDROcodone/APAP 10-325MG [[place] 1 tab PO TID 05/30/23 06/05/23 10-325] Insulin Aspart [NovoLOG Flexpen] 6 units SQ TID 05/30/23 05/30/23 Insulin Glargine [Lantus Vial] 45 units SQ HS 05/30/23 05/30/23 Previous Rx's Medication Instructions Recorded Clopidogrel [Plavix] 75 mg PO DAILY #30 tab 09/07/15 Apixaban [Eliquis] 2.5 mg PO BID #0 tab 02/24/21 Insulin Aspart [NovoLOG Flexpen] 6 units SQ TID #1 each 02/13/24 Insulin Glargine [Lantus Vial] 50 unit SQ HS #10 ml 02/13/24 Allergies Allergy/AdvReac Type Severity Reaction Status Date / Time No Known Allergies Allergy Verified 02/13/24 13:02 Review of Systems ROS Statement: Those systems with pertinent positive or pertinent negative responses have been documented in the HPI. Review of Systems: CONST: Denies fever EYES: Denies blurry vision ENT: Denies nasal congestion C/V: Denies Chest pain RESP: Denies shortness of breath GI: Denies abdominal pain : Denies dysuria SKIN: Denies rash. MSK: Denies joint pain. NEURO: Denies headache ROS Other: All systems not noted in ROS Statement are negative. Past Medical History Past Medical History: Coronary Artery Disease (CAD), Chest Pain / Angina, D iabetes Mellitus, Hyperlipidemia, Hypertension Additional Past Medical History / Comment(s): PAD, PVD Last Myocardial Infarction Date:: 02/2014 History of Any Multi-Drug Resistant Organisms: MRSA Date of last positivie culture/infection: 07/02/22 MDRO Source:: Left Arm Past Surgical History: Pacemaker Additional Past Surgical History / Comment(s): Abdominal aortogram with runoff, Redo bilateral femfem crossover graft in March in [facility]. Other SX: left leg arterial bypass, pacemaker/defibrillator, sx lt hand, rt f oot,cataracts,ABD AORTAGRAM,LEFT ARTERIAL ANGIOGRAM, LEFT ILIAC STENTING 09/05/15, R ankle surgery. Past Anesthesia/Blood Transfusion Reactions: No Reported Reaction, Postoperative Nausea & Vomiting (PONV) Type of Cardiac Device: Permanent Pacemaker, AICD Device Placement Date:: February 2014 Past Psychological History: No Psychological Hx Reported Smoking Status: Former smoker Past Alcohol Use History: None Reported Past Drug Use History: None Reported - Past Family History Mother Family Medical History: Cancer Sister(s) Family Medical History: Cancer General Exam - General Exam Comments Initial Comments: General: Appears in no acute distress. HEAD: Normal with no signs of head trauma. EYES: PERRLA, EOMI, conjunctiva normal, no discharge. ENT: Hearing grossly intact, normal oropharynx. RESPIRATORY: Clear breath sounds bilaterally. No wheezes, rales, or rhonchi. C/V: Regular rate and rhythm. S1 and S2 auscultated, no edema, peripheral pulses 2+ and intact throughout ABD: Abd is soft, nontender, nondistended EXT: Normal range of motion, no obvious deformity SKIN: No rashes or lesions observed on exposed skin. NEURO: Alert and oriented x 4. Course Vital Signs 02/13/24 12:57 Temperature 97.4 F L Pulse Rate 80 Respiratory 18 Rate Blood Pressure 183/80 O2 Sat by Pulse 97 Oximetry Medical Decision Making - Medical Decision Making Was pt. sent in by a medical professional or institution (, PA, REGIONAL CLINICAL DIRECTOR, urgent care, hospital, or jail...) When possible be specific @ -No Did you speak to anyone other than the patient for history (EMS, parent, family, police, friend...)? What history was obtained from this source @ -No Did you review nursing and triage notes (agree or disagree)? Why? @ -I reviewed and agree with nursing and triage notes Were old charts reviewed (outside hosp., previous admission, EMS record, old EKG, old radiological studies, urgent care reports/EKG's, jail records)? Report findings @ -No old charts were reviewed Differential Diagnosis (chest pain, altered mental status, abdominal pain women, abdominal pain men, vaginal bleeding, weakness, fever, dyspnea, syncope, headache, dizziness, GI bleed, back pain, seizure, CVA, palpatations, mental health, musculoskeletal)? @ -Hyperglycemia, medication noncompliance, medication refill, dehydration, DKA. This list is not all inclusive. EKG interpreted by me (3pts min.). @ -None done X-rays interpreted by me (1pt min.). @ -None done CT interpreted by me (1pt min.). @ -None done U/S interpreted by me (1pt. min.). @ -None done What testing was considered but not performed or refused? (CT, X-rays, U/S, labs)? Why? @ -None What meds were considered but not given or refused? Why? @ -None Did you discuss the management of the patient with other professionals (professionals i.e. , PA, REGIONAL CLINICAL DIRECTOR, lab, RT, psych nurse, social media strategist, watch repair technician, teacher, parking control officer, disability case manager)? Give summary @ -No Was smoking cessation discussed for >3mins.? @ -No Was critical care preformed (if so, how long)? @ -No Were there social determinants of health that impacted care today? How? (Homelessness, low income, unemployed, alcoholism, drug addiction, transportation, low edu. Level, literacy, decrease access to med. care, intermediate, rehab)? @ -No Was there de-escalation of care discussed even if they declined (Discuss DNR or withdrawal of care, Hospice)? DNR status @ -No What co-morbidities impacted this encounter? (DM, HTN, Smoking, COPD, CAD, Cancer, CVA, ARF, Chemo, Hep., AIDS, mental health diagnosis, sleep apnea, morbid obesity)? @ -None Was patient admitted / discharged? Hospital course, mention meds given and route, prescriptions, significant lab abnormalities, going to OR and other pertinent info. @ -Patient presents to the ER with elevated blood sugars in the setting of insulin-dependent diabetes not on insulin lately. Ran out of this prescription 2 weeks ago. Is seeking medication refill. Sugars have been elevated in the 500s at home. Has no other acute complaints. Vital signs are within acceptable limits. We will obtain basic labs and screening for DKA. Patient will be given a small liter fluid bolus as well as 12 units of NovoLog. Patient was in agreement this plan. Vital signs are within acceptable limits. Patient's laboratory studies remarkable for hyperglycemia but no evidence of DKA. Acetone negative. On reevaluation following bolus and insulin, patient's blood sugar remains elevated for 433. I discussed with the patient and we will repeat Accu-Chek after 1 additional dose of insulin. Blood sugars improved. He will be discharged home with prescriptions for his insulin. He was in agreement this plan. I will provide the patient with a prescription for NovoLog, Lantus. I instructed the patient to follow up with their PCP in the next 1-3 days.. I explained that the patient should return to the emergency department if they experience any worsening symptoms. Strict return precautions were discussed with the patient. The patient expressed understanding of these instructions. I answered all questions that the patient had. The patient was discharged home in good condition with their prescriptions and follow up information. Undiagnosed new problem with uncertain prognosis? @ -No Drug Therapy requiring intensive monitoring for toxicity (Heparin, Nitro, Insulin, Cardizem)? @ -No Were any procedures done? @ -No Diagnosis/symptom? @ -Hyperglycemia, due to medication noncompliance has run out of prescription Acute, or Chronic, or Acute on Chronic? @ -Acute Uncomplicated (without systemic symptoms) or Complicated (systemic symptoms)? @ -Uncomplicated Side effects of treatment? @ -None Exacerbation, Progression, or Severe Exacerbation] @ -No Poses a threat to life or bodily function? @ -Unlikely - Lab Data Result diagrams: 02/13/24 13:39 02/13/24 13:39 Lab Results 02/13/24 02/13/24 02/13/24 Range/Units 13:00 13:39 13:39 WBC 7.2 (3.8-10.6) k/uL RBC 4.82 (4.30-5.90) m/uL Hgb 13.2 (13.0-17.5) gm/dL Hct 41.4 (39.0-53.0) % MCV 85.9 (80.0-100.0) fL MCH 27.3 (25.0-35.0) pg MCHC 31.8 (31.0-37.0) g/dL RDW 14.2 (11.5-15.5) % Plt Count 225 (150-450) k/uL MPV 8.3 Neutrophils % 62 % Lymphocytes % 26 % Monocytes % 4 % Eosinophils % 5 % Basophils % 1 % Neutrophils # 4.5 (1.3-7.7) k/uL Lymphocytes # 1.8 (1.0-4.8) k/uL Monocytes # 0.3 (0-1.0) k/uL Eosinophils # 0.4 (0-0.7) k/uL Basophils # 0.1 (0-0.2) k/uL Hypochromasia Slight Sodium (137-145) mmol/L Potassium (3.5-5.1) mmol/L Chloride (98-107) mmol/L Carbon Dioxide (22-30) mmol/L Anion Gap mmol/L BUN (9-20) mg/dL Creatinine (0.66-1.25) mg/dL Est GFR (CKD-EPI)AfAm (>60 ml/min/1.73 sqM) Est GFR (CKD-EPI)NonAf (>60 ml/min/1.73 sqM) Glucose (74-99) mg/dL POC Glucose (mg/dL) 511 H (70-110) mg/dL POC Glu Underwriting Manager ID Mary Ramirez Calcium (8.4-10.2) mg/dL Total Bilirubin (0.2-1.3) mg/dL AST (17-59) U/L ALT (4-49) U/L Alkaline Phosphatase (38-126) U/L Total Protein (6.3-8.2) g/dL Albumin (3.5-5.0) g/dL Urine Color Colorless Urine Appearance Clear (Clear) Urine pH 5.0 (5.0-8.0) Ur Specific [place] 1.021 (1.001-1.035) Urine Protein Negative (Negative) Urine Glucose (UA) 4+ H (Negative) Urine Ketones Negative (Negative) Urine Blood Negative (Negative) Urine Nitrite Negative (Negative) Urine Bilirubin Negative (Negative) Urine Urobilinogen <2.0 (<2.0) mg/dL Ur Leukocyte Esterase Negative (Negative) Acetone, Qual (Negative) 02/13/24 02/13/24 Range/Units 13:39 14:29 WBC (3.8-10.6) k/uL RBC (4.30-5.90) m/uL Hgb (13.0-17.5) gm/dL Hct (39.0-53.0) % MCV (80.0-100.0) fL MCH (25.0-35.0) pg MCHC (31.0-37.0) g/dL RDW (11.5-15.5) % Plt Count (150-450) k/uL MPV Neutrophils % % Lymphocytes % % Monocytes % % Eosinophils % % Basophils % % Neutrophils # (1.3-7.7) k/uL Lymphocytes # (1.0-4.8) k/uL Monocytes # (0-1.0) k/uL Eosinophils # (0-0.7) k/uL Basophils # (0-0.2) k/uL Hypochromasia Sodium 134 L (137-145) mmol/L Potassium 4.5 (3.5-5.1) mmol/L Chloride 99 (98-107) mmol/L Carbon Dioxide 22 (22-30) mmol/L Anion Gap 13 mmol/L BUN 32 H (9-20) mg/dL Creatinine 1.15 (0.66-1.25) mg/dL Est GFR (CKD-EPI)AfAm 75 (>60 ml/min/1.73 sqM) Est GFR (CKD-EPI)NonAf 65 (>60 ml/min/1.73 sqM) Glucose 495 H (74-99) mg/dL POC Glucose (mg/dL) 433 H (70-110) mg/dL POC Glu Underwriting Manager ID Fátima Sierra Calcium 8.9 (8.4-10.2) mg/dL Total Bilirubin 0.5 (0.2-1.3) mg/dL AST 26 (17-59) U/L ALT 29 (4-49) U/L Alkaline Phosphatase 82 (38-126) U/L Total Protein 6.6 (6.3-8.2) g/dL Albumin 4.1 (3.5-5.0) g/dL Urine Color Urine Appearance (Clear) Urine pH (5.0-8.0) Ur Specific [place] (1.001-1.035) Urine Protein (Negative) Urine Glucose (UA) (Negative) Urine Ketones (Negative) Urine Blood (Negative) Urine Nitrite (Negative) Urine Bilirubin (Negative) Urine Urobilinogen (<2.0) mg/dL Ur Leukocyte Esterase (Negative) Acetone, Qual Negative (Negative) Disposition Clinical Impression: Hyperglycemia, Encounter for medication refill, Noncompliance with medication regimen Disposition: HOME SELF-CARE Condition: Good Instructions (If sedation given, give patient instructions): Type 2 Diabetes in the Older Adult (ED) Prescriptions: Insulin Glargine [Lantus Vial] 50 unit SQ HS #10 ml Insulin Aspart [NovoLOG Flexpen] 6 units SQ TID #1 each Is patient prescribed a controlled substance at d/c from ED?: No Referrals: Rinku Jarvis MD [Primary Care Provider] - 1-2 days Time of Disposition: 15:00
[2024-02-13 14:07] LABS: ALT 29 U/L (4-49); AST 26 U/L (17-59); African American GFR (CKD) 75 (>60 ml/min/1.73 sqM); Albumin 4.1 g/dL (3.5-5.0); Alkaline Phosphatase 82 U/L (38-126); Anion Gap 13 mmol/L; Blood Urea Nitrogen 32 mg/dL (9-20); Calcium 8.9 mg/dL (8.4-10.2); Carbon Dioxide 22 mmol/L (22-30); Chloride 99 mmol/L (98-107); Glucose 495 mg/dL (74-99); Non-African American GFR(CKD) 65 (>60 ml/min/1.73 sqM); Potassium 4.5 mmol/L (3.5-5.1); Sodium 134 mmol/L (137-145); Total Bilirubin 0.5 mg/dL (0.2-1.3); Total Protein 6.6 g/dL (6.3-8.2)
[2024-02-13 14:15] LABS: Appearance,Urine Clear (Clear); Bilirubin,Urine Negative (Negative); Blood,Urine Negative (Negative); Color,Urine Colorless; Glucose,Urine (UA) 4+ (Negative); Ketones,Urine Negative (Negative); Leukocyte Esterase,Urine Negative (Negative); Nitrite,Urine Negative (Negative); Protein,Urine Negative (Negative); Specific Gravity,Urine 1.021 (1.001-1.035); Urobilinogen,Urine <2.0 mg/dL (<2.0)
[2024-02-13 14:18] VITALS: RESP 18
[2024-02-13 14:31] LABS: Glucose,Whole Blood 433 mg/dL (70-110)
[2024-02-13] MEDS: INSULIN ASPART (NovoLOG) 100 UNIT/ML VIAL SQ ONE ×2 (14:43→15:22)
[2024-02-13 15:18] LABS: Glucose,Whole Blood 379 mg/dL (70-110)
[2024-02-13 16:41] LABS: Glucose,Whole Blood 237 mg/dL (70-110)
[2024-02-13 17:14] VITALS: BP 156/87; PULSE 76; TEMP 98.2
== END 2024-02-13 16:53 | disposition home or self-care (01) ==
LOC: EC 12:54
DX: E11.65 Type 2 diabetes mellitus with hyperglycemia (principal); E11.51 Type 2 diabetes mellitus with diabetic peripheral angiopathy without gangrene; Z91.148 Patient's other noncompliance with medication regimen for other reason; Z76.0 Encounter for issue of repeat prescription; Z79.84 Long term (current) use of oral hypoglycemic drugs; Z87.891 Personal history of nicotine dependence
CPT/HCPCS: 36415; 80053; 81003; 82009; 85025; 99284

== ENCOUNTER 2024-05-12 16:18 | Inpatient (IN) | payer MEDICARE, OTHER ==
--- NOTE | 2024-05-12 17:08 | ED ---
Weakness HPI - General Chief complaint: Weakness Stated complaint: poss heat stroke Time Seen by Provider: 05/12/24 17:06 Source: patient, RN notes reviewed, old records reviewed Mode of arrival: ambulatory Limitations: no limitations - History of Present Illness Initial comments: This is a 68-year-old male with significant weakness persistent weakness here in the emergency room patient has severe fever weakness tremors or shakes. Patient admits to fever nausea and some diarrhea MD Complaint: generalized weakness, lack of energy, difficulty walking -: days(s) Location: generalized Severity scale (1-10): 7 Consistency: constant Improves with: none Worsens with: none Associated Symptoms: confusion, nausea/vomiting - Related Data Home Medications Medication Instructions Recorded Confirmed Fenofibrate Nanocrystallized 145 mg PO DAILY 01/16/21 05/12/24 [Fenofibrate] Glimepiride [Amaryl] 1 mg PO BID 01/16/21 05/12/24 Metoprolol Succinate (ER) [Toprol 100 mg PO DAILY 01/16/21 05/12/24 XL] Atorvastatin Calcium [Lipitor] 80 mg PO HS 05/17/21 05/12/24 Spironolactone [Aldactone] 25 mg PO DAILY 05/17/21 05/12/24 Tamsulosin HCl [Flomax] 0.4 mg PO DAILY 05/17/21 05/12/24 Furosemide [Lasix] 40 mg PO BID 07/10/22 05/12/24 Omeprazole 40 mg PO DAILY 07/10/22 05/12/24 Insulin Glargine [Lantus Vial] 25 units SQ HS 05/30/23 05/12/24 Semaglutide [Ozempic] 0.5 mg SQ WE 05/12/24 05/12/24 allopurinoL [Zyloprim] 100 mg PO DAILY 05/12/24 05/12/24 hydrALAZINE HCL [Apresoline] 100 mg PO BID 05/12/24 05/12/24 Previous Rx's Medication Instructions Recorded Clopidogrel [Plavix] 75 mg PO DAILY #30 tab 09/07/15 Apixaban [Eliquis] 2.5 mg PO BID #0 tab 02/24/21 Cefuroxime [Ceftin] 500 mg PO BID 7 Days #14 tab 05/14/24 Allergies Allergy/AdvReac Type Severity Reaction Status Date / Time No Known Allergies Allergy Verified 05/12/24 18:49 Review of Systems ROS Statement: Those systems with pertinent positive or pertinent negative responses have been documented in the HPI. ROS Other: All systems not noted in ROS Statement are negative. Past Medical History Past Medical History: Chest Pain / Angina, Heart Failure, Diabetes Mellitus, Hyperlipidemia, Hypertension, Myocardial Infarction (OK), Osteoarthritis (OA), Vascular Disorder Additional Past Medical History / Comment(s): PAD, PVD Last Myocardial Infarction Date:: 02/2014 History of Any Multi-Drug Resistant Organisms: MRSA Date of last positivie culture/infection: 07/02/22 MDRO Source:: Left Arm Past Surgical History: Adenoidectomy, AICD, Appendectomy, Heart Catheterization, Orthopedic Surgery, Pacemaker, Tonsillectomy Additional Past Surgical History / Comment(s): Abdominal aortogram with runoff, Redo bilateral femfem crossover graft in March in [facility]. Other SX: left leg arterial bypass, pacemaker/defibrillator, sx lt hand, rt foot,cataracts,ABD AORTAGRAM,LEFT ARTERIAL ANGIOGRAM, LEFT ILIAC STENTING 09/05/15, R ankle surgery. Past Anesthesia/Blood Transfusion Reactions: No Reported Reaction, Postoperative Nausea & Vomiting (PONV) Type of Cardiac Device: Permanent Pacemaker, AICD Device Placement Date:: February 2014 Past Psychological History: No Psychological Hx Reported Smoking Status: Former smoker Past Alcohol Use History: None Reported Past Drug Use History: None Reported - Past Family History Mother Family Medical History: Cancer Sister(s) Family Medical History: Cancer General Exam Limitations: no limitations General appearance: alert, in no apparent distress Head exam: Present: atraumatic, normocephalic, normal inspection Eye exam: Present: normal appearance, PERRL, EOMI. Absent: scleral icterus, conjunctival injection, periorbital swelling ENT exam: Present: normal exam, mucous membranes moist Neck exam: Present: normal inspection. Absent: tenderness, meningismus, lymphadenopathy Respiratory exam: Present: normal lung sounds bilaterally. Absent: respiratory distress, wheezes, rales, rhonchi, stridor Cardiovascular Exam: Present: regular rate, normal rhythm, normal heart sounds. Absent: systolic murmur, diastolic murmur, rubs, gallop, clicks GI/Abdominal exam: Present: soft, normal bowel sounds. Absent: distended, tenderness, guarding, rebound, rigid Extremities exam: Present: normal inspection, full ROM, normal capillary refill. Absent: tenderness, pedal edema, joint swelling, calf tenderness Back exam: Present: normal inspection Neurological exam: Present: alert, oriented X3, CN II-XII intact Psychiatric exam: Present: normal affect, normal mood Skin exam: Present: warm, dry, intact, normal color. Absent: rash Course Vital Signs 05/12/24 05/12/24 05/12/24 16:55 17:54 18:04 Temperature 101.4 F H Pulse Rate 115 H 101 H Pulse Rate [ 104 H Medical Record Administrator ] Respiratory 20 18 Rate Blood Pressure 128/73 138/76 O2 Sat by Pulse 92 L 92 L Oximetry 05/12/24 05/12/24 05/13/24 19:42 23:00 01:00 Temperature 98.7 F Pulse Rate 89 72 73 Pulse Rate [ Medical Record Administrator ] Respiratory 18 Rate Blood Pressure 122/62 109/56 129/73 O2 Sat by Pulse 91 L 93 L 95 Oximetry 05/13/24 05/13/24 05/13/24 03:00 06:00 07:42 Temperature Pulse Rate 73 69 92 Pulse Rate [ Medical Record Administrator ] Respiratory 18 Rate Blood Pressure 147/71 158/84 162/86 O2 Sat by Pulse 94 L 95 96 Oximetry - Reevaluation(s) Reevaluation #1: 05/12/24 20:11 Medical records reviewed Reevaluation #2: 05/12/24 20:11 Patient symptoms improving Reevaluation #3: 05/12/24 20:11 Patient informed of results and questions answered Reevaluation #4: Was pt. sent in by a medical professional or institution (, PA, [employer], urgent care, hospital, or long term...) When possible be specific @ -no Did you speak to anyone other than the patient for history (EMS, parent, family, police, friend...)? What history was obtained from this source @ -no Did you review nursing and triage notes (agree or disagree)? Why? @ -agree Are old charts reviewed (outside hosp., previous admission, EMS record, old EKG, old radiological studies, urgent care reports/EKG's, long term records)? Report findings @ -yes Differential Diagnosis (chest pain, altered mental status, abdominal pain women, abdominal pain men, vaginal bleeding, weakness, fever, dyspnea, syncope, headache, dizziness, GI bleed, back pain, seizure, CVA, palpatations, mental health, musculoskeletal)? @ -prior EKG interpreted by me (3pts min.). @ -yes X-rays interpreted by me (1pt min.). @ -yes negative for acute disease CT interpreted by me (1pt min.). @ -no U/S interpreted by me (1pt. min.). @ -no What testing was considered but not performed or refused? (CT, X-rays, U/S, labs)? Why? @ -none What meds were considered but not given or refused? Why? @ -none Did you discuss the management of the patient with other professionals (professionals i.e. , PA, [employer], lab, RT, psych nurse, health and social care teacher, scholarship counselor, teacher, ecological technical officer, casey saw operator)? Give summary @ -no Was smoking cessation discussed for >3mins.? @ -no Was critical care preformed (if so, how long)? @ -yes31 Were there social determinants of health that impacted care today? How? (Homelessness, low income, unemployed, alcoholism, drug addiction, transportation, low edu. Level, literacy, decrease access to med. care, snf, rehab)? @ -none Was there de-escalation of care discussed even if they declined (Discuss DNR or withdrawal of care, Hospice)? DNR status @ -no What co-morbidities impacted this encounter? (DM, HTN, Smoking, COPD, CAD, Cancer, CVA, ARF, Chemo, Hep., AIDS, mental health diagnosis, sleep apnea, morbid obesity)? @ -none Was patient admitted / discharged? Hospital course, mention meds given and route, prescriptions, significant lab abnormalities, going to [place] and other [facility] [place] info. @ - 68 male to the ER for evaluation patient presents to the emergency department today for for evaluation of fever. Patient admitted for IV antibiotics for found urinary tract infection Admitted Undiagnosed new problem with uncertain prognosis? @ -no Drug Therapy requiring intensive monitoring for toxicity (Heparin, Nitro, Insulin, Cardizem)? @ -no Were any procedures done? @ -no Diagnosis/symptom? @ -UTI with fever,sepsis Acute, or Chronic, or Acute on Chronic? @ -Acute Uncomplicated (without systemic symptoms) or Complicated (systemic symptoms)? @ -Complicated Side effects of treatment? @ -no Exacerbation, Progression, or Severe Exacerbation? @ -exacerbation Poses a threat to patient's life yes Reevaluation #5: Differential Fever: Pneumonia, viral URI, endocarditis, myocarditis, pericarditis, otitis, sinusitis, peritonsillar Abscess, retropharyngeal Abscess, epiglottitis, peritonitis, appendicitis, Kendal cystitis, diverticulitis, hepatitis, colitis, UTI, PID, TOA, pyelonephritis, prostatitis, epididymitis, meningitis, encephalitis, pulmonary embolism, CVA, thyroid storm, pancreatitis, adrenal crisis, cavernous sinus thrombosis, this is not meant to be an all-inclusive list. - Consultations Consultation #1: Poke with Dr. Ortiz who agrees to admit this patient EKG Findings - EKG Comments: EKG Findings:: EKG is sinus 106 UT 170 QRS 110 QTc 393 - EKG Results: EKG: interpreted by ARSEN Medical Decision Making - Medical Decision Making 68 male to the ER for evaluation patient presents to the emergency department today for for evaluation of fever. Patient admitted for IV antibiotics for found urinary tract infection - Lab Data Result diagrams: 05/14/24 05:38 05/14/24 05:38 Lab Results 05/12/24 05/12/24 05/12/24 Range/Units 17:25 17:25 17:25 WBC 15.4 H (3.8-10.6) k/uL RBC 4.90 (4.30-5.90) m/uL Hgb 12.4 L (13.0-17.5) gm/dL Hct 39.5 (39.0-53.0) % MCV 80.8 (80.0-100.0) fL MCH 25.4 (25.0-35.0) pg MCHC 31.4 (31.0-37.0) g/dL RDW 15.3 (11.5-15.5) % Plt Count 225 (150-450) k/uL MPV 7.9 Neutrophils % 89 % Lymphocytes % 4 % Monocytes % 6 % Eosinophils % 0 % Basophils % 0 % Neutrophils # 13.7 H (1.3-7.7) k/uL Lymphocytes # 0.7 L (1.0-4.8) k/uL Monocytes # 0.9 (0-1.0) k/uL Eosinophils # 0.0 (0-0.7) k/uL Basophils # 0.0 (0-0.2) k/uL PT 11.8 (10.0-12.5) sec INR 1.1 (<1.2) APTT 25.5 (22.0-30.0) sec Sodium (137-145) mmol/L Potassium (3.5-5.1) mmol/L Chloride (98-107) mmol/L Carbon Dioxide (22-30) mmol/L Anion Gap mmol/L BUN (9-20) mg/dL Creatinine (0.66-1.25) mg/dL Est GFR (CKD-EPI)AfAm (>60 ml/min/1.73 sqM) Est GFR (CKD-EPI)NonAf (>60 ml/min/1.73 sqM) Glucose (74-99) mg/dL Plasma Lactic Acid Jc (0.7-2.0) mmol/L Calcium (8.4-10.2) mg/dL Phosphorus (2.5-4.5) mg/dL Magnesium (1.6-2.3) mg/dL Total Bilirubin (0.2-1.3) mg/dL AST (17-59) U/L ALT (4-49) U/L Alkaline Phosphatase (38-126) U/L Troponin I (0.000-0.034) ng/mL NT-Pro-B Natriuret Pep pg/mL Total Protein (6.3-8.2) g/dL Albumin (3.5-5.0) g/dL Urine Color Colorless Urine Appearance Clear (Clear) Urine pH 5.0 (5.0-8.0) Ur Specific Jackson 1.011 (1.001-1.035) Urine Protein Negative (Negative) Urine Glucose (UA) Negative (Negative) Urine Ketones Negative (Negative) Urine Blood Negative (Negative) Urine Nitrite Negative (Negative) Urine Bilirubin Negative (Negative) Urine Urobilinogen <2.0 (<2.0) mg/dL Ur Leukocyte Esterase Moderate H (Negative) Urine RBC 2 (0-5) /hpf Urine WBC 31 H (0-5) /hpf Ur Squamous Epith Cells <1 (0-4) /hpf Urine Bacteria Rare H (None) /hpf Urine Mucus Rare H (None) /hpf Influenza Type A (PCR) (Not Detectd) Influenza Type B (PCR) (Not Detectd) RSV (PCR) (Not Detectd) SARS-CoV-2 (PCR) (Not Detectd) 05/12/24 05/12/24 05/12/24 Range/Units 17:25 17:25 17:25 WBC (3.8-10.6) k/uL RBC (4.30-5.90) m/uL Hgb (13.0-17.5) gm/dL Hct (39.0-53.0) % MCV (80.0-100.0) fL MCH (25.0-35.0) pg MCHC (31.0-37.0) g/dL RDW (11.5-15.5) % Plt Count (150-450) k/uL MPV Neutrophils % % Lymphocytes % % Monocytes % % Eosinophils % % Basophils % % Neutrophils # (1.3-7.7) k/uL Lymphocytes # (1.0-4.8) k/uL Monocytes # (0-1.0) k/uL Eosinophils # (0-0.7) k/uL Basophils # (0-0.2) k/uL PT (10.0-12.5) sec INR (<1.2) APTT (22.0-30.0) sec Sodium 135 L (137-145) mmol/L Potassium 4.0 (3.5-5.1) mmol/L Chloride 102 (98-107) mmol/L Carbon Dioxide 22 (22-30) mmol/L Anion Gap 11 mmol/L BUN 22 H (9-20) mg/dL Creatinine 1.19 (0.66-1.25) mg/dL Est GFR (CKD-EPI)AfAm 72 (>60 ml/min/1.73 sqM) Est GFR (CKD-EPI)NonAf 62 (>60 ml/min/1.73 sqM) Glucose 148 H (74-99) mg/dL Plasma Lactic Acid Jc 1.2 (0.7-2.0) mmol/L Calcium 8.7 (8.4-10.2) mg/dL Phosphorus 1.5 L (2.5-4.5) mg/dL Magnesium 1.0 L (1.6-2.3) mg/dL Total Bilirubin 1.0 (0.2-1.3) mg/dL AST 24 (17-59) U/L ALT 19 (4-49) U/L Alkaline Phosphatase 74 (38-126) U/L Troponin I <0.012 (0.000-0.034) ng/mL NT-Pro-B Natriuret Pep 519 pg/mL Total Protein 6.4 (6.3-8.2) g/dL Albumin 4.1 (3.5-5.0) g/dL Urine Color Urine Appearance (Clear) Urine pH (5.0-8.0) Ur Specific Jackson (1.001-1.035) Urine Protein (Negative) Urine Glucose (UA) (Negative) Urine Ketones (Negative) Urine Blood (Negative) Urine Nitrite (Negative) Urine Bilirubin (Negative) Urine Urobilinogen (<2.0) mg/dL Ur Leukocyte Esterase (Negative) Urine RBC (0-5) /hpf Urine WBC (0-5) /hpf Ur Squamous Epith Cells (0-4) /hpf Urine Bacteria (None) /hpf Urine Mucus (None) /hpf Influenza Type A (PCR) (Not Detectd) Influenza Type B (PCR) (Not Detectd) RSV (PCR) (Not Detectd) SARS-CoV-2 (PCR) (Not Detectd) 05/12/24 Range/Units 17:25 WBC (3.8-10.6) k/uL RBC (4.30-5.90) m/uL Hgb (13.0-17.5) gm/dL Hct (39.0-53.0) % MCV (80.0-100.0) fL MCH (25.0-35.0) pg MCHC (31.0-37.0) g/dL RDW (11.5-15.5) % Plt Count (150-450) k/uL MPV Neutrophils % % Lymphocytes % % Monocytes % % Eosinophils % % Basophils % % Neutrophils # (1.3-7.7) k/uL Lymphocytes # (1.0-4.8) k/uL Monocytes # (0-1.0) k/uL Eosinophils # (0-0.7) k/uL Basophils # (0-0.2) k/uL PT (10.0-12.5) sec INR (<1.2) APTT (22.0-30.0) sec Sodium (137-145) mmol/L Potassium (3.5-5.1) mmol/L Chloride (98-107) mmol/L Carbon Dioxide (22-30) mmol/L Anion Gap mmol/L BUN (9-20) mg/dL Creatinine (0.66-1.25) mg/dL Est GFR (CKD-EPI)AfAm (>60 ml/min/1.73 sqM) Est GFR (CKD-EPI)NonAf (>60 ml/min/1.73 sqM) Glucose (74-99) mg/dL Plasma Lactic Acid Jc (0.7-2.0) mmol/L Calcium (8.4-10.2) mg/dL Phosphorus (2.5-4.5) mg/dL Magnesium (1.6-2.3) mg/dL Total Bilirubin (0.2-1.3) mg/dL AST (17-59) U/L ALT (4-49) U/L Alkaline Phosphatase (38-126) U/L Troponin I (0.000-0.034) ng/mL NT-Pro-B Natriuret Pep pg/mL Total Protein (6.3-8.2) g/dL Albumin (3.5-5.0) g/dL Urine Color Urine Appearance (Clear) Urine pH (5.0-8.0) Ur Specific Jackson (1.001-1.035) Urine Protein (Negative) Urine Glucose (UA) (Negative) Urine Ketones (Negative) Urine Blood (Negative) Urine Nitrite (Negative) Urine Bilirubin (Negative) Urine Urobilinogen (<2.0) mg/dL Ur Leukocyte Esterase (Negative) Urine RBC (0-5) /hpf Urine WBC (0-5) /hpf Ur Squamous Epith Cells (0-4) /hpf Urine Bacteria (None) /hpf Urine Mucus (None) /hpf Influenza Type A (PCR) Not Detected (Not Detectd) Influenza Type B (PCR) Not Detected (Not Detectd) RSV (PCR) Not Detected (Not Detectd) SARS-CoV-2 (PCR) Not Detected (Not Detectd) - EKG Data -: EKG Interpreted by Me - Radiology Data Radiology results: report reviewed (Chest x-ray is negative for acute disease), image reviewed Critical Care Time Critical Care Time: Yes Total Critical Care Time: 31 Disposition Clinical Impression: Fever and chills, Febrile illness, UTI (urinary tract infection), Dehydration, Congestive heart failure, Hypoxia, Weakness, Sepsis Disposition: ADMITTED IP TO THIS HOSP Condition: Serious Is patient prescribed a controlled substance at d/c from ED?: No Time of Disposition: 20:00
[2024-05-12] MEDS: ACETAMINOPHEN IV (For NPO) 1,000 MG in EMPTY BAG 1 BAG IVPB ONE (17:44)
[2024-05-12] MEDS: SODIUM CHLORIDE 0.9% 1,000 ML IV STA ×2 (17:45→17:46)
[2024-05-12 17:59] LABS: Basophils % (A) 0 %; Eosinophils % (A) 0 %; HCT 39.5 % (39.0-53.0); HGB 12.4 gm/dL (13.0-17.5); Lymphocytes # (A) 0.7 k/uL (1.0-4.8); Lymphocytes % (A) 4 %; MCH 25.4 pg (25.0-35.0); MCHC 31.4 g/dL (31.0-37.0); MCV 80.8 fL (80.0-100.0); Mean Platelet Volume 7.9; Monocytes # (A) 0.9 k/uL (0-1.0); Monocytes % (A) 6 %; Neutrophils # (A) 13.7 k/uL (1.3-7.7); Neutrophils % (A) 89 %; Platelet Count 225 k/uL (150-450); RDW 15.3 % (11.5-15.5); WBC 15.4 k/uL (3.8-10.6)
[2024-05-12] MEDS: IBUPROFEN IV 800 MG in SODIUM CHLORIDE 0.9% 250 ML IV ONE (18:00)
[2024-05-12 18:06] LABS: Appearance,Urine Clear (Clear); Bacteria,Urine Rare /hpf; Bilirubin,Urine Negative (Negative); Blood,Urine Negative (Negative); Color,Urine Colorless; Glucose,Urine (UA) Negative (Negative); Ketones,Urine Negative (Negative); Leukocyte Esterase,Urine Moderate (Negative); Mucus,Urine Rare /hpf; Nitrite,Urine Negative (Negative); Protein,Urine Negative (Negative); RBC,Urine 2 /hpf (0-5); Specific Gravity,Urine 1.011 (1.001-1.035); Squamous Epithelial Cell,Urine <1 /hpf (0-4); Urobilinogen,Urine <2.0 mg/dL (<2.0); WBC,Urine 31 /hpf (0-5)
[2024-05-12 18:09] LABS: ALT 19 U/L (4-49); AST 24 U/L (17-59); African American GFR (CKD) 72 (>60 ml/min/1.73 sqM); Albumin 4.1 g/dL (3.5-5.0); Alkaline Phosphatase 74 U/L (38-126); Anion Gap 11 mmol/L; Blood Urea Nitrogen 22 mg/dL (9-20); Calcium 8.7 mg/dL (8.4-10.2); Carbon Dioxide 22 mmol/L (22-30); Chloride 102 mmol/L (98-107); Glucose 148 mg/dL (74-99); Non-African American GFR(CKD) 62 (>60 ml/min/1.73 sqM); Phosphorus 1.5 mg/dL (2.5-4.5); Sodium 135 mmol/L (137-145); Total Protein 6.4 g/dL (6.3-8.2)
[2024-05-12 18:17] LABS: INR 1.1 (<1.2); Partial Thromboplastin Time 25.5 sec (22.0-30.0); Prothrombin Time 11.8 sec (10.0-12.5)
[2024-05-12 18:18] LABS: NT-Pro-B-Type Natriuretic Pept 519 pg/mL
--- NOTE | 2024-05-12 19:13 | XR ---
EXAMINATION TYPE: XR chest 2V DATE OF EXAM: 05/12/2024 6:28 PM CLINICAL INDICATION:Male, 68 years old with history of Weakness; COMPARISON: Chest radiographs from 05/17/2021 TECHNIQUE: XR chest 2V Frontal and lateral views of the chest. FINDINGS: Lungs/Pleura: There is no evidence of pleural effusion, focal consolidation, or pneumothorax. Pulmonary vascularity: Pulmonary vascular congestion. Heart/mediastinum: Cardiomediastinal silhouette is enlarged and stable. Single-lead cardiac conductio n device overlying the left hemithorax with lead projecting over the right ventricle. Musculoskeletal: No acute osseous pathology. IMPRESSION: Cardiomegaly and mild pulmonary vascular congestion. Correlate with BNP for congestive heart failure.
[2024-05-12] MEDS ORDERED: NALOXONE 0.4 MG/ML 1 ML VIAL IV PRN (20:09)
[2024-05-12] MEDS ORDERED: MORPHINE SULFATE 4 MG/ML SYRINGE IV PRN (20:09)
[2024-05-12] MEDS ORDERED: ONDANSETRON 4 MG/2 ML VIAL IVP PRN (20:09)
[2024-05-12] MEDS: MAGNESIUM OXIDE 400 MG TAB PO STA (20:21)
[2024-05-12] MEDS: SODIUM CHLORIDE 0.9% 1,000 ML IV SCH (20:22)
[2024-05-12] MEDS: MAGNESIUM SULFATE-D5W PMX 1 GM in DEXTROSE/WATER 1 100ML.BAG IVPB SCH (21:36)
--- NOTE | 2024-05-13 08:24 | P.HPIM ---
History of Present Illness H&P Date: 05/12/24 HISTORY OF PRESENT ILLNESS: 68-year-old mildly overweight with active medical history of Type 2 diabetes with complication, long-term insulin use, severe ischemic cardiomyopathy with low ejection fraction was close to 13 percentile with medical management has improved significantly the patient had an ICD/pacemaker, chronic kidney disease, hypertensive chronic kidney disease stage II chronic kidney disease, hip tension, abnormal kidney function test, enlarged prostate with BPH, cardiomyopathy, PAD, gout, chronic neuropathy. Who has been new to our office since January of this year as a new patient. Has been seen by urology regularly for urethral stricture, also has been seen by interventional cardiology for atherosclerotic heart disease and severe PAD with angioplasty and stent placement of the iliac artery. Patient was working in the [employer] and a project he ended up going in and out in the extremely heated water and he developed to have acute exhaustion with time he felt he was in a pass out was not able to keep up with his hydration. He did not have a total syncope with Not feeling well since he refused to come to the emergency room on Friday but on Friday with his symptoms continue to be quite severe with severe weakness tremors shakiness fever and chills developed Nausea with some diarrhea. The severity of his symptoms white blood cell was 15,400 left-shifted chemistry shows low magnesium at 1.0 with phosphorus 1.5 GFR 62. UA was quite very positive, chest x-ray showed cardiomegaly and mild vascular congestion correlate with mild CHF mostly. EKG showed sinus tachycardia. His laboratory values with proBNP 519. REVIEW OF SYSTEMS: CONSTITUTIONAL: Well-developed no acute respiratory distress. EYES: No icterus sclerae, no conjunctivitis. EARS, NOSE, MOUTH, THROAT, and FACE: No sore throat, lymphadenopathy, carotid bruits or deformity. RESPIRATORY: No SOB cough or wheezes. CARDIOVASCULAR: No CP, Palpitation, PND, Orthopnea, or angina. GASTROINTESTINAL: No Abd pain, Nausea or vomiting, no Diarrhea or constipation, No GI Bleed, no distention or masses. GENITOURINARY: Negative for Hematuria or UTI, no kidney stones. INTEGUMENT/BREAST: Negative for any muscular injury with mild osteoarthritis.. HEMATOLOGIC/LYMPHATIC: Negative for bleed or purpura. MUSCULOSKELTAL: Negative for Myalgia or arthralgia. NEURLOGICAL: No LOC, Sz or syncope, blurred vision dizziness or abnormality.. BEHAVIORAL/PSYCH: Negative. ENDOCRINE: Negative. PHYSICAL EXAMINATION: General Appearance: Alert, cooperative, no distress, appears stated age. Neck HEENT: Supple, no lymphadenopathy, no thyroid enlargement, no carotid bruits. Lungs: Clear to auscultation without crackles or wheezes no rhonchi, no deformity. Chest Wall: Chest wall normal expansion with deep inspiration no tenderness and no deformity was found on exam, no costochondral pain or discomfort. Heart: Regular rate and rhythm, S1, S2 normal, no murmur, rub or gallop. Back: Symmetric, no curvature, ROM normal, no CVA tenderness. Abdomen: Soft, non-tender, bowel sounds active all four quadrants, no masses, no organomegaly. Extremities: Extremities normal, atraumatic, no cyanosis or edema. Pulses: 2+ and symmetric. Skin: Skin color, texture, tugor normal, no rashes or lesions. Neurologic: Alert oriented x3 cranial nerves II through XII intact, no motor deficit, no abnormal balance or gait. ASSESSMENT AND PLAN: _Fever chills severe bronchitis and UTI: Was giving 2 g of Rocephin one-time culture was done patient was admitted to the hospital. _UTI: Admit patient to the hospital continue antibiotic for now with culture is back. _Hypomagnesemia: 2 g of magnesium IV will be given will continue oral magnesium oxide 400 mg daily. _Type 2 diabetes: Has been on Lantus 35 units at bedtime Ozempic 0.5 mg weekly started recently still on Accu-Chek with sliding scale coverage. _Cardiomyopathy: Still medical management still have an ICD. _Hyperlipidemia remains on atorvastatin 80 mg daily continue medication. _Atherosclerotic heart disease: Post angioplasty and stent placement, still on secondary prevention being on beta-mehdi, along with statin. _Hypertension: Has been on hydralazine 100 mg twice a day along with metoprolol succinate 100 mg daily. Still on spironolactone 25 mg a day. _Ischemic heart disease: Has been on Plavix, Eliquis, furosemide, hydralazine and _BPH: Watchful for any urinary retention: Remain on alpha-mehdi. _Hypertension.: Stable on current medication. Will watch medication carefully. _GI prophylaxis: Will be on PPI. _DVT prophylaxis: Knee-high JABARI hose and early mobilization. CODE STATUS: Full code. Admit patient to the inpatient service for more than 2 night stay. Discussion: Patient will be admitted, continue implant hydration, continue IV antibiotic and switch to oral antibiotics when possible in the meanwhile another dose of Rocephin might be used on to have the final culture his UA is back. Past Medical History Past Medical History: Chest Pain / Angina, Heart Failure, Diabetes Mellitus, Hyperlipidemia, Hypertension, Myocardial Infarction ([place]), Osteoarthritis (OA), Vascular Disorder Additional Past Medical History / Comment(s): PAD, PVD Last Myocardial Infarction Date:: 02/2014 History of Any Multi-Drug Resistant Organisms: MRSA Date of last positivie culture/infection: 07/02/22 MDRO Source:: Left Arm Past Surgical History: Adenoidectomy, AICD, Appendectomy, Heart Catheterization, Orthopedic Surgery, Pacemaker, Tonsillectomy Additional Past Surgical History / Comment(s): Abdominal aortogram with runoff, Redo bilateral femfem crossover graft in March in [facility]. Other SX: left leg arterial bypass, pacemaker/defibrillator, sx lt hand, rt foot,cataracts,ABD AORTAGRAM,LEFT ARTERIAL ANGIOGRAM, LEFT ILIAC STENTING 09/05/15, R ankle surgery. Past Anesthesia/Blood Transfusion Reactions: No Reported Reaction, Postoperative Nausea & Vomiting (PONV) Type of Cardiac Device: Permanent Pacemaker, AICD Device Placement Date:: February 2014 Past Psychological History: No Psychological Hx Reported Smoking Status: Former smoker Past Alcohol Use History: None Reported Past Drug Use History: None Reported - Past Family History Mother Family Medical History: Cancer Sister(s) Family Medical History: Cancer Medications and Allergies Home Medications Medication Instructions Recorded Confirmed Type Clopidogrel [Plavix] 75 mg PO DAILY #30 tab 09/07/15 05/12/24 Rx Fenofibrate Nanocrystallized 145 mg PO DAILY 01/16/21 05/12/24 History [Fenofibrate] Glimepiride [Amaryl] 1 mg PO BID 01/16/21 05/12/24 History Metoprolol Succinate (ER) [Toprol 100 mg PO DAILY 01/16/21 05/12/24 History XL] Apixaban [Eliquis] 2.5 mg PO BID #0 tab 02/24/21 05/12/24 Rx Atorvastatin Calcium [Lipitor] 80 mg PO HS 05/17/21 05/12/24 History Spironolactone [Aldactone] 25 mg PO DAILY 05/17/21 05/12/24 History Tamsulosin HCl [Flomax] 0.4 mg PO DAILY 05/17/21 05/12/24 History Furosemide [Lasix] 40 mg PO BID 07/10/22 05/12/24 History Omeprazole 40 mg PO DAILY 07/10/22 05/12/24 History Insulin Glargine [Lantus Vial] 25 units SQ HS 05/30/23 05/12/24 History Semaglutide [Ozempic] 0.5 mg SQ WE 05/12/24 05/12/24 History allopurinoL [Zyloprim] 100 mg PO DAILY 05/12/24 05/12/24 History hydrALAZINE HCL [Apresoline] 100 mg PO BID 05/12/24 05/12/24 History Allergies Allergy/AdvReac Type Severity Reaction Status Date / Time No Known Allergies Allergy Verified 05/12/24 18:49 Physical Exam Vitals: Vital Signs Temp Pulse Pulse Resp BP Pulse Ox 05/12/24 19:42 98.7 F 89 18 122/62 91 L 05/12/24 18:04 101 H 18 138/76 92 L 05/12/24 17:54 104 H 05/12/24 16:55 101.4 F H 115 H 20 128/73 92 L Intake and Output 05/12/24 05/12/24 05/12/24 06:59 14:59 22:59 Other: Weight 56.245 kg Results CBC & Chem 7: 05/12/24 17:25 05/12/24 17:25 Labs: Abnormal Lab Results - Last 24 Hours (Table) 05/12/24 05/12/24 05/12/24 Range/Units 17:25 17:25 17:25 WBC 15.4 H (3.8-10.6) k/uL Hgb 12.4 L (13.0-17.5) gm/dL Neutrophils # 13.7 H (1.3-7.7) k/uL Lymphocytes # 0.7 L (1.0-4.8) k/uL Sodium 135 L (137-145) mmol/L BUN 22 H (9-20) mg/dL Glucose 148 H (74-99) mg/dL Phosphorus 1.5 L (2.5-4.5) mg/dL Magnesium 1.0 L (1.6-2.3) mg/dL Ur Leukocyte Esterase Moderate H (Negative) Urine WBC 31 H (0-5) /hpf Urine Bacteria Rare H (None) /hpf Urine Mucus Rare H (None) /hpf
[2024-05-13 08:37] LABS: Glucose,Whole Blood 138 mg/dL (70-110)
[2024-05-13] MEDS ORDERED: PANTOPRAZOLE 40 MG/10 ML VIAL IV SCH (09:00)
[2024-05-13] MEDS: allopurinoL 100 MG TAB PO SCH (09:15)
[2024-05-13] MEDS: FENOFIBRATE 160 MG TAB PO SCH (09:15)
[2024-05-13] MEDS: PANTOPRAZOLE 40 MG TABLET PO SCH (09:15)
[2024-05-13] MEDS: FUROSEMIDE 40 MG TAB PO SCH (09:15)
[2024-05-13] MEDS: APIXABAN 2.5 MG TABLET PO SCH (09:15)
[2024-05-13] MEDS: TAMSULOSIN 0.4 MG CAP.ER.24H PO SCH (09:15)
[2024-05-13] MEDS: SPIRONOLACTONE 25 MG TAB PO SCH (09:15)
[2024-05-13] MEDS: hydrALAZINE HCL 50 MG TAB PO SCH (09:15)
[2024-05-13] MEDS: CLOPIDOGREL 75 MG TAB PO SCH (09:15)
--- NOTE | 2024-05-13 09:42 | CDI ---
Documentation Clarification Form Date: 05/13/2024 From: Mirella Shoemaker Phone: [phone] Admit Date: 05/12/2024 08:09:00 PM Patient Name: Heath Mejia Visit Number: [id number] Discharge Date: ATTENTION: The Clinical Documentation Specialists (CDI) and [facility] Coding Staff appreciate your assistance in clarifying documentation. Please respond to the clarification below the line at the bottom and electronically sign. The CDI & [facility] Coding staff will review the response and follow-up if needed. Please note: Queries are made part of the Legal Health Record. If you have any questions, please contact the author of this message via ITS. Dr. Rinku Jarvis: Conflicting documentation has been found in the medical record. As attending physician, please provide clarification. 05/13 H&P, HPI: "68 year old mildly overweight" 05/12 BMI: "18.3" History/Risk Factors: 68-year-old male with a history of DM2, ischemic cardiomyopathy, ICD, CKD who presents with severe weakness nausea with some diarrhea Clinical Indicators: 05/12 Patient Weight: 56.245kg Patient Height: 5ft 9in BMI: 18.3 05/12 Total protein: 6.4 Treatment: Regular diet Please clarify which diagnosis is most appropriate: [ ] Overweight [ XX ] Underweight [ ] Other (please specify) [ ] Unable to determine MTDD
[2024-05-13] MEDS: ACETAMINOPHEN TAB 325 MG TAB PO PRN (10:01)
[2024-05-13] MEDS: METOPROLOL SUCCINATE (ER) 100 MG TAB.ER.24H PO SCH (10:02)
[2024-05-13] MEDS: GLIMEPIRIDE 1 MG TAB PO SCH (10:02)
[2024-05-13 10:47] LABS: ALT 16 U/L (10-49); AST 17 U/L (14-35); Albumin 3.6 g/dL (3.8-4.9); Alkaline Phosphatase 66 U/L (41-126); BUN/Creat Ratio 16.58 Ratio (12.00-20.00); Basophils # (A) 0.03 X 10*3/uL (0.00-0.10); Basophils % (A) 0.2 %; Blood Urea Nitrogen 19.9 mg/dL (9.0-27.0); Calcium 7.9 mg/dL (8.7-10.3); Carbon Dioxide 22.9 mmol/L (21.6-31.8); Chloride 106 mmol/L (96-109); Eosinophils # (A) 0.13 X 10*3/uL (0.04-0.35); Eosinophils % (A) 1.1 %; Glucose 170 mg/dL (70-110); HCT 35.7 % (39.6-50.0); HGB 10.9 g/dL (13.0-17.0); Lymphocytes # (A) 0.72 X 10*3/uL (0.90-5.00); MCHC 30.5 g/dL (32.0-37.0); MCV 81.9 FL (80.0-97.0); Magnesium 1.9 mg/dL (1.5-2.4); Mean Platelet Volume 11.1 FL (9.5-12.2); Monocytes # (A) 0.66 X 10*3/uL (0.20-1.00); Monocytes % (A) 5.5 %; NRBC Per 100 WBC 0 X 10*3/uL (0.00-0.01); Neutrophils # (A) 10.43 X 10*3/uL (1.80-7.70); Neutrophils % (A) 86.8 %; Phosphorus 1.9 mg/dL (2.4-5.1); Platelet Count 223 X 10*3/uL (140-440); Potassium 4.3 mmol/L (3.5-5.5); RBC 4.36 X 10*6/uL (4.40-5.60); RDW 15.9 % (11.5-14.5); Sodium 140 mmol/L (135-145); Total Bilirubin 0.5 mg/dL (0.3-1.2); Total Protein 5.6 g/dL (6.2-8.2); WBC 12.02 X 10*3/uL (4.50-10.00)
[2024-05-13 12:07] LABS: Glucose,Whole Blood 146 mg/dL (70-110)
[2024-05-13 15:32] VITALS: BMI 32.8
[2024-05-13 18:30] LABS: Glucose,Whole Blood 162 mg/dL (70-110)
[2024-05-13] MEDS: INSULIN DETEMIR (LEVEMIR) 100 UNIT/ML SYR SQ SCH (20:23)
[2024-05-13] MEDS: ATORVASTATIN 80 MG TAB PO SCH (20:23)
[2024-05-13 20:37] LABS: Glucose,Whole Blood 165 mg/dL (70-110)
[2024-05-14 07:11] LABS: Glucose,Whole Blood 111 mg/dL (70-110)
[2024-05-14 07:25] LABS: Basophils % (A) 0 %; Eosinophils # (A) 0.3 k/uL (0-0.7); Eosinophils % (A) 4 %; HCT 37.4 % (39.0-53.0); HGB 11.4 gm/dL (13.0-17.5); Hypochromasia Slight; Lymphocytes # (A) 1.6 k/uL (1.0-4.8); Lymphocytes % (A) 20 %; MCH 25.2 pg (25.0-35.0); MCHC 30.6 g/dL (31.0-37.0); MCV 82.3 fL (80.0-100.0); Mean Platelet Volume 7.8; Monocytes # (A) 0.7 k/uL (0-1.0); Monocytes % (A) 9 %; Neutrophils # (A) 5.2 k/uL (1.3-7.7); Neutrophils % (A) 63 %; Platelet Count 197 k/uL (150-450); RBC 4.54 m/uL (4.30-5.90); RDW 15.1 % (11.5-15.5); WBC 8.3 k/uL (3.8-10.6)
[2024-05-14 07:44] LABS: ALT 17 U/L (4-49); AST 19 U/L (17-59); African American GFR (CKD) 71 (>60 ml/min/1.73 sqM); Albumin 3.1 g/dL (3.5-5.0); Albumin/Globulin Ratio 1.2; Alkaline Phosphatase 72 U/L (38-126); Anion Gap 6 mmol/L; Blood Urea Nitrogen 18 mg/dL (9-20); Calcium 8.3 mg/dL (8.4-10.2); Carbon Dioxide 28 mmol/L (22-30); Chloride 106 mmol/L (98-107); Globulin 2.5 g/dL; Glucose 95 mg/dL (74-99); Magnesium 1.6 mg/dL (1.6-2.3); Non-African American GFR(CKD) 62 (>60 ml/min/1.73 sqM); Potassium 4.2 mmol/L (3.5-5.1); Sodium 140 mmol/L (137-145); Total Bilirubin 0.3 mg/dL (0.2-1.3); Total Protein 5.6 g/dL (6.3-8.2)
[2024-05-14 07:49] VITALS: BP 159/75; PULSE 88; RESP 24; TEMP 98.3
[2024-05-14 12:13] LABS: Glucose,Whole Blood 112 mg/dL (70-110)
--- NOTE | 2024-05-15 16:48 | P.PN ---
Subjective Progress Note Date: 05/14/24 HISTORY OF PRESENT ILLNESS: 68-year-old mildly overweight with active medical history of Type 2 diabetes with complication, long-term insulin use, severe ischemic cardiomyopathy with low ejection fraction was close to 13 percentile with medical management has improved significantly the patient had an ICD/pacemaker, chronic kidney disease, hypertensive chronic kidney disease stage II chronic kidney disease, hip tension, abnormal kidney function test, enlarged prostate with BPH, cardiomyopathy, PAD, gout, chronic neuropathy. Who has been new to our office since January of this year as a new patient. Has been seen by urology regularly for urethral stricture, also has been seen by interventional cardiology for atherosclerotic heart disease and severe PAD with angioplasty and stent placement of the iliac artery. Patient was working in the [employer] and a project he ended up going in and out in the extremely heated water and he developed to have acute exhaustion with time he felt he was in a pass out was not able to keep up with his hydration. He did not have a total syncope with Not feeling well since he refused to come to the emergency room on Friday but on Friday with his symptoms continue to be quite severe with severe weakness tremors shakiness fever and chills developed Nausea with some diarrhea. The severity of his symptoms white blood cell was 15,400 left-shifted chemistry shows low magnesium at 1.0 with phosphorus 1.5 GFR 62. UA was quite very positive, chest x-ray showed cardiomegaly and mild vascular congestion correlate with mild CHF mostly. EKG showed sinus tachycardia. His laboratory values with proBNP 519. 05/14/2024: Patient is feeling much better today he is well-hydrated kidney function has improved blood pressure is much better no further fever or chills UTIs well treated with Rocephin so far received second dose of Rocephin IV will be switched to oral cefuroxime. Also magnesium supplement was done well and nicely corrected magnesium back to normal. Patient is feeling well able to ambulate and walk with no complication he is back on his oral meds able to tolerate oral intake without any complication. He will be discharged home today 05/14/2024. REVIEW OF SYSTEMS: CONSTITUTIONAL: Well-developed no acute respiratory distress. EYES: No icterus sclerae, no conjunctivitis. EARS, NOSE, MOUTH, THROAT, and FACE: No sore throat, lymphadenopathy, carotid bruits or deformity. RESPIRATORY: No SOB cough or wheezes. CARDIOVASCULAR: No CP, Palpitation, PND, Orthopnea, or angina. GASTROINTESTINAL: No Abd pain, Nausea or vomiting, no Diarrhea or constipation, No GI Bleed, no distention or masses. GENITOURINARY: Negative for Hematuria or UTI, no kidney stones. INTEGUMENT/BREAST: Negative for any muscular injury with mild osteoarthritis.. HEMATOLOGIC/LYMPHATIC: Negative for bleed or purpura. MUSCULOSKELTAL: Negative for Myalgia or arthralgia. NEURLOGICAL: No LOC, Sz or syncope, blurred vision dizziness or abnormality.. BEHAVIORAL/PSYCH: Negative. ENDOCRINE: Negative. PHYSICAL EXAMINATION: General Appearance: Alert, cooperative, no distress, appears stated age. Neck HEENT: Supple, no lymphadenopathy, no thyroid enlargement, no carotid bruits. Lungs: Clear to auscultation without crackles or wheezes no rhonchi, no deformity. Chest Wall: Chest wall normal expansion with deep inspiration no tenderness and no deformity was found on exam, no costochondral pain or discomfort. Heart: Regular rate and rhythm, S1, S2 normal, no murmur, rub or gallop. Back: Symmetric, no curvature, ROM normal, no CVA tenderness. Abdomen: Soft, non-tender, bowel sounds active all four quadrants, no masses, no organomegaly. Extremities: Extremities normal, atraumatic, no cyanosis or edema. Pulses: 2+ and symmetric. Skin: Skin color, texture, tugor normal, no rashes or lesions. Neurologic: Alert oriented x3 cranial nerves II through XII intact, no motor deficit, no abnormal balance or gait. ASSESSMENT AND PLAN: _Fever chills severe bronchitis and UTI: Was giving 2 g of Rocephin one-time culture was done patient was admitted to the hospital. _UTI: Admit patient to the hospital continue antibiotic for now with culture is back. _Hypomagnesemia: 2 g of magnesium IV will be given will continue oral magnesium oxide 400 mg daily. _Type 2 diabetes: Has been on Lantus 35 units at bedtime Ozempic 0.5 mg weekly started recently still on Accu-Chek with sliding scale coverage. _Cardiomyopathy: Still medical management still have an ICD. _Hyperlipidemia remains on atorvastatin 80 mg daily continue medication. _Atherosclerotic heart disease: Post angioplasty and stent placement, still on secondary prevention being on beta-mehdi, along with statin. _Hypertension: Has been on hydralazine 100 mg twice a day along with metoprolol succinate 100 mg daily. Still on spironolactone 25 mg a day. _Ischemic heart disease: Has been on Plavix, Eliquis, furosemide, hydralazine and _BPH: Watchful for any urinary retention: Remain on alpha-mehdi. _Hypertension.: Stable on current medication. Will watch medication carefully. _GI prophylaxis: Will be on PPI. Objective - Vital Signs Vital signs: Vital Signs Temp 98.5 F 05/14/24 02:00 Pulse 81 05/14/24 02:00 Resp 16 05/14/24 02:00 BP 146/55 05/14/24 02:00 Pulse Ox 91 L 05/14/24 02:00 FiO2 Intake & Output 05/13/24 05/13/24 05/14/24 06:59 18:59 06:59 Intake Total 1430 590 Output Total 2400 1000 Balance -970 -410 Weight 100.9 kg Intake: Intake, IV Titration 1430 Amount Sodium Chloride 0.9% 1, 1430 000 ml @ 130 mls/hr IV . [id number] [facility] Rx#:[id number] Oral 590 Output: Urine 2400 1000 Other: Voiding Method Urinal Urinal - Labs CBC & Chem 7: 05/14/24 05:38 05/14/24 05:38 Labs: Abnormal Lab Results - Last 24 Hours (Table) 05/13/24 05/13/24 05/13/24 Range/Units 07:19 07:19 08:36 WBC 12.02 H (4.50-10.00) X 10*3/uL RBC 4.36 L (4.40-5.60) X 10*6/uL Hgb 10.9 L (13.0-17.0) g/dL Hct 35.7 L (39.6-50.0) % MCH 25.0 L (27.0-32.0) pg MCHC 30.5 L (32.0-37.0) g/dL RDW 15.9 H (11.5-14.5) % Immature Gran # 0.05 H (0.00-0.04) X 10*3/uL Neutrophils # 10.43 H (1.80-7.70) X 10*3/uL Lymphocytes # 0.72 L (0.90-5.00) X 10*3/uL Glucose 170 H (70-110) mg/dL POC Glucose (mg/dL) 138 H (70-110) mg/dL Calcium 7.9 L (8.7-10.3) mg/dL Phosphorus 1.9 L (2.4-5.1) mg/dL Total Protein 5.6 L (6.2-8.2) g/dL Albumin 3.6 L (3.8-4.9) g/dL 05/13/24 05/13/24 05/13/24 Range/Units 12:05 18:29 20:36 WBC (4.50-10.00) X 10*3/uL RBC (4.40-5.60) X 10*6/uL Hgb (13.0-17.0) g/dL Hct (39.6-50.0) % MCH (27.0-32.0) pg MCHC (32.0-37.0) g/dL RDW (11.5-14.5) % Immature Gran # (0.00-0.04) X 10*3/uL Neutrophils # (1.80-7.70) X 10*3/uL Lymphocytes # (0.90-5.00) X 10*3/uL Glucose (70-110) mg/dL POC Glucose (mg/dL) 146 H 162 H 165 H (70-110) mg/dL Calcium (8.7-10.3) mg/dL Phosphorus (2.4-5.1) mg/dL Total Protein (6.2-8.2) g/dL Albumin (3.8-4.9) g/dL Microbiology - Last 24 Hours (Table) 05/12/24 17:40 Blood Culture - Preliminary Blood 05/12/24 17:25 Blood Culture - Preliminary Blood
--- NOTE | 2024-05-15 16:48 | P.DS ---
Providers Date of admission: 05/12/24 20:09 Attending physician: Rinku Jarvis Primary care physician: [facility] Course: HISTORY OF PRESENT ILLNESS: 68-year-old mildly overweight with active medical history of Type 2 diabetes with complication, long-term insulin use, severe ischemic cardiomyopathy with low ejection fraction was close to 13 percentile with medical management has improved significantly the patient had an ICD/pacemaker, chronic kidney disease, hypertensive chronic kidney disease stage II chronic kidney disease, hip tension, abnormal kidney function test, enlarged prostate with BPH, cardiomyopathy, PAD, gout, chronic neuropathy. Who has been new to our office since January of this year as a new patient. Has been seen by urology regularly for urethral stricture, also has been seen by interventional cardiology for atherosclerotic heart disease and severe PAD with angioplasty and stent placement of the iliac artery. Patient was working in the [employer] and a project he ended up going in and out in the extremely heated water and he developed to have acute exhaustion with time he felt he was in a pass out was not able to keep up with his hydration. He did not have a total syncope with Not feeling well since he refused to come to the emergency room on Friday but on Friday with his symptoms continue to be quite severe with severe weakness tremors shakiness fever and chills developed Nausea with some diarrhea. The severity of his symptoms white blood cell was 15,400 left-shifted chemistry shows low magnesium at 1.0 with phosphorus 1.5 GFR 62. UA was quite very positive, chest x-ray showed cardiomegaly and mild vascular congestion correlate with mild CHF mostly. EKG showed sinus tachycardia. His laboratory values with proBNP 519. 05/14/2024: Patient is feeling much better today he is well-hydrated kidney function has improved blood pressure is much better no further fever or chills UTIs well treated with Rocephin so far received second dose of Rocephin IV will be switched to oral cefuroxime. Also magnesium supplement was done well and nicely corrected magnesium back to normal. Patient is feeling well able to ambulate and walk with no complication he is back on his oral meds able to tolerate oral intake without any complication. He will be discharged home today 05/14/2024. REVIEW OF SYSTEMS: CONSTITUTIONAL: Well-developed no acute respiratory distress. EYES: No icterus sclerae, no conjunctivitis. EARS, NOSE, MOUTH, THROAT, and FACE: No sore throat, lymphadenopathy, carotid bruits or deformity. RESPIRATORY: No SOB cough or wheezes. CARDIOVASCULAR: No CP, Palpitation, PND, Orthopnea, or angina. GASTROINTESTINAL: No Abd pain, Nausea or vomiting, no Diarrhea or constipation, No GI Bleed, no distention or masses. GENITOURINARY: Negative for Hematuria or UTI, no kidney stones. INTEGUMENT/BREAST: Negative for any muscular injury with mild osteoarthritis.. HEMATOLOGIC/LYMPHATIC: Negative for bleed or purpura. MUSCULOSKELTAL: Negative for Myalgia or arthralgia. NEURLOGICAL: No LOC, Sz or syncope, blurred vision dizziness or abnormality.. BEHAVIORAL/PSYCH: Negative. ENDOCRINE: Negative. PHYSICAL EXAMINATION: General Appearance: Alert, cooperative, no distress, appears stated age. Neck HEENT: Supple, no lymphadenopathy, no thyroid enlargement, no carotid bruits. Lungs: Clear to auscultation without crackles or wheezes no rhonchi, no deformity. Chest Wall: Chest wall normal expansion with deep inspiration no tenderness and no deformity was found on exam, no costochondral pain or discomfort. Heart: Regular rate and rhythm, S1, S2 normal, no murmur, rub or gallop. Back: Symmetric, no curvature, ROM normal, no CVA tenderness. Abdomen: Soft, non-tender, bowel sounds active all four quadrants, no masses, no organomegaly. Extremities: Extremities normal, atraumatic, no cyanosis or edema. Pulses: 2+ and symmetric. Skin: Skin color, texture, tugor normal, no rashes or lesions. Neurologic: Alert oriented x3 cranial nerves II through XII intact, no motor deficit, no abnormal balance or gait. ASSESSMENT AND PLAN: _Fever chills severe bronchitis and UTI: Was giving 2 g of Rocephin one-time culture was done patient was admitted to the hospital. _UTI: Admit patient to the hospital continue antibiotic for now with culture is back. _Hypomagnesemia: 2 g of magnesium IV will be given will continue oral magnesium oxide 400 mg daily. _Type 2 diabetes: Has been on Lantus 35 units at bedtime Ozempic 0.5 mg weekly started recently still on Accu-Chek with sliding scale coverage. _Cardiomyopathy: Still medical management still have an ICD. _Hyperlipidemia remains on atorvastatin 80 mg daily continue medication. _Atherosclerotic heart disease: Post angioplasty and stent placement, still on secondary prevention being on beta-mehdi, along with statin. _Hypertension: Has been on hydralazine 100 mg twice a day along with metoprolol succinate 100 mg daily. Still on spironolactone 25 mg a day. _Ischemic heart disease: Has been on Plavix, Eliquis, furosemide, hydralazine and _BPH: Watchful for any urinary retention: Remain on alpha-mehdi. _Hypertension.: Stable on current medication. Will watch medication carefully. _GI prophylaxis: Will be on PPI. Hospital course: Patient came to the emergency department on 05/13/2024 with fever chills tiredness fatigue and not feeling well the day before he had severe heat exhaustion and felt lightheaded and dizzy almost passed out but refused any help at the time but continue having significant fever and chills with nausea with some diarrhea. At the time was in the ER was with white blood cell 15,400 magnesium 1.0 phosphorus 1.5 GFR 62 UA shows positive result chest x-ray showed cardiomegaly with sign of CHF, EKG showed mild tachycardia only. Patient was diagnosed initially with fever chills secondary to UTI, hypomagnesemia, most likely heat exhaustion from early and with the severity of symptom causing significant hypotension was started on hydration, IV antibiotic, magnesium replacement admit to the hospital. Patient did very well within 24 hours the second dose of Rocephin he felt much better his white blood cell improved back to normal, able to urinate on his own no further fever or chills no lightheadedness or dizziness no fluctuation of blood pressure. Culture at the time of discharge still negative does not show any bacteria so far. Patient be discharged home today on 05/14/2024. Time spent on discharging patient was over 32 minutes. Patient Condition at Discharge: Serious Plan - Discharge Summary New Discharge Prescriptions: New Cefuroxime [Ceftin] 500 mg PO BID 7 Days #14 tab Continue Clopidogrel [Plavix] 75 mg PO DAILY #30 tab Metoprolol Succinate (ER) [Toprol XL] 100 mg PO DAILY Glimepiride [Amaryl] 1 mg PO BID Fenofibrate Nanocrystallized [Fenofibrate] 145 mg PO DAILY Apixaban [Eliquis] 2.5 mg PO BID #0 tab Spironolactone [Aldactone] 25 mg PO DAILY Atorvastatin Calcium [Lipitor] 80 mg PO HS Tamsulosin HCl [Flomax] 0.4 mg PO DAILY Furosemide [Lasix] 40 mg PO BID Omeprazole 40 mg PO DAILY Insulin Glargine [Lantus Vial] 25 units SQ HS allopurinoL [Zyloprim] 100 mg PO DAILY Semaglutide [Ozempic] 0.5 mg SQ WE hydrALAZINE HCL [Apresoline] 100 mg PO BID Discharge Medication List Clopidogrel [Plavix] 75 mg PO DAILY #30 tab 09/07/15 [Rx] Fenofibrate Nanocrystallized [Fenofibrate] 145 mg PO DAILY 01/16/21 [History] Glimepiride [Amaryl] 1 mg PO BID 01/16/21 [History] Metoprolol Succinate (ER) [Toprol XL] 100 mg PO DAILY 01/16/21 [History] Apixaban [Eliquis] 2.5 mg PO BID #0 tab 02/24/21 [Rx] Atorvastatin Calcium [Lipitor] 80 mg PO HS 05/17/21 [History] Spironolactone [Aldactone] 25 mg PO DAILY 05/17/21 [History] Tamsulosin HCl [Flomax] 0.4 mg PO DAILY 05/17/21 [History] Furosemide [Lasix] 40 mg PO BID 07/10/22 [History] Omeprazole 40 mg PO DAILY 07/10/22 [History] Insulin Glargine [Lantus Vial] 25 units SQ HS 05/30/23 [History] Semaglutide [Ozempic] 0.5 mg SQ WE 05/12/24 [History] allopurinoL [Zyloprim] 100 mg PO DAILY 05/12/24 [History] hydrALAZINE HCL [Apresoline] 100 mg PO BID 05/12/24 [History] Cefuroxime [Ceftin] 500 mg PO BID 7 Days #14 tab 05/14/24 [Rx] Follow up Appointment(s)/Referral(s): Rinku Jarvis MD [Primary Care Provider] - 1-2 days (Office closed at time of discharge. Please make own follow-up appt.) Patient Instructions/Handouts: Cefuroxime (By mouth), Dehydration (DC), Urinary Tract Infection in Men (DC) Discharge Disposition: HOME SELF-CARE
== END 2024-05-14 13:46 | disposition home or self-care (01) | DRG 690 ==
LOC: EC 16:18 → 5NMEDONC 20:09
PROVIDERS: ADMIT Internal Medicine Geriatric Medicine; ATTEND Internal Medicine Geriatric Medicine
DX: N39.0 Urinary tract infection, site not specified (principal); I13.0 Hypertensive heart and chronic kidney disease with heart failure and stage 1 through stage 4 chronic kidney disease, or unspecified chronic kidney disease; I95.9 Hypotension, unspecified; E11.22 Type 2 diabetes mellitus with diabetic chronic kidney disease; I50.9 Heart failure, unspecified; E11.40 Type 2 diabetes mellitus with diabetic neuropathy, unspecified; E11.51 Type 2 diabetes mellitus with diabetic peripheral angiopathy without gangrene; Z95.820 Peripheral vascular angioplasty status with implants and grafts; Z68.32 Body mass index [BMI] 32.0-32.9, adult; E66.3 Overweight; Z28.310 Unvaccinated for COVID-19; Z79.4 Long term (current) use of insulin; N18.2 Chronic kidney disease, stage 2 (mild); J40 Bronchitis, not specified as acute or chronic; E83.42 Hypomagnesemia; T67.5XXA Heat exhaustion, unspecified, initial encounter; E86.0 Dehydration; E78.5 Hyperlipidemia, unspecified; I25.10 Atherosclerotic heart disease of native coronary artery without angina pectoris; I25.2 Old myocardial infarction; I25.5 Ischemic cardiomyopathy; M10.9 Gout, unspecified; N35.919 Unspecified urethral stricture, male, unspecified site; N40.1 Benign prostatic hyperplasia with lower urinary tract symptoms; R33.8 Other retention of urine; R25.1 Tremor, unspecified; M19.90 Unspecified osteoarthritis, unspecified site; R09.02 Hypoxemia; Z79.01 Long term (current) use of anticoagulants; Z79.02 Long term (current) use of antithrombotics/antiplatelets; Z79.84 Long term (current) use of oral hypoglycemic drugs; Z79.85 Long-term (current) use of injectable non-insulin antidiabetic drugs; Z79.899 Other long term (current) drug therapy; Z87.891 Personal history of nicotine dependence; Z86.14 Personal history of Methicillin resistant Staphylococcus aureus infection; Z95.810 Presence of automatic (implantable) cardiac defibrillator; Z71.3 Dietary counseling and surveillance; X30.XXXA Exposure to excessive natural heat, initial encounter
CPT/HCPCS: 36415; 71046; 80053; 81001; 83605; 83735; 83880; 84100; 84484; 85025; 85610; 85730; 87040; 87636; 93005; 96361; 96365; 96366; 96367; 96375; 99291

== ENCOUNTER → 2024-08-05 | Outpatient (CLI) | payer MEDICARE, OTHER ==
--- NOTE | 2024-08-07 09:18 | XR ---
EXAMINATION TYPE: XR knee complete LT DATE OF EXAM: 08/05/2024 11:27 AM CLINICAL INDICATION: Male, 68 years old with history of M79.605 pain l leg; [facility] COMPARISON: None. TECHNIQUE: XR knee complete LT; examined in Frontal, lateral and oblique projections. FINDINGS: No evidence of any acute osseous pathology, soft tissue swelling, or joint effusion is no tatiana. Tricompartmental osteophyte formation involving the femoral condyles, tibial plateau and patella . Mild joint space narrowing. A fabella is present. IMPRESSION: 1. No acute osseous pathology. 2. Moderate tricompartmental osteoarthritic changes.
--- NOTE | 2024-08-07 09:31 | XR ---
EXAMINATION TYPE: XR tibia fibula LT DATE OF EXAM: 08/05/2024 11:27 AM CLINICAL INDICATION: Male, 68 years old with history of M79.6005 pain L leg; [facility] COMPARISON: None TECHNIQUE: XR tibia fibula LT; examined in AP and lateral projections. FINDINGS: Soft tissues are intact anteriorly without evidence of radiopaque foreign body. No evidence of fracture. Joint space narrowing and osteophyte formation of the knee. IMPRESSION: 1. No evidence of acute fracture. 2. Soft tissue swelling anterior leg without evidence of radiopaque foreign body.
== END | disposition home or self-care (01) ==
LOC: RADXRMAIN 10:51
PROVIDERS: ATTEND Internal Medicine Geriatric Medicine
DX: M79.605 Pain in left leg

== ENCOUNTER → 2024-08-06 | Outpatient (CLI) | payer MEDICARE, OTHER ==
[2024-08-06 15:08] LABS: Basophils # (A) 0.06 X 10*3/uL (0.00-0.10); Basophils % (A) 0.8 %; Eosinophils # (A) 0.24 X 10*3/uL (0.04-0.35); Eosinophils % (A) 3.3 %; HCT 39.5 % (39.6-50.0); HGB 12.3 g/dL (13.0-17.0); Lymphocytes # (A) 1.96 X 10*3/uL (0.90-5.00); Lymphocytes % (A) 26.6 %; MCH 25.6 pg (27.0-32.0); MCHC 31.1 g/dL (32.0-37.0); MCV 82.3 FL (80.0-97.0); Mean Platelet Volume 10.8 FL (9.5-12.2); Monocytes # (A) 0.59 X 10*3/uL (0.20-1.00); NRBC Per 100 WBC 0 X 10*3/uL (0.00-0.01); Neutrophils # (A) 4.46 X 10*3/uL (1.80-7.70); Neutrophils % (A) 60.6 %; Platelet Count 321 X 10*3/uL (140-440); RDW 16.8 % (11.5-14.5); WBC 7.36 X 10*3/uL (4.50-10.00)
[2024-08-06 15:24] LABS: ALT 18 U/L (10-49); AST 20 U/L (14-35); Albumin 4.3 g/dL (3.8-4.9); Albumin/Globulin Ratio 1.79 Ratio (1.60-3.17); Alkaline Phosphatase 71 U/L (41-126); BUN/Creat Ratio 19.73 Ratio (12.00-20.00); Blood Urea Nitrogen 29.6 mg/dL (9.0-27.0); Calcium 10.3 mg/dL (8.7-10.3); Carbon Dioxide 27.4 mmol/L (21.6-31.8); Chloride 102 mmol/L (96-109); Chol/HDL Ratio 2.97 Ratio; Globulin 2.4 g/dL (1.6-3.3); Glucose 126 mg/dL (70-110); LDL Cholesterol,Calculated 51.6 mg/dL (0.0-131.0); Potassium 4.4 mmol/L (3.5-5.5); Sodium 142 mmol/L (135-145); Total Bilirubin 0.3 mg/dL (0.3-1.2); Total Protein 6.7 g/dL (6.2-8.2); VLDL Calculation 17.98 mg/dL (5.00-40.00)
== END | disposition home or self-care (01) ==
LOC: LABWHC1 09:12
PROVIDERS: ATTEND Internal Medicine Geriatric Medicine
DX: E11.21 Type 2 diabetes mellitus with diabetic nephropathy (principal); E11.22 Type 2 diabetes mellitus with diabetic chronic kidney disease; E78.2 Mixed hyperlipidemia; N18.2 Chronic kidney disease, stage 2 (mild)
CPT/HCPCS: 36415; 80053; 80061; 83036; 85025

== ENCOUNTER 2024-09-22 15:08 | Emergency (ER) | payer MEDICARE, OTHER ==
[2024-09-22 15:44] VITALS: RESP 18
[2024-09-22] MEDS: DIPH,PERTUS(ACELL)TETVAC-LF 0.5 ML VIAL IM ONE (16:12)
--- NOTE | 2024-09-22 16:12 | ED ---
Wound/Laceration HPI - General Chief Complaint: Wound/Laceration Stated Complaint: L hand laceration Time Seen by Provider: 09/22/24 16:00 Source: patient, RN notes reviewed Mode of arrival: ambulatory Limitations: no limitations - History of Present Illness Initial Comments: 68-year-old male presenting for left thumb laceration 4 hours ago. States he was cutting steel with a cutting wheel when he accidentally sliced his left thumb. No other injuries. States he continued to work however could not control the bleeding as he states he is on blood thinners. Last tetanus unknown. - Related Data Home Medications Medication Instructions Recorded Confirmed Fenofibrate Nanocrystallized 145 mg PO DAILY 01/16/21 05/12/24 [Fenofibrate] Glimepiride [Amaryl] 1 mg PO BID 01/16/21 05/12/24 Metoprolol Succinate (ER) [Toprol 100 mg PO DAILY 01/16/21 05/12/24 XL] Atorvastatin Calcium [Lipitor] 80 mg PO HS 05/17/21 05/12/24 Spironolactone [Aldactone] 25 mg PO DAILY 05/17/21 05/12/24 Tamsulosin HCl [Flomax] 0.4 mg PO DAILY 05/17/21 05/12/24 Furosemide [Lasix] 40 mg PO BID 07/10/22 05/12/24 Omeprazole 40 mg PO DAILY 07/10/22 05/12/24 Insulin Glargine [Lantus Vial] 25 units SQ HS 05/30/23 05/12/24 Semaglutide [Ozempic] 0.5 mg SQ WE 05/12/24 05/12/24 allopurinoL [Zyloprim] 100 mg PO DAILY 05/12/24 05/12/24 hydrALAZINE HCL [Apresoline] 100 mg PO BID 05/12/24 05/12/24 Previous Rx's Medication Instructions Recorded Clopidogrel [Plavix] 75 mg PO DAILY #30 tab 09/07/15 Apixaban [Eliquis] 2.5 mg PO BID #0 tab 02/24/21 Cefuroxime [Ceftin] 500 mg PO BID 7 Days #14 tab 05/14/24 Cephalexin [Keflex] 500 mg PO Q12HR 5 Days #10 cap 09/22/24 Allergies Allergy/AdvReac Type Severity Reaction Status Date / Time No Known Allergies Allergy Verified 09/22/24 15:39 Review of Systems ROS Statement: Those systems with pertinent positive or pertinent negative responses have been documented in the HPI. ROS Other: All systems not noted in ROS Statement are negative. Past Medical History Past Medical History: Chest Pain / Angina, Heart Failure, Diabetes Mellitus, Hyperlipidemia, Hypertension, Myocardial Infarction ([place]), Osteoarthritis (OA), Vascular Disorder Additional Past Medical History / Comment(s): PAD, PVD Last Myocardial Infarction Date:: 02/2014 History of Any Multi-Drug Resistant Organisms: MRSA Date of last positivie culture/infection: 07/02/22 MDRO Source:: Left Arm Past Surgical History: Adenoidectomy, AICD, Appendectomy, Heart Catheterization, Orthopedic Surgery, Pacemaker, Tonsillectomy Additional Past Surgical History / Comment(s): Abdominal aortogram with runoff, Redo bilateral femfem crossover graft in March in [facility]. Other SX: left leg arterial bypass, pacemaker/defibrillator, sx lt hand, rt foot, cataracts,ABD AORTAGRAM,LEFT ARTERIAL ANGIOGRAM, LEFT ILIAC STENTING 09/05/15, R ankle surgery. Past Anesthesia/Blood Transfusion Reactions: No Reported Reaction, Postoperative Nausea & Vomiting (PONV) Type of Cardiac Device: Permanent Pacemaker, AICD Device Placement Date:: February 2014 Past Psychological History: No Psychological Hx Reported Smoking Status: Former smoker Past Alcohol Use History: None Reported Past Drug Use History: None Reported - Past Family History Mother Family Medical History: Cancer Sister(s) Family Medical History: Cancer General Exam Limitations: no limitations General appearance: alert, in no apparent distress Head exam: Present: atraumatic, normocephalic, normal inspection Right Elbow exam: Present: normal inspection, full ROM. Absent: tenderness, swelling Forearm Wrist exam: Present: normal inspection, full ROM. Absent: tenderness, swelling Hand Wrist exam: Present: full ROM, laceration (4 cm linear laceration present at base of dorsal aspect of left thumb, no active bleeding). Absent: tenderness, swelling, erythema Vascular: Present: normal capillary refill, radial pulse. Absent: vascular comp romise (Full sensation at distal aspect of first digit of left hand) Neurological exam: Present: alert, oriented X3 Psychiatric exam: Present: normal affect, normal mood Skin exam: Present: warm, dry, intact, normal color. Absent: rash Course Vital Signs 09/22/24 09/22/24 15:40 18:15 Temperature 98.7 F 98.8 F Pulse Rate 91 82 Respiratory 18 18 Rate Blood Pressure 137/79 159/98 O2 Sat by Pulse 97 95 Oximetry Procedures - Laceration Laceration #1 Consent Obtained: verbal consent Indication: laceration Site: hand Size (cm): 4 Description: linear Depth: simple, single layer Sedation/Analgesia: none Anesthetic Used: lidocaine 1%, without epi Anesthesia Technique: local infiltration Amount (mls): 4 Pre-repair: wound explored, irrigated extensively, deep structures intact Type of Sutures: nylon Size of Sutures: 4-0 Number of Sutures: 4 Technique: simple, interrupted Patient Tolerated Procedure: well, no complications Additional Comments: Neurovascularly intact status post procedure Medical Decision Making - Medical Decision Making Was pt. sent in by a medical professional or institution (ZOEY Li, EXAMINATION SUPERVISOR, urgent care, hospital, or fdc...) When possible be specific @ -No Did you speak to anyone other than the patient for history (EMS, parent, family, police, friend...)? What history was obtained from this source @ -No Did you review nursing and triage notes (agree or disagree)? Why? @ -I reviewed and agree with nursing and triage notes Were old charts reviewed (outside hosp., previous admission, EMS record, old EKG, old radiological studies, urgent care reports/EKG's, fdc records)? Report findings @ -No old charts were reviewed Differential Diagnosis (chest pain, altered mental status, abdominal pain women, abdominal pain men, vaginal bleeding, weakness, fever, dyspnea, syncope, headache, dizziness, GI bleed, back pain, seizure, CVA, palpatations, mental health, musculoskeletal)? @ -Differential Musculoskeletal Muscular strain, contusion, ligament sprain, fracture, arthritis, septic arthritis, bursitis, cellulitis, muscle spasm, nerve compression, DVT, arterial occlusion, herpes zoster, electrolyte abnormality, tumor.... This is not meant to be in all inclusive list EKG interpreted by me (3pts min.). @ -None X-rays interpreted by me (1pt min.). @ -X-ray left hand reveals no acute process CT interpreted by me (1pt min.). @ -None done U/S interpreted by me (1pt. min.). @ -None done What testing was considered but not performed or refused? (CT, X-rays, U/S, labs)? Why? @ -None What meds were considered but not given or refused? Why? @ -None Did you discuss the management of the patient with other professionals (professionals i.e. , PA, EXAMINATION SUPERVISOR, lab, RT, psych nurse, social work program coordinator, tugboat pilot, teacher, front desk officer, senior case manager)? Give summary @ -No Was smoking cessation discussed for >3mins.? @ -No Was critical care preformed (if so, how long)? @ -No Were there social determinants of health that impacted care today? How? (Homelessness, low income, unemployed, alcoholism, drug addiction, transportation, low edu. Level, literacy, decrease access to med. care, fdc, rehab)? @ -No Was there de-escalation of care discussed even if they declined (Discuss DNR or withdrawal of care, Hospice)? DNR status @ -No What co-morbidities impacted this encounter? (DM, HTN, Smoking, COPD, CAD, Cancer, CVA, ARF, Chemo, Hep., AIDS, mental health diagnosis, sleep apnea, morbid obesity)? @ -None Was patient admitted / discharged? Hospital course, mention meds given and rout e, prescriptions, significant lab abnormalities, going to OR and other pertinent info. @ -Discharged. This is a 68-year-old male presenting to the ER with chief complaint of left hand laceration 4 hours ago. Patient cut his hand on a blade while cutting steel. Patient is on thinners. On examination, there is a 4 cm linear laceration on base of thumb dorsal aspect of left hand. Neurovascularly intact. Tetanus was updated. X-ray left hand reveals no acute process. Wound was thoroughly irrigated and 4 sutures were placed with no complications. Patient was placed on Keflex for antibacterial prophylaxis. Supportive care discussed as well as return precautions. Advised to follow-up in 7 days for suture removal. Case was discussed with my ER attending Dr. Painter. Patient discharged in stable condition. Undiagnosed new problem with uncertain prognosis? @ -No Drug Therapy requiring intensive monitoring for toxicity (Heparin, Nitro, Insulin, Cardizem)? @ -No Were any procedures done? @ -Yes, 4 sutures placed to the left hand Diagnosis/symptom? @ -Left hand laceration Acute, or Chronic, or Acute on Chronic? @ -Acute Uncomplicated (without systemic symptoms) or Complicated (systemic symptoms)? @ -Uncomplicated Side effects of treatment? @ -No Exacerbation, Progression, or Severe Exacerbation? @ -No Poses a threat to life or bodily function? How? (Chest pain, [place], [place], pneumonia, PE, COPD, DKA, ARF, appy, cholecystitis, CVA, Diverticulitis, Homicidal, Suicidal, threat to staff... and all critical care pts) @ -No Disposition Clinical Impression: Laceration of left hand Disposition: HOME SELF-CARE Condition: Stable Instructions (If sedation given, give patient instructions): Laceration (ED) Additional Instructions: Take Keflex twice daily for 5 days. Follow-up in 7 days for suture removal. Please return to the Emergency Department if symptoms worsen or any other concerns. Prescriptions: Cephalexin [Keflex] 500 mg PO Q12HR 5 Days #10 cap Is patient prescribed a controlled substance at d/c from ED?: No Referrals: Rinku Jarvis MD [Primary Care Provider] - 1-2 days Time of Disposition: 18:09
[2024-09-22] MEDS: LIDOCAINE 1% INJ 10MG/ML (20 ML MDV) SQ ONE (16:14)
--- NOTE | 2024-09-22 16:51 | XR ---
EXAMINATION TYPE: XR hand complete LT DATE OF EXAM: 09/22/2024 COMPARISON: None HISTORY: Left hand injury laceration first digit from grinding wheel TECHNIQUE: 3 view left hand FINDINGS: Bandaging is over the metacarpal phalangeal joint space of the thumb. No acute fractures id entified. There may be deformity of the distal tuft of the index finger. No radiopaque foreign bodies identified. IMPRESSION: 1. No acute osseous abnormality left hand 2. Soft tissue injury left thumb [facility], Workstation: [facility], 09/22/2024 4:48 PM
[2024-09-22 18:17] VITALS: BP 159/98; PULSE 82; TEMP 98.8
== END 2024-09-22 18:18 | disposition home or self-care (01) ==
LOC: EC 15:08
CPT/HCPCS: 90471; 90715; 99283